=== PATIENT | male | born 1955 | race Hispanic/Latino ===

== ENCOUNTER 2017-08-25 09:33 | Outpatient (CLI) | payer MEDICARE ==
--- NOTE | 2017-08-25 12:47 | ULT ---
RIGHT UPPER QUADRANT ULTRASOUND: INDICATION: Pain. FINDINGS: There is coarsened, increased echotexture of the hepatic parenchyma without a discrete mass visualiz ed. No acute gallbladder pathology. The common duct is normal at 6 mm. No ascites. IMPRESSION: 1. No acute gallbladder pathology. 2. Coarsened, increased echotexture of the hepatic parenchyma. This could be on the basis of hepat ic steatosis or hepatocellular disease. This could be further assessed with dedicated liver functio n enzyme analysis. POS: [facility]
== END 2017-08-25 09:34 | disposition home or self-care (01) ==
LOC: ULT 09:33
PROVIDERS: ATTEND Surgery
DX: R10.9 Unspecified abdominal pain (principal); K76.89 Other specified diseases of liver
CPT/HCPCS: 76705

== ENCOUNTER 2018-01-18 16:24 | Inpatient (IN) | payer MEDICARE ==
[~2018-01-18 16:24] MED LIST: ISOVUE-370 76%-LOCM 1 ML ONE; Iopamidol 370 76% 50 ML VIAL FS ONE
[2018-01-18 16:45] LABS: #Basophils 0.1 thou/uL (0.0-0.2); #Eosinphils 0.1 thou/uL (0.0-0.7); #Lymphocytes 2.7 thou/uL (1.20-3.40); #Monocytes 0.9 thou/uL (0.11-0.59); #Neutrophils 10.4 thou/uL (1.40-6.50); %Basophils 0.5 % (0.0-1.0); %Eosinophils 0.5 % (0.0-10.0); %Lymphocytes 19.1 % (21.0-51.0); %Monocytes 6.4 % (0.0-10.0); %Neutrophils 73.4 % (42.0-75.0); Hemoglobin 14.7 g/dL (14.0-18.0); Mean Corpuscular HGB CONC 31.3 g/dL (32.0-36.0); Mean Corpuscular Hemoglobin 28.4 pg (27.0-31.0); Mean Corpuscular Volume 90.7 fl (80.0-94.0); Mean Platelet Volume 7.4 fL (7.4-10.4); Platelet Count 198 thou/uL (130-400); RBC Distribution Width 14.2 % (11.5-14.5); Red Blood Cell (RBC) Count 5.16 mill/uL (4.70-6.10); White Blood Cell (WBC) Count 14.2 thou/uL (4.8-10.8)
[2018-01-18 17:02] LABS: ALT (SGPT) 78 U/L (8-55); AST (SGOT) 79 U/L (5-34); Albumin 4.5 g/dL (3.5-5.0); Alkaline Phosphatase 116 U/L (40-150); Anion Gap 21 mmol/L (10-20); BUN (Urea Nitrogen) 17 mg/dL (8.4-25.7); Bilirubin, Total 1.2 mg/dL (0.2-1.2); CK (CPK) 91 U/L (30-200); Calc. Creatinine Clearance 0 mL/min (70-130); Calcium 9.9 mg/dL (7.8-10.44); Carbon Dioxide 17 mmol/L (22-29); Chloride 104 mmol/L (98-107); Estimated GFR-MDRD 35; Globulin 4.6 g/dL (2.4-3.5); Glucose 187 mg/dL (70-105); Lipase 27 U/L (8-78); Potassium 4.2 mmol/L (3.5-5.1); Protein, Total 9.1 g/dL (6.0-8.3); Sodium 138 mmol/L (136-145)
[2018-01-18 17:06] LABS: CKMB 1.6 ng/mL (0-6.6)
[2018-01-18] MEDS ORDERED: Ondansetron HCl/PF 4 MG/2 ML Vial ONE (17:20)
--- NOTE | 2018-01-18 17:25 | RAD ---
CHEST ONE VIEW: History: Chest pain Comparison: 09-11-15 FINDINGS: Cardiac silhouette is magnified by projection. Pulmonary vasculature is unremarkable. There is no lob ar consolidation or evidence of pneumothorax. school lunch monitor leads overlie the chest. IMPRESSION: No active cardiopulmonary abnormalities are demonstrated. POS: H
--- NOTE | 2018-01-18 19:19 | CT ---
CT ABDOMEN AND PELVIS WITH IV AND ORAL CONTRAST: History: Upper abdomen pain. FINDINGS: Comparison 09-18-15. The lung bases are clear. Gallbladder is now distended up to 13.3 cm. No biliary dilatation is otherw ise demonstrated. No stones or other signs of gallbladder inflammation. The spleen, kidneys, adrenal glands, and pancreas are unremarkable. Diverticula arise from the colon without adjacent inflammation. No evidence of bowel obstruction. Appendix is not inflamed. IMPRESSION: 1. Marked distention of the gallbladder without other abnormalities apparent. Clinical correlation re garding other signs and symptoms of gallbladder outlet obstruction and cholecystitis is required. POS: [facility]
--- NOTE | 2018-01-18 20:19 | ULT ---
RIGHT UPPER QUADRANT ULTRASOUND: History: Right upper quadrant pain. FINDINGS: Gallbladder is distended, as detailed on recent CT. There is no gallbladder wall thickening or perich olecystic fluid. Patient was reportedly not tender over the gallbladder fossa at the time of the exam . Small amount of nonshadowing sludge is present within the gallbladder lumen. Liver is diffusely ech ogenic. No free fluid. Common duct is 0.8 cm. IMPRESSION: 1. Distention of the common duct and gallbladder suggests possibility of chronic central biliary obst ruction and ascending lesion was not apparent on CT. Please consider endoscopic correlation. 2. Biliary sludge within the gallbladder. Patient was not tender over the gallbladder fossa at the ti me of the exam arguing against acute cholecystitis. 3. Hepatosteatosis. POS: [facility]
[2018-01-18] MEDS ORDERED: Nitroglycerin 2% Ointment 1 INCH/1 GM Packet ONE (20:49)
[2018-01-18 21:15] LABS: Bilirubin Negative (Negative); Blood, Urine Negative (Negative); Clarity CLEAR (Clear); Glucose, Urine (Dipstick) Negative (Negative); Leukocyte Negative (Negative); Nitrite Negative (Negative); Protein, Urine (Dipstick) Trace mg/dL (Neg-Trace); Specific Gravity, Urine 1.034 (1.002-1.036); pH, Urine 5.5 (5.0-9.0)
[2018-01-18] MEDS ORDERED: Piperacillin/Tazobactam 4.5 GM in Sodium Chloride 0.9% 100 ML IVPB SCH (21:15)
[2018-01-18 21:56] LABS: Troponin I 0.074 ng/mL (< 0.028)
--- NOTE | 2018-01-18 22:17 | CON ---
DATE OF CONSULTATION: 01/18/2018 REASON FOR CONSULTATION: Been consulted by Dr. Yousif at [facility] to see him urgent ly for right upper quadrant pain. HISTORY OF PRESENT ILLNESS: This is a 62-year-old male with a history of chronic back pain, BPH. He has actually seen Dr. Eason to make plans for prostate surgery who presents after extensive workup by Dr. Marshall, Dr. Hicks in the past for chronic episode upper abdominal pain. Tonight, he was serg cribing more sharp, severe pain in the right upper quadrant. His ultrasound shows a large gallbladde r without any inflammatory change. His CT scan is normal except for a dilated gallbladder. The baron ent does not have gallstones. Denies history of jaundice or pancreatitis. He denies any alcohol use or abuse. Pain is described as 10/10 in the right upper quadrant, radiates down towards his right b ack. He is also worried this may be his umbilical hernia is causing him problems. PAST MEDICAL HISTORY: Includes hypertension, hyperlipidemia, asthma. PAST SURGICAL HISTORY: Orthopedic right hip bilateral elbow, wrist and back. SOCIAL HISTORY: No smoking, alcohol or other drugs. ALLERGIES: OXYCONTIN. MEDICINES: He says he takes 7 medicines, unknown antihypertensive, unknown lipid drug. He also take s tramadol and a couple of other pain medicines that he is unsure of. He does think that they are na rcotics. He has not been taking them in the last few days because he did not feel well. REVIEW OF SYSTEMS: Ten system review of systems otherwise negative unless described above. PHYSICAL EXAMINATION: VITAL SIGNS: Blood pressure is 129/84, pulse is 107, respirations are 14. GENERAL: The patient is alert, oriented. He is shaky and appears very nervous. HEENT: Sclerae are anicteric. Oropharynx clear. NECK: No lymphadenopathy. CHEST: Clear. HEART: Increased rate, regular rhythm without murmur. ABDOMEN: Soft. He is tender in the right upper quadrant with localized guarding, no rebound tendern ess. No abdominal or inguinal hernias that I can feel. EXTREMITIES: No ischemia or edema to extremities. LABORATORY DATA: White blood cell count is 14, hemoglobin 14, platelet count is 198. Sodium 138, po tassium 4.2, creatinine 1.94. His lactic acid is 5.1, troponin 0.1, CK-MB 1.6. Lipase normal at 27. AST, ALT are elevated at 79 and 78. Ultrasound of the abdomen, distention of the gallbladder witho ut stones. CT of the abdomen, distention of the gallbladder without any other abnormality. ASSESSMENT AND PLAN: Severe upper abdominal pain in a patient with a history of recent EGD and being seen by Dr. Marshall, previously had a workup by Dr. Hicks. He was supposed to have an outpatient H BLUE scan, but there was some confusion about the scheduling. He also sounds like he takes a lot of n arcotics for his chronic back pain. He certainly does not have an acute abdomen. His CT scan shows no free air, free fluid, or inflammatory change. He is very tender in the right upper quadrant. Uns ure of the etiology of this is not explained by CT or ultrasound. He does have distention of the gal lbladder, which can be normal in and of itself is not an abnormality probably does need HIDA scan to rule out acalculous cholecystitis that would not be done until tomorrow. I recommended that he be ad mitted to the medical service.
--- NOTE | 2018-01-18 22:37 | PDOC.FPRHP ---
- History of Present Illness Chief Complaint: abd pain, diarrhea, nausea History of Present Illness: pt seen @ 2240 Pt is a 62 yo M w/ PMH of DMII, chronic back pain, htn, hld, previously dx'd mild transaminitis who presents with 2 day h/o diarrhea, nasuea w/o vomiting, sinus congestion, chills, and shaking that has progressively worsening. He has not tried anything at home to attempt to relieve the pain, but reports the pain is relieved by morphine. He states the pain is worse when he bends over or with movement. He describes the diarrhea as watery and is going approx 5-6 times a day. He denies chest pain, sob, changes in vision. He does see a specialist for his chronic pain and receives injections for that but denies any other opiate use besides tramadol. He had labs drawn in clinic that shoed a normal white count approx 1 week ago in addition to mild transaminitis with normal alk phos and a creatinine of 1.21. In the ED pt was given zosyn, morphine, aspirin and nitro. ED Course: In the ED pt was given zosyn, morphine, aspirin and nitro. - Allergies/Adverse Reactions Allergies Allergy/AdvReac Type Severity Reaction Status Date / Time oxycodone HCl Allergy Verified 09/30/15 18:22 [From OxyContin] - Home Medications Medication Instructions Recorded Confirmed Type Finasteride 5 mg PO DAILY 01/18/18 01/18/18 History Gabapentin [Gralise] 600 mg PO TID 01/18/18 01/19/18 History Linaclotide [Linzess] 290 mcg PO DAILY-AC 01/18/18 01/18/18 History Meloxicam [Mobic] 15 mg PO DAILY 01/18/18 01/18/18 History Omeprazole 40 mg PO BID 01/18/18 01/18/18 History Oxybutynin Chloride [Ditropan XL] 10 mg PO DAILY 01/18/18 01/18/18 History Tamsulosin HCl [Flomax] 0.4 mg PO BID 01/18/18 01/18/18 History metFORMIN HCl [Metformin HCl] 1,000 mg PO BID 01/18/18 01/18/18 History traMADol HCl [Ultram] 50 mg PO TID PRN 01/18/18 01/18/18 History Aspirin [Ecotrin] 81 mg PO DAILY 01/19/18 01/19/18 History tiZANidine HCl [Zanaflex] 4 mg PO TID PRN 01/19/18 01/19/18 History - History PMHx: chronic back pain, hepatic steatosis, CKD, DMII, HTN, HLD PSHx: Hip replacement FHx: Grandfather CVA Social: Denies tobacco, denies alcohol, denies drugs - Review of Systems General: reports: fever/chills, weight/appetite/sleep changes. denies: night sweats Eyes: denies: eye pain, vision changes ENT: reports: nasal congestion. denies: rhinorrhea Respiratory: denies: cough, congestion, shortness of breath Cardiovascular: denies: chest pain, palpitation, edema Gastrointestinal: reports: nausea, diarrhea, abdominal pain. denies: vomiting, constipation, GI bleeding Genitourinary: denies: dysuria Skin: denies: rashes, jaundice, itching Musculoskeletal: reports: pain, arthritis/arthralgias Neurological: reports: weakness. denies: numbness, syncope - Vital signs BP: 157/76 HR:106 RR: 21 Tmax: 99 Pox: 100% on RA Wt: 97Kg - Physical Exam Constitutional: awake, alert and oriented, other (Obese, mildly distressed) HEENT: normocephalic and atraumatic, PERRLA, EOMI, conjunctiva clear, no scleral icterus, grossly normal hearing, oropharynx clear Neck: supple, trachea midline, no LAD, no JVD Chest: no-tender to palpation, no lesions Heart: RRR, normal S1/S2, no murmurs/rubs/gallops, pulses present, no edema Lungs: CTAB, no respiratory distress, good air movement, no rales/rhonchi, no wheezing, no retractions Abdomen: soft, bowel sounds present, other (rectus diastasis, diffusely ttp but distractable. No focal tenderness. Negfative murphys, negative mcburneys) Musculoskeletal: normal tone, ROM grossly normal Neurological: no focal deficit Skin: no rash/lesions, good turgor, capillary refill <2 seconds, no jaundice Heme/Lymphatic: no purpura, no petechia Psychiatric: normal mood and affect FMR H&P: Results - Labs Result Diagrams: 01/19/18 03:56 01/19/18 03:56 Lab results: WBC 14.2 thou/uL (4.8-10.8) H 01/18/18 16:30 Hgb 14.7 g/dL (14.0-18.0) 01/18/18 16:30 Hct 46.8 % (42.0-52.0) 01/18/18 16:30 MCV 90.7 fl (80.0-94.0) 01/18/18 16:30 Plt Count 198 thou/uL (130-400) 01/18/18 16:30 Neutrophils % 73.4 % (42.0-75.0) 01/18/18 16:30 Sodium 138 mmol/L (136-145) 01/18/18 16:30 Potassium 4.2 mmol/L (3.5-5.1) 01/18/18 16:30 Chloride 104 mmol/L (98-107) 01/18/18 16:30 Carbon Dioxide 17 mmol/L (22-29) L 01/18/18 16:30 BUN 17 mg/dL (8.4-25.7) 01/18/18 16:30 Creatinine 1.94 mg/dL (0.6-1.3) H 01/18/18 16:30 Glucose 187 mg/dL (70-105) H 01/18/18 16:30 Lactic Acid 5.1 mmol/L (0.5-2.2) H* 01/18/18 16:30 Calcium 9.9 mg/dL (7.8-10.44) 01/18/18 16:30 Total Bilirubin 1.2 mg/dL (0.2-1.2) 01/18/18 16:30 AST 79 U/L (5-34) H 01/18/18 16:30 ALT 78 U/L (8-55) H 01/18/18 16:30 Alkaline Phosphatase 116 U/L (40-150) 01/18/18 16:30 Creatine Kinase 91 U/L (30-200) 01/18/18 16:30 CK-MB (CK-2) 1.6 ng/mL (0-6.6) 01/18/18 16:30 Serum Total Protein 9.1 g/dL (6.0-8.3) H 01/18/18 16:30 Albumin 4.5 g/dL (3.5-5.0) 01/18/18 16:30 Lipase 27 U/L (8-78) 01/18/18 16:30 Urine Ketones Negative mg/dL (Negative) 01/18/18 21:09 Urine Blood Negative (Negative) 01/18/18 21:09 Urine Nitrite Negative (Negative) 01/18/18 21:09 Ur Leukocyte Esterase Negative (Negative) 01/18/18 21:09 - EKG Interpretation EKG: sinus tachycardia - Radiology Interpretation Chest x-ray Status: report reviewed by me (NAD) CT scan - abdomen Status: report reviewed by me (Marked distension of gallbladder) US - abdomen Status: report reviewed by me (Hepatic steatosis. Dilated common duct. Biliary sludge. Negative sonographic Yousif's.) FMR H&P: A/P - Problem List (1) Sepsis due to other etiology Current Visit: Yes Status: Acute Code(s): A41.89 - OTHER SPECIFIED SEPSIS (2) Lactic acidosis Current Visit: Yes Status: Acute Code(s): E87.2 - ACIDOSIS (3) Gastroenteritis Current Visit: Yes Status: Suspected Code(s): K52.9 - NONINFECTIVE GASTROENTERITIS AND COLITIS, UNSPECIFIED (4) Transaminitis Current Visit: Yes Status: Chronic Code(s): R74.0 - NONSPEC ELEV OF LEVELS OF TRANSAMNS & LACTIC ACID DEHYDRGNSE (5) JAZMYN (acute kidney injury) Current Visit: Yes Status: Acute Code(s): N17.9 - ACUTE KIDNEY FAILURE, UNSPECIFIED (6) DMII (diabetes mellitus, type 2) Current Visit: Yes Status: Chronic (7) Hepatic steatosis Current Visit: Yes Status: Suspected Code(s): K76.0 - FATTY (CHANGE OF) LIVER, NOT ELSEWHERE CLASSIFIED (8) HTN (hypertension) Current Visit: Yes Status: Chronic Code(s): I10 - ESSENTIAL (PRIMARY) HYPERTENSION - Plan 1) Sepsis: - WBC 14K, tachycardic @ 102, tachypnic @ 22 abd source suspected - BP stable, admit medical - likely 2/2 viral gastroenteritis vs bacterial gastroenteritis/colitis vs cholecystitis - will check stool studies - pt had negative sonographic murphys, negative ct and has had mildly elevated transaminases in the past. Given this and normal alk phos, acute acalculous cholecystitis is unlikely - Continue IVF NS @ 150mls/hr - continue zosyn 2) Lactic acidosis - Has trended down - Continue IVF with NS @ 150mls/hr - 2/2 1 in addition to decreased po intake and diarrhea 3) Gastroenteritis: - Suspected - See #1 - Will check Flu rapid swab 4) Transaminitis: - chronic, unchanged from clinic labs, given US finding likely 2/2 steatosis - am cmp 5) JAZMYN: - 2/2 volume depletion - IVF NS @ 150 - AM CMP, trend and avoid nephrotoxic agents - recent creatinine in clinic 1.2 - will check urine NA, Ur Cr - likely pre-renal 6) DMII: - Will hold metformin 2/2 jazmyn - Mild SSI - accuchecks ACHS - consistent carb/hh diet 7) Hepatic steatosis, suspected: - See 4 8) HTN: - Not currently on medications at home - will trend vitals - BP meds as indicated - AVOID kris/arb 2/2 JAZMYN 9) Chronic pain: - continue home meds - UDS 11) PPX: pepcid and scds for GI and DVT PPX, respectively Disposition/LOS: stable, >/= 2 days. Symptomatic meds will be provided FMR H&P: Upper Level - Pertinent history Patient is 62yo M with PMHx of chronic low back pain, T2DM, BPH, HLD and GERD who presents with abdominal pain. Reports he has had abd pain for the past 2wks but it has worsened over the past 2 days. He was seen at [facility] today and was tachycardic and diaphoretic and instructed to go to the ED for further evaluation. Also reports chills, nausea, diarrhea and cough. Reports diarrhea over the past 2 days about 5 episodes of non-bloody, watery diarrhea/day. Of note, patient is followed by Dr. Hicks for his ventral hernia and has plans for surgery. Also followed by Dr. Marshall of GI and looking over records had an EGD done on 09/09/17 with path showing reactive gastropathy, no H.pylori or Barretts. - Pertinent findings Gen: obese, tremulous HEENT: PERRLA CV: S1 S2, RRR Resp: CTAB Abd: TTP diffusely, more significant at RUQ but distractible, no rebound, diastasis recti Ext: no cyanosis or edema - Plan Date/Time: 01/18/18 5183 ISuha, have evaluated this patient and agree with findings/plan as outlined by human resource intern resident. Pertinent changes/additions are listed here. 1. Abd pain: CT Abd showing marked distension of gallbladder and RUQ showing gallbladder sludge and distension of common duct and gallbladder suggesting possible biliary obstruction. Dr. Hernandez of gen surg was consulted from the ED due to concern for acute abd. Not sure of etiology but recommend HIDA scan to r /o acalculous cholecystitis. Monitor closely overnight. 2. Sepsis: likely 2/2 gastroenteritis vs. abd etiology. Patient with leukocytosis (WBC of 14.2), tachycardia (HR 106) and tachypnea (RR 21). CXR and UA negative. Check flu. Blood and urine cxs pending. Cont Zosyn. Of note, patient was seen at [facility] on 01/14/18 for surgical clearance and had labs done at that time showing WBC of 7.7. 3. Lactic acidosis: patient with elevated lactate of 5.1. Could be secondary to dehydration from gastroenteritis or dev of acute abd. Given 2L bolus of NS in ED. Cont IVF and monitor q2H. 4. Gastroenteritis: likely viral etiology. Obtain stool studies. 5. JAZMYN on CKD2: Cr of 1.94 and normal on 01/14/17 with Cr of 1.21. FeNa studies. Gentle hydration. 6. Chronic transaminitis 2/2 hepatosteatosis: hep panel on 11/2016 negative. 7. Indeterminate trops: asymptomatic. Trend. 8. Chronic lower back pain: Followed by Dr. Good of pain mgmt. at [facility]. States he receives 3 meds for his pain- tramadol, gabapentin and doesnt know the 3rd med as well as injections. According to our records he is also on Naproxen. Hold NSAIDS due to JAZMYN. Obtain UDS. 9. T2DM: A1c of 7.7%. Hold metformin due to JAZMYN. Accuchecks ACHS. 10. GERD: cont home PPI. 11. BPH: cont home Flomax 12. HLD: cont home crestor 13. Diet: NPO 14. PPx: SCDs 15. Code Status: Full Attending Addendum - Attending Addendum Date/Time: 01/19/18 5005 I personally evaluated the patient and discussed the management with Dr. Randall and Maximiliano. Seen on 01/18. I agree with the History, Examination, Assessment and Plan documented above with any addition or exceptions noted below. Sepsis / presumed abdominal source (gastro vs GB vs other) with JAZMYN, lactic acidosis -continue zosyn -cultures -serial abdominal exam -HIDA ordered -fluid, recheck creatinine DM/HTN/Obesity -hold metformin, sugar checks -hold ACEI/ARB, monitor -diet/exercise Hernia -stable, reducible, NTTP
[2018-01-18] MEDS ORDERED: Ondansetron HCl/PF 4 MG/2 ML Vial IVP PRN ×2 (23:04→23:29)
[2018-01-18] MEDS ORDERED: Ondansetron ODT 4 MG TAB SL PRN (23:04)
[2018-01-18] MEDS ORDERED: Morphine 5 MG/ML SYRINGE SLOW IVP PRN (23:05)
[2018-01-18 23:22] VITALS: BMI 33.6
[2018-01-19] MEDS: Sodium Chloride 0.9% 1,000 ML IV SCH ×6 (00:52→17:52)
[2018-01-19] MEDS: Morphine 5 MG/ML SYRINGE SLOW IVP PRN ×2 (00:53→06:36)
[2018-01-19 01:06] LABS: Troponin I 0.071 ng/mL (< 0.028)
[2018-01-19] MEDS ORDERED: Dextrose 50% Abboject 50 ML SYRINGE SLOW IVP PRN (01:49)
[2018-01-19] MEDS ORDERED: HumaLOG 300 UNITS/3 ML VIAL SC PRN (01:49)
[2018-01-19] MEDS ORDERED: Dextrose 5% in Water 1,000 ML IV PRN (01:49)
[2018-01-19 02:12] LABS: Amphetamine Not Detected (NotDetected); Barbiturates Screen Not Detected (NotDetected); Benzodiazepine Screen Not Detected (NotDetected); Cocaine Metabolite Screen Not Detected (NotDetected); Medtox Control Line Valid? VALID (VALID); Medtox Reader # READER 1; Methadone Not Detected (NotDetected); Methamphetamine Not Detected (NotDetected); Opiate Screen Detected (NotDetected); Oxycodone Screen Not Detected (NotDetected); Phencyclidine (PCP) Not Detected (NotDetected); THC/Cannabinoid Screen Not Detected (NotDetected); Tricyclic Screen Not Detected (NotDetected)
[2018-01-19 02:25] LABS: Creatinine, Urine 127.92 mg/dL (63-166)
[2018-01-19 04:09] LABS: #Eosinphils 0.1 thou/uL (0.0-0.7); #Lymphocytes 2.3 thou/uL (1.20-3.40); #Monocytes 0.7 thou/uL (0.11-0.59); #Neutrophils 6.9 thou/uL (1.40-6.50); %Basophils 0.4 % (0.0-1.0); %Eosinophils 1.4 % (0.0-10.0); %Lymphocytes 23.2 % (21.0-51.0); %Monocytes 7.2 % (0.0-10.0); %Neutrophils 67.8 % (42.0-75.0); Hemoglobin 12.1 g/dL (14.0-18.0); Mean Corpuscular HGB CONC 31.9 g/dL (32.0-36.0); Mean Corpuscular Volume 90.8 fl (80.0-94.0); Mean Platelet Volume 6.8 fL (7.4-10.4); Platelet Count 122 thou/uL (130-400); RBC Distribution Width 13.9 % (11.5-14.5); Red Blood Cell (RBC) Count 4.18 mill/uL (4.70-6.10); White Blood Cell (WBC) Count 10.1 thou/uL (4.8-10.8)
[2018-01-19 04:22] LABS: Lactic Acid 2.4 mmol/L (0.5-2.2)
[2018-01-19 04:26] LABS: ALT (SGPT) 75 U/L (8-55); AST (SGOT) 85 U/L (5-34); Albumin 3.7 g/dL (3.5-5.0); Alkaline Phosphatase 94 U/L (40-150); Anion Gap 14 mmol/L (10-20); BUN (Urea Nitrogen) 15 mg/dL (8.4-25.7); Bilirubin, Total 1.1 mg/dL (0.2-1.2); Calc. Creatinine Clearance 80 mL/min (70-130); Calcium 8.5 mg/dL (7.8-10.44); Carbon Dioxide 25 mmol/L (22-29); Chloride 104 mmol/L (98-107); Estimated GFR-MDRD 53; Globulin 3.3 g/dL (2.4-3.5); Glucose 160 mg/dL (70-105); Sodium 139 mmol/L (136-145)
[2018-01-19] MEDS: Ondansetron ODT 4 MG TAB PO PRN ×2 (04:46→17:48)
[2018-01-19] MEDS: tiZANidine HCl 4 MG TAB PO PRN ×2 (04:46→17:49)
[2018-01-19] MEDS: Piperacillin/Tazobactam 3.375 GM in Sodium Chloride 0.9% 100 ML IVPB SCH ×4 (04:46→20:35)
[2018-01-19] MEDS ORDERED: Sodium Chloride 0.9% 1,000 ML IV SCH (09:00)
--- NOTE | 2018-01-19 09:01 | PDOC.FM ---
- Subjective Subjective: Pt seen at bedside in NAD. MULU overnight but pt notes he continues to have diarrhea. Pt denies CP, SOB, vomiting. - Objective MAR Reviewed: Yes Vital Signs & Weight: Vital Signs (12 hours) Temp Pulse Resp BP Pulse Ox 01/19/18 07:37 97.7 F 72 16 92/54 L 99 01/19/18 04:00 98.9 F 91 28 H 138/79 96 01/19/18 00:58 98.9 F 91 30 H 142/69 H 96 Weight Weight 97.386 kg I&O: 01/18/18 01/19/18 01/20/18 06:59 06:59 06:59 Intake Total 799 Output Total 250 Balance 549 Result Diagrams: 01/19/18 03:56 01/19/18 03:56 <Arnie Birmingham - Last Filed: 01/19/18 08:57> - Objective Vital Signs & Weight: Vital Signs (12 hours) Temp Pulse Resp BP BP Pulse Ox 01/19/18 13:53 98 F 68 18 124/59 L 94 L 01/19/18 13:10 98.1 F 70 16 141/69 H 98 01/19/18 09:20 70 119/87 01/19/18 08:00 97.7 F 70 16 97 01/19/18 07:37 97.7 F 72 16 92/54 L 99 01/19/18 04:00 98.9 F 91 28 H 138/79 96 Weight Weight 97.386 kg I&O: 01/18/18 01/19/18 01/20/18 06:59 06:59 06:59 Intake Total 799 Output Total 250 Balance 549 Result Diagrams: 01/19/18 03:56 01/19/18 03:56 <Roland Watts - Last Filed: 01/19/18 15:20> Phys Exam - Physical Examination obese, tremulous HEENT: PERRLA Respiratory: no wheezing, clear to auscultation bilateral Cardiovascular: RRR, no significant murmur Gastrointestinal: positive bowel sounds TTP diffusely, distractable but more sig RUQ, no rebound diastasis recti, reducible Musculoskeletal: pulses present Neurological: moves all 4 limbs Psychiatric: normal affect, A&O x 3 <Arnie Birmingham - Last Filed: 01/19/18 08:57> Dx/Plan (1) Sepsis due to other etiology Code(s): A41.89 - OTHER SPECIFIED SEPSIS Status: Acute Plan: -pt presented with multiple complaints but namely abd pain, diarrhea, and chills -initial concern for acute abd ruled out, general surgery recommendations greatly appreciated -RUQ US showed dilated GB with some sludge but no evidence of acute cholecystitis -pt had tachycardia, mild tachypnea, leukocytosis and likely GI source, meeting criteria for sepsis -multiple stool studies pending -continue empiric zosyn at this time -continue aggressive IVF -proceed with HIDA scan this AM (2) Lactic acidosis Code(s): E87.2 - ACIDOSIS Status: Acute Plan: -likely 2/2 above, continue to trend with IVF and abx (3) JAZMYN (acute kidney injury) Code(s): N17.9 - ACUTE KIDNEY FAILURE, UNSPECIFIED Status: Acute Plan: -likely 2/2 hypovolemia due to diarrhea -improving, cont to monitor (4) DMII (diabetes mellitus, type 2) Status: Chronic Plan: -hold home meds -accuchecks and SSI (5) HTN (hypertension) Code(s): I10 - ESSENTIAL (PRIMARY) HYPERTENSION Status: Chronic Plan: -at goal, continue to monitor (6) Hepatic steatosis Code(s): K76.0 - FATTY (CHANGE OF) LIVER, NOT ELSEWHERE CLASSIFIED Status: Chronic Plan: -hx of hepatic steatosis -LFTs at baseline - Plan Plan: Disposition: Pt stable. Continue to monitor closely. Proceed with HIDA scan this AM. Pt is admitted under inpatient orders for sepsis. <Arnie Birmingham - Last Filed: 01/19/18 08:57> Attending Addendum - Attending Addendum Date/Time: 01/19/18 5969 I personally evaluated the patient and discussed the management with Dr. Birmingham. I agree with the History, Examination, Assessment and Plan documented above with any addition or exceptions noted below. Recently returned from HIDA. Generalized abd pain. GS and have seen pt. Abd tender but no rebound or referred rebound. Cardiology consulted for surgical risk eval. <Roland Watts - Last Filed: 01/19/18 15:20>
[2018-01-19] MEDS: Famotidine/PF 20 mg/2ml Vial SLOW IVP SCH (09:37)
[2018-01-19 09:45] LABS: Syphilis Antibody Nonreactive (Nonreactive); Syphilis Antibody Index 0.07 S/CO (<1.00 Non-Reactive)
[2018-01-19 10:03] LABS: HIV (1/2) Antibody/Antigen NonReactive (NonReactive)
[2018-01-19 10:04] LABS: HIV 1/2 INDEX 0.29 S/CO (<1.00)
[2018-01-19] MEDS ORDERED: Magnesium 2 GM/NS 0.9% 100 ML 2 GM in Premix Bag 1 BAG IVPB SCH (11:00)
[2018-01-19] MEDS: Aspirin 81 mg Enteric Coated Tablet PO SCH (12:27)
[2018-01-19] MEDS: Oxybutynin ER 5 MG TAB PO SCH (12:28)
[2018-01-19] MEDS: Tamsulosin HCl 0.4 MG CAP PO SCH ×2 (12:28→20:34)
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
--- NOTE | 2018-01-19 14:12 | NM ---
HIDA SCAN: Indication: Pain. Comparison: Right upper quadrant ultrasound 01-18-18. Radiopharmaceutical: 5.3 mCi Technetium 99M Mebrofenin IV. 1.9 micrograms CCK 30 minutes prior to exa mination. FINDINGS: The gallbladder activity is seen at 5 minutes. Bowel activity is demonstrated by the 20 minute christopher. IMPRESSION: 1. Visualization of the gallbladder virtually excludes cystic duct obstruction. 2. There is no appreciable obstruction seen involving the common duct with bowel activity demonstrate d by the 20 minute time christopher. POS: [facility]
[2018-01-19] MEDS: traMADol HCl 50 MG TAB PO PRN (17:49)
--- NOTE | 2018-01-19 23:56 | CON ---
DATE OF CONSULTATION: 01/19/2018 HISTORY OF PRESENT ILLNESS: The patient is a 62-year-old gentleman with no history of coronary artery disease who was admitted with abdominal discomfort. The patient has a history of hypertension, and diabetes mellitus. The patient denies any history of chest discomfort or dyspnea. The patient does have limited mobility due to chronic back problem difficulties. The patient was admitted with abdominal discomfort and may need to undergo surgery. PAST MEDICAL HISTORY: 1. Hypertension. 2. Diabetes mellitus. 3. Hypercholesterolemia. 4. Asthma. PAST SURGICAL HISTORY: Hip surgery, carpal tunnel surgery, elbow surgery. SOCIAL HISTORY: He is a nonsmoker. MEDICATIONS: Aspirin 81 daily, gabapentin 600 t.i.d., metformin 1000 b.i.d., Meloxicam 15 daily, omeprazole 40 b.i.d., Flomax 0.4 b.i.d., Finasteride 5 mg daily,and Linzess 290 mcg p.o. daily. FAMILY HISTORY: No strong family history of heart disease. Father did have myocardial infarction at age 74. ALLERGIES: OXYCODONE. REVIEW OF SYSTEMS: Ten-point system otherwise unremarkable. No history of easy bruising, bleeding, bright red blood per rectum. Ten-point system unremarkable. PHYSICAL EXAMINATION: GENERAL: This is an obese gentleman, in no acute distress. VITAL SIGNS: Blood pressure 124/59. NECK: No jugular distention, no carotid bruits. LUNGS: Clear to auscultation. HEART: Regular rate and rhythm, normal S1, S2, no murmurs. ABDOMEN: Nondistended. EXTREMITIES: Show no edema. SKIN: Warm and dry. NEUROLOGIC: Nonfocal. VASCULAR: Radial pulses are 2+. LABORATORY DATA AND IMAGING: White blood count 10.1, hemoglobin 12.1, hematocrit 37.9, platelets are 122. Sodium is 139, potassium 4.0, chloride 104 , bicarbonate 25, BUN 15, creatinine 1.36. Troponin 0.071. His EKG revealed sinus tachycardia, otherwise normal ECG. IMPRESSION: 1. Abdominal discomfort. 2. Hypertension. 3. Dyslipidemia. 4. Asthma. 5. Diabetes mellitus. 6. Indeterminate troponin level. This gentleman may need to undergo noncardiac surgery. His EKG shows no acute ST-T wave changes. His troponin is indeterminate. The patient is asymptomatic. The patient does have limited mobility, but appears to be an acceptable risk for noncardiac surgery. We will check an echocardiogram. We will follow this patient with you through his hospitalization. PHONG
[2018-01-20] MEDS: traMADol HCl 50 MG TAB PO PRN ×3 (00:24→21:51)
[2018-01-20] MEDS: Sodium Chloride 0.9% 1,000 ML IV SCH ×4 (02:48→22:30)
[2018-01-20] MEDS: Piperacillin/Tazobactam 3.375 GM in Sodium Chloride 0.9% 100 ML IVPB SCH ×4 (02:53→21:38)
[2018-01-20 05:35] LABS: Anion Gap 9 mmol/L (10-20); BUN (Urea Nitrogen) 11 mg/dL (8.4-25.7); Calc. Creatinine Clearance 95 mL/min (70-130); Calcium 7.9 mg/dL (7.8-10.44); Carbon Dioxide 25 mmol/L (22-29); Chloride 108 mmol/L (98-107); Estimated GFR-MDRD 66; Glucose 124 mg/dL (70-105); Magnesium 1.8 mg/dL (1.6-2.6); Potassium 4.2 mmol/L (3.5-5.1); Sodium 138 mmol/L (136-145)
--- NOTE | 2018-01-20 06:47 | PDOC.FM ---
- Subjective Subjective: Pt seen at bedside in [facility] [place] overnight, pt notes his abd pain and diarrhea are slightly improved but that he "is ready for surgery." Pt denies BOYD, CP, SOB , NVD, and is tolerating PO well. - Objective MAR Reviewed: Yes Vital Signs & Weight: Vital Signs (12 hours) Temp Pulse Resp BP Pulse Ox 01/20/18 03:33 98.4 F 90 20 145/75 H 96 01/20/18 00:00 97.8 F 63 20 143/69 H 96 01/19/18 20:00 97.8 F 63 20 125/60 96 Weight Weight 97.386 kg I&O: 01/18/18 01/19/18 01/20/18 06:59 06:59 06:59 Intake Total 799 Output Total 250 Balance 549 Result Diagrams: 01/19/18 03:56 01/20/18 04:53 <Arnie Birmingham - Last Filed: 01/20/18 08:38> - Objective Vital Signs & Weight: Vital Signs (12 hours) Temp Pulse Resp BP Pulse Ox 01/20/18 07:47 98.7 F 90 16 174/81 H 96 01/20/18 03:33 98.4 F 90 20 145/75 H 96 01/20/18 00:00 97.8 F 63 20 143/69 H 96 Weight Weight 97.885 kg I&O: 01/19/18 01/20/18 01/21/18 06:59 06:59 06:59 Intake Total 799 2170 Output Total 250 1780 Balance 549 390 Result Diagrams: 01/19/18 03:56 01/20/18 04:53 <Syeda Aguilera - Last Filed: 01/20/18 10:45> Phys Exam - Physical Examination obese HEENT: PERRLA Respiratory: no wheezing, clear to auscultation bilateral Cardiovascular: RRR, no significant murmur Gastrointestinal: positive bowel sounds mildy TTP diffusely, distractable, no rebound Musculoskeletal: pulses present Neurological: moves all 4 limbs Psychiatric: normal affect <Arnie Birmingham - Last Filed: 01/20/18 08:38> Dx/Plan (1) Sepsis due to other etiology Code(s): A41.89 - OTHER SPECIFIED SEPSIS Status: Acute Plan: -pt presented with multiple complaints but namely abd pain, diarrhea, and chills -initial concern for acute abd ruled out, general surgery recommendations greatly appreciated -RUQ US showed dilated GB with some sludge but no evidence of acute cholecystitis -pt had tachycardia, mild tachypnea, leukocytosis and likely GI source, meeting criteria for sepsis -multiple stool studies negative -continue empiric zosyn at this time -continue IVF -HIDA scan 01/19 wnl -cardiology consulted by GS for surgical clearance, recs greatly appreciated. awaiting TTE. (2) Diastasis of rectus abdominis Code(s): M62.08 - SEPARATION OF MUSCLE (NONTRAUMATIC), OTHER SITE Status: Acute Plan: -general surgery recs greatly appreciated (3) BPH (benign prostatic hyperplasia) Code(s): N40.0 - BENIGN PROSTATIC HYPERPLASIA WITHOUT LOWER URINRY TRACT SYMP Status: Acute QualifierTitle: Lower urinary tract symptom presence: symptoms present Lower urinary tract symptom detail: straining on urination Qualified Code(s): N40.1 - Benign prostatic hyperplasia with lower urinary tract symptoms; R39.16 - Straining to void; R39.16 - Straining to void Plan: -pt with hx of BPH and sees urology, Dr. Eason outpatient -per reports, pt had unspecified procedure scheduled -will coordinate care with urology and determine if procedure needs to be done inpatient (4) Lactic acidosis Code(s): E87.2 - ACIDOSIS Status: Resolved Plan: -likely 2/2 above, continue to trend with IVF and abx -normalized (5) JAZMYN (acute kidney injury) Code(s): N17.9 - ACUTE KIDNEY FAILURE, UNSPECIFIED Status: Acute Plan: -likely 2/2 hypovolemia due to diarrhea -improving, cont to monitor (6) DMII (diabetes mellitus, type 2) Status: Chronic Plan: -hold home meds -accuchecks and SSI (7) HTN (hypertension) Code(s): I10 - ESSENTIAL (PRIMARY) HYPERTENSION Status: Chronic Plan: -at goal, continue to monitor (8) Hepatic steatosis Code(s): K76.0 - FATTY (CHANGE OF) LIVER, NOT ELSEWHERE CLASSIFIED Status: Chronic Plan: -hx of hepatic steatosis -LFTs at baseline - Plan Plan: dispo: Pt stable and subjectively improving. Specialist recs greatly appreciated. Continue to monitor closely. <Arnie Birmingham - Last Filed: 01/20/18 08:38> Attending Addendum - Attending Addendum Date/Time: 01/20/18 1015 I personally evaluated the patient and discussed the management with Dr. Birmingham I agree with the History, Examination, Assessment and Plan documented above with any addition or exceptions noted below. Gallbladder dilation and sludge- HIDA scan normal. Appreciate surgical recs. Patient getting cardiac clearance and ECHO pending. Diarrhea- stool studies negative. resolved this am. JAZMYN-resolved Diathesis rectis -await surgical recs. <Syeda Aguilera - Last Filed: 01/20/18 10:45>
[2018-01-20] MEDS: Famotidine/PF 20 mg/2ml Vial SLOW IVP SCH (09:20)
[2018-01-20] MEDS: Tamsulosin HCl 0.4 MG CAP PO SCH ×2 (09:20→21:35)
[2018-01-20] MEDS: Aspirin 81 mg Enteric Coated Tablet PO SCH (09:20)
[2018-01-20] MEDS: Oxybutynin ER 5 MG TAB PO SCH (09:20)
[2018-01-20] MEDS: Morphine 5 MG/ML SYRINGE SLOW IVP PRN ×2 (11:38→17:45)
--- NOTE | 2018-01-20 17:50 | PDOC.GSCN ---
Surgery Consult: HPI - Consult details Date: 01/19/18 Time: 13:00 Reason for consult: abdominal pain History of present illness: 01/20/18 18:01 Patient seen yesterday for abdominal pain. I had previously seen him in the clinic for upper abdominal pain and he had an extensive workup including a normal CT, ultrasound, an upper endoscopy. He was supposed to get a HIDA scan but missed that appointment twice. He came back to the hospital with generalized abdominal pain and diarrhea and weakness, and shortness of breath. Stool studies have come back negative. A CT was unremarkable except for distended gallbladder. A HIDA scan showed normal filling of the gallbladder. White count was mildly elevated as were her initial LFTs. Troponins were indeterminate. The patient is feeling somewhat better today. He states that his symptoms had started 2 days before his admission. He has a noticeable tremor which he said also started 2 days before admission 01/20/18 18:03 Past medical, past surgical, and family history are as per my note which is in the chart. Medications are reviewed and are as per the computer record. He has adverse drug reaction to oxycodone but no true drug allergies. On physical examination, HEENT is unremarkable, lungs are clear and heart is regular. He has diffuse mild abdominal tenderness but no rigidity rebound or guarding. He has a small reducible umbilical hernia. No focal findings or masses are appreciated. Extremity's are warm and well perfused. Labs and radiology results are as per history of present illness. Assessment/plan:. The patient has generalized abdominal pain and diarrhea which are likely due to a viral gastroenteritis. Stool studies have all come back negative and I do not believe that this has anything to do with his gallbladder. His gallbladder is likely distended since he has not been eating normally for 2 days, and I do not believe that his gallbladder needs to be removed urgently given a normal HIDA. He has indeterminate troponins and cardiology has been consulted and we're still awaiting the results of that consult. If he is otherwise ready to be discharged home we can certainly schedule gallbladder surgery as an outpatient; although I am unsure that this is the cause of his upper abdominal pain, no other etiology has been found and the patient has expressed desire to proceed with surgery. He also has plans to proceed with outpatient urologic surgery for his prostate, so I will need to discuss with Dr. Phillips the timing of gallbladder surgery. Surgery Consult: Exam - Vital signs Vital signs: Vital Signs - Most Recent Temp Pulse Resp BP Pulse Ox 98.8 F 80 16 187/90 H 95 01/20/18 15:39 01/20/18 15:39 01/20/18 15:39 01/20/18 15:39 01/20/18 15:39 Surgery Consult: Meds - Medications Medications: Current Medications Aspirin (Ecotrin) 81 mg PO DAILY [facility] Last Admin: 01/20/18 09:20 Dose: 81 mg Atorvastatin Calcium (Lipitor) 40 mg PO HS [facility] Dextrose/Water (Dextrose 50%) 25 gm SLOW IVP PRN PRN PRN Reason: Hypoglycemia Famotidine (Pepcid) 20 mg SLOW IVP DAILY [facility] Last Admin: 01/20/18 09:20 Dose: 20 mg Glucagon (Glucagon) 1 mg IM PRN PRN PRN Reason: Hypoglycemia Sodium Chloride (Normal Saline 0.9%) 1,000 mls @ 150 mls/hr IV .Q6H40M [facility] Last Admin: 01/20/18 11:37 Dose: 1,000 mls Piperacillin Sod/Tazobactam (Sod 3.375 gm/ Sodium Chloride) 100 mls @ 200 mls/ hr IVPB 0300,0900,1500,2100 [facility] Last Admin: 01/20/18 15:45 Dose: 100 mls Dextrose/Water (D5w) 1,000 mls @ 0 mls/hr IV .Q0M PRN; As Directed PRN Reason: Hypoglycemia Insulin Human Lispro (Humalog) 0 units SC .MILD SLIDING SCALE PRN PRN Reason: Mild Correctional Scale Lisinopril (Zestril) 5 mg PO BID [facility] Morphine Sulfate (Morphine) 2 mg SLOW IVP Q4H PRN PRN Reason: Moderate to Severe Pain (6-10) Last Admin: 01/20/18 11:38 Dose: 2 mg Ondansetron HCl (Zofran Odt) 4 mg PO Q6H PRN PRN Reason: Nausea/Vomiting Last Admin: 01/19/18 17:48 Dose: 4 mg Ondansetron HCl (Zofran) 4 mg IVP Q6H PRN PRN Reason: Nausea/Vomiting Oxybutynin Chloride (Ditropan Xl) 10 mg PO DAILY [facility] Last Admin: 01/20/18 09:20 Dose: 10 mg Pantoprazole Sodium (Protonix) 40 mg PO BID [facility] Last Admin: 01/20/18 09:20 Dose: 40 mg Sodium Chloride (Flush - Normal Saline) 10 ml IVF Q12HR [facility] Last Admin: 01/20/18 11:43 Dose: Not Given Sodium Chloride (Flush - Normal Saline) 10 ml IVF PRN PRN PRN Reason: Saline Flush Tamsulosin HCl (Flomax) 0.4 mg PO BID [facility] Last Admin: 01/20/18 09:20 Dose: 0.4 mg Tizanidine HCl (Zanaflex) 4 mg PO TID PRN PRN Reason: Muscle Spasm Last Admin: 01/19/18 17:49 Dose: 4 mg Tramadol HCl (Ultram) 50 mg PO TID PRN PRN Reason: Pain Last Admin: 01/20/18 09:21 Dose: 50 mg - Allergies Allergies/Adverse Reactions: Allergies Allergy/AdvReac Type Severity Reaction Status Date / Time oxycodone HCl Allergy Verified 09/30/15 18:22 [From OxyContin] Surgery Consult: Results - Labs Result Diagrams: 01/19/18 03:56 01/20/18 04:53 Lab results: Laboratory Results WBC 10.1 thou/uL (4.8-10.8) 01/19/18 03:56 RBC 4.18 mill/uL (4.70-6.10) L 01/19/18 03:56 Hgb 12.1 g/dL (14.0-18.0) L 01/19/18 03:56 Hct 37.9 % (42.0-52.0) L 01/19/18 03:56 MCV 90.8 fl (80.0-94.0) 01/19/18 03:56 MCH 29.0 pg (27.0-31.0) 01/19/18 03:56 MCHC 31.9 g/dL (32.0-36.0) L 01/19/18 03:56 RDW 13.9 % (11.5-14.5) 01/19/18 03:56 Plt Count 122 thou/uL (130-400) L 01/19/18 03:56 MPV 6.8 fL (7.4-10.4) L 01/19/18 03:56 Neutrophils % 67.8 % (42.0-75.0) 01/19/18 03:56 Lymphocytes % 23.2 % (21.0-51.0) 01/19/18 03:56 Monocytes % 7.2 % (0.0-10.0) 01/19/18 03:56 Eosinophils % 1.4 % (0.0-10.0) 01/19/18 03:56 Basophils % 0.4 % (0.0-1.0) 01/19/18 03:56 Neutrophils # 6.9 thou/uL (1.40-6.50) H 01/19/18 03:56 Lymphocytes # 2.3 thou/uL (1.20-3.40) 01/19/18 03:56 Monocytes # 0.7 thou/uL (0.11-0.59) H 01/19/18 03:56 Eosinophils # 0.1 thou/uL (0.0-0.7) 01/19/18 03:56 Basophils # 0.0 thou/uL (0.0-0.2) 01/19/18 03:56 Sodium 138 mmol/L (136-145) 01/20/18 04:53 Potassium 4.2 mmol/L (3.5-5.1) 01/20/18 04:53 Chloride 108 mmol/L (98-107) H 01/20/18 04:53 Carbon Dioxide 25 mmol/L (22-29) 01/20/18 04:53 Anion Gap 9 mmol/L (10-20) L 01/20/18 04:53 BUN 11 mg/dL (8.4-25.7) 01/20/18 04:53 Creatinine 1.14 mg/dL (0.6-1.3) 01/20/18 04:53 Estimated GFR (MDRD) 66 01/20/18 04:53 Glucose 124 mg/dL (70-105) H 01/20/18 04:53 POC Glucose 134 mg/dL (70-110) H 01/20/18 11:42 Lactic Acid 2.4 mmol/L (0.5-2.2) H 01/19/18 03:56 Calcium 7.9 mg/dL (7.8-10.44) 01/20/18 04:53 Magnesium 1.8 mg/dL (1.6-2.6) 01/20/18 04:53 Total Bilirubin 1.1 mg/dL (0.2-1.2) 01/19/18 03:56 AST 85 U/L (5-34) H 01/19/18 03:56 ALT 75 U/L (8-55) H 01/19/18 03:56 Alkaline Phosphatase 94 U/L (40-150) 01/19/18 03:56 Creatine Kinase 91 U/L (30-200) 01/18/18 16:30 CK-MB (CK-2) 1.6 ng/mL (0-6.6) 01/18/18 16:30 Troponin I 0.071 ng/mL (< 0.028) H 01/19/18 00:31 Serum Total Protein 7.0 g/dL (6.0-8.3) 01/19/18 03:56 Albumin 3.7 g/dL (3.5-5.0) 01/19/18 03:56 Globulin 3.3 g/dL (2.4-3.5) 01/19/18 03:56 Albumin/Globulin Ratio 1.1 g/dL (1.2-2.2) L 01/19/18 03:56 Lipase 27 U/L (8-78) 01/18/18 16:30 Urine Color YELLOW (Yellow) 01/18/18 21:09 Urine Clarity CLEAR (Clear) 01/18/18 21:09 Urine pH 5.5 (5.0-9.0) 01/18/18 21:09 Ur Specific [place] 1.034 (1.002-1.036) 01/18/18 21:09 Urine Protein Trace mg/dL (Neg-Trace) 01/18/18 21:09 Urine Glucose (UA) Negative mg/dL (Negative) 01/18/18 21:09 Urine Ketones Negative mg/dL (Negative) 01/18/18 21:09 Urine Blood Negative (Negative) 01/18/18 21:09 Urine Nitrite Negative (Negative) 01/18/18 21:09 Urine Bilirubin Negative (Negative) 01/18/18 21:09 Urine Urobilinogen 1.0 mg/dL (0.2-1.0) 01/18/18 21:09 Ur Leukocyte Esterase Negative (Negative) 01/18/18 21:09 Urine Creatinine 127.92 mg/dL (63-166) 01/18/18 21:09 Urine Sodium 42 mmol/L (Not Available) 01/18/18 21:09 Urine Opiates Screen Detected (NotDetected) H 01/18/18 21:09 Ur Oxycodone Screen Not Detected (NotDetected) 01/18/18 21:09 Urine Methadone Screen Not Detected (NotDetected) 01/18/18 21:09 Ur Propoxyphene Screen Not Detected (NotDetected) 01/18/18 21:09 Ur Barbiturates Screen Not Detected (NotDetected) 01/18/18 21:09 Ur Tricyclics Screen Not Detected (NotDetected) 01/18/18 21:09 Ur Phencyclidine Scrn Not Detected (NotDetected) 01/18/18 21:09 Ur Amphetamines Screen Not Detected (NotDetected) 01/18/18 21:09 U Methamphetamines Scrn Not Detected (NotDetected) 01/18/18 21:09 U Benzodiazepines Scrn Not Detected (NotDetected) 01/18/18 21:09 U Cocaine Metab Screen Not Detected (NotDetected) 01/18/18 21:09 U Cannabinoids Screen Not Detected (NotDetected) 01/18/18 21:09 Drug Screen Comment () 01/18/18 21:09 Syphilis IgG/IgM Ab Nonreactive (Nonreactive) 01/18/18 21:10 HIV 1&2 Antigen & Ab NonReactive (NonReactive) 01/18/18 21:10 - Radiology Interpretation Chest x-ray Status: report reviewed by me (NAD) CT scan - abdomen Status: report reviewed by me (Marked distension of gallbladder) US - abdomen Status: report reviewed by me (Hepatic steatosis. Dilated common duct. Biliary sludge. Negative sonographic Yousif's.)
[2018-01-20] MEDS: Atorvastatin Calcium 40 MG TAB PO SCH (21:35)
[2018-01-20] MEDS: Lisinopril 5 MG TAB PO SCH (21:36)
[2018-01-21] MEDS: Morphine 5 MG/ML SYRINGE SLOW IVP PRN ×2 (00:03→07:54)
[2018-01-21] MEDS ORDERED: hydrALAZINE 20 MG/ML VIAL SLOW IVP SCH (00:45)
[2018-01-21] MEDS: Piperacillin/Tazobactam 3.375 GM in Sodium Chloride 0.9% 100 ML IVPB SCH ×4 (03:29→20:08)
[2018-01-21] MEDS: Sodium Chloride 0.9% 1,000 ML IV SCH ×3 (04:18→19:10)
[2018-01-21 06:07] LABS: ALT (SGPT) 50 U/L (8-55); AST (SGOT) 53 U/L (5-34); Albumin 3.7 g/dL (3.5-5.0); Alkaline Phosphatase 88 U/L (40-150); Anion Gap 11 mmol/L (10-20); BUN (Urea Nitrogen) 7 mg/dL (8.4-25.7); Calc. Creatinine Clearance 108 mL/min (70-130); Calcium 8.5 mg/dL (7.8-10.44); Carbon Dioxide 26 mmol/L (22-29); Chloride 105 mmol/L (98-107); Estimated GFR-MDRD 75; Globulin 3.5 g/dL (2.4-3.5); Glucose 124 mg/dL (70-105); Potassium 3.5 mmol/L (3.5-5.1); Protein, Total 7.2 g/dL (6.0-8.3); Sodium 138 mmol/L (136-145)
[2018-01-21] MEDS ORDERED: hydrALAZINE 20 MG/ML VIAL SLOW IVP PRN (06:30)
--- NOTE | 2018-01-21 06:33 | PDOC.FM ---
- Subjective Subjective: Pt seen at bedside in [facility] overnight. Pt states abd pain is about the same but he is asking for a diet. Pt denies CP, SOB, NVD. - Objective MAR Reviewed: Yes Vital Signs & Weight: Vital Signs (12 hours) Temp Pulse Resp BP BP Pulse Ox 01/21/18 03:32 98.1 F 86 18 177/86 H 94 L 01/21/18 00:38 71 187/91 H 01/21/18 00:00 98.8 F 75 16 188/88 H 95 01/20/18 21:36 71 187/91 H 01/20/18 20:00 98.6 F 74 18 187/91 H 94 L Weight Weight 97.885 kg I&O: 01/19/18 01/20/18 01/21/18 06:59 06:59 06:59 Intake Total 799 2170 2700 Output Total 250 1780 825 Balance 874 647 1198 Result Diagrams: 01/19/18 03:56 01/21/18 05:05 <Arnie Birmingham - Last Filed: 01/21/18 09:43> - Objective Vital Signs & Weight: Vital Signs (12 hours) Temp Pulse Resp BP BP Pulse Ox 01/21/18 08:00 98.3 F 74 17 177/90 H 94 L 01/21/18 07:47 86 177/90 H 01/21/18 07:46 86 177/90 H 01/21/18 03:32 98.1 F 86 18 177/86 H 94 L 01/21/18 00:38 71 187/91 H 01/21/18 00:00 98.8 F 75 16 188/88 H 95 Weight Weight 97.885 kg I&O: 01/20/18 01/21/18 01/22/18 06:59 06:59 06:59 Intake Total 2170 4950 Output Total 1780 2805 Balance 390 2145 Result Diagrams: 01/19/18 03:56 01/21/18 05:05 <Syeda Aguilera - Last Filed: 01/21/18 10:50> Phys Exam - Physical Examination obese HEENT: PERRLA Respiratory: no wheezing, clear to auscultation bilateral Cardiovascular: RRR, no significant murmur Gastrointestinal: positive bowel sounds mildly TTP diffusely, no rebound Neurological: moves all 4 limbs Psychiatric: normal affect, A&O x 3 <Arnie Birmingham M - Last Filed: 01/21/18 09:43> Dx/Plan (1) Sepsis due to other etiology Code(s): A41.89 - OTHER SPECIFIED SEPSIS Status: Acute Plan: -pt presented with multiple complaints but namely abd pain, diarrhea, and chills -initial concern for acute abd ruled out, general surgery recommendations greatly appreciated -RUQ US showed dilated GB with some sludge but no evidence of acute cholecystitis -pt had tachycardia, mild tachypnea, leukocytosis and likely GI source, meeting criteria for sepsis -multiple stool studies negative -continue empiric zosyn at this time -continue IVF -HIDA scan 01/19 wnl -cardiology consulted by GS for surgical clearance, recs greatly appreciated -TTE shows normal EF but evidence of diastolic dysfunction -per nursing, pt to go for lab kandace today (2) Diastasis of rectus abdominis Code(s): M62.08 - SEPARATION OF MUSCLE (NONTRAUMATIC), OTHER SITE Status: Acute Plan: -general surgery recs greatly appreciated (3) BPH (benign prostatic hyperplasia) Code(s): N40.0 - BENIGN PROSTATIC HYPERPLASIA WITHOUT LOWER URINRY TRACT SYMP Status: Acute QualifierTitle: Lower urinary tract symptom presence: symptoms present Lower urinary tract symptom detail: straining on urination Qualified Code(s): N40.1 - Benign prostatic hyperplasia with lower urinary tract symptoms; R39.16 - Straining to void; R39.16 - Straining to void Plan: -pt with hx of BPH and sees urology, Dr. Eason outpatient -per reports, pt had unspecified procedure scheduled -will coordinate care with urology and determine if procedure needs to be done inpatient (4) Lactic acidosis Code(s): E87.2 - ACIDOSIS Status: Resolved Plan: -likely 2/2 above, continue to trend with IVF and abx -normalized (5) JAZMYN (acute kidney injury) Code(s): N17.9 - ACUTE KIDNEY FAILURE, UNSPECIFIED Status: Acute Plan: -likely 2/2 hypovolemia due to diarrhea -improving, cont to monitor (6) DMII (diabetes mellitus, type 2) Status: Chronic Plan: -hold home meds -accuchecks and SSI (7) HTN (hypertension) Code(s): I10 - ESSENTIAL (PRIMARY) HYPERTENSION Status: Chronic Plan: -at goal, continue to monitor (8) Hepatic steatosis Code(s): K76.0 - FATTY (CHANGE OF) LIVER, NOT ELSEWHERE CLASSIFIED Status: Chronic Plan: -hx of hepatic steatosis -LFTs at baseline - Plan Plan: dispo: Pt doing well. Pt to go for lap kandace today per nursing team. Specialist recs greatly appreciated, continue to monitor. <Arnie Birmingham - Last Filed: 01/21/18 09:43> Attending Addendum - Attending Addendum Date/Time: 01/21/18 1048 I personally evaluated the patient and discussed the management with Dr. Birmingham I agree with the History, Examination, Assessment and Plan documented above with any addition or exceptions noted below. Acalculous cholecystitis-Patient to go for lap kandace today. Appreciate surgical recs. HTN- mildly elevated. Continue home meds. DM- home meds BPH- will have outpatient surgical intervention with urology. <Syeda Aguilera - Last Filed: 01/21/18 10:50>
[2018-01-21] MEDS ORDERED: Lidocaine 1% PF 5 ML VIAL ONE (07:22)
[2018-01-21] MEDS ORDERED: Propofol 200 MG/20 ML VIAL ONE (07:22)
[2018-01-21] MEDS ORDERED: ePHEDrine/0.9% NaCl/PF SYRINGE 50 mg/10 ml ONE (07:22)
[2018-01-21] MEDS ORDERED: PHENYLEPHRINE-NS 100 MCG/ML 10 ML SYRINGE ONE (07:22)
[2018-01-21] MEDS: Lisinopril 5 MG TAB PO SCH (07:46)
[2018-01-21] MEDS: Amlodipine 10 MG TAB PO SCH (07:47)
[2018-01-21] MEDS ORDERED: Lisinopril 5 MG TAB PO SCH (08:21)
[2018-01-21] MEDS ORDERED: Bupivacaine HCl 0.5%/Epinephrine 1:200,000/PF 30 ml Vial ONE (11:46)
[2018-01-21] MEDS ORDERED: Iothalamate Meglumine 60% 50 ML VIAL FS ONE (11:46)
[2018-01-21] MEDS ORDERED: Fentanyl 250 MCG/5 ML VIAL ONE (12:07)
[2018-01-21] MEDS ORDERED: Midazolam HCl 2 mg/2 ml Vial ONE (12:07)
--- NOTE | 2018-01-21 14:26 | PDOC.OP ---
Operative Note - Operative Note Operative Note: PROCEDURE: Laparoscopic cholecystectomy with intraoperative cholangiogram and repair of umbilical hernia, liver biopsy SURGEON: Neeraj Hicks M.D. DATE OF PROCEDURE: 01/21/2018 PREOPERATIVE DIAGNOSIS: Chronic cholecystitis, possible choledocholithiasis, umbilical hernia POSTOPERATIVE DIAGNOSIS: Chronic cholecystitis, early cirrhosis, umbilical hernia HISTORY: Patient is a 62-year-old man with chronic intermittent right upper quadrant pain. Previous ultrasound and CT were negative and EGD was unremarkable but his pain persisted. He was admitted with generalized abdominal pain and diarrhea which have resolved but was noted on admission to have sludge on gallbladder ultrasound and mildly elevated LFTs. After cardiac clearance, laparoscopic cholecystectomy with intraoperative cholangiogram was recommended. He has a small reducible umbilical hernia for which repair under the same anesthesia was recommended. FINDINGS: Stiff cirrhotic-appearing liver with chronically distended gallbladder with minimal omental adhesions. Cholangiogram revealed a mildly dilated common bile duct but no obstruction to flow and no filling defects. Small umbilical hernia containing preperitoneal fat only. PROCEDURE IN DETAIL: After informed consent was obtained and appropriate preoperative antibiotics were administered, the patient was taken to the operating room and placed in the supine position and general endotracheal anesthesia was administered. The stomach was decompressed with an OG tube and the abdomen was prepped and draped in standard sterile fashion. Local anesthesia was infused to the skin and subcutaneous tissues at the umbilical level. A transverse skin incision was made. The fascia was elevated and dissection was carried down to the fascia. The umbilical hernia was identified and dissected free circumferentially. The fat herniating through the defect was dissected and the peritoneum identified and opened. There was no true hernia sac and the fatty tissue. Treating through the fascial defect was just preperitoneal fat. A trocar was placed into the abdominal cavity and carbon dioxide insufflated.. Opening pressure was less than 5 and carbon dioxide gas easily insufflated to an intra-abdominal pressure of 15, which the patient tolerated well. The abdominal cavity was carefully examined. There was no evidence of trocar injury, but the liver appeared nodular and cirrhotic. Local anesthesia was infused to the skin and subcutaneous tissues at the epigastric, right upper quadrant, and right lateral abdominal sites and trocars were placed under direct vision of the laparoscope. The fundus of the gallbladder was grasped and retracted superiorly. There were some omental adhesions which were taken down through their avascular plane. The gallbladder was very dilated but soft. The infundibulum was grasped and retracted laterally. The serosa was stripped inferiorly at the level of the neck of the gallbladder exposing the cystic duct and artery which were traced clearly to their insertion in the gallbladder. These were dissected free circumferentially and the cystic duct was clipped at the level of the neck of the gallbladder. The cystic artery was clipped but not divided. An incision was made in the cystic duct inferior to the clip and the cystic duct was palpated with no stones palpable. Clear bile was seen to flow from the cystic duct incision. A cholangiogram catheter was introduced and placed into the cystic duct and secured with a clip. A cholangiogram was obtained which showed an adequate length of cystic duct. There was normal filling of the slightly dilated appearing common bile duct with free flow of contrast into the duodenum. There was normal retrograde flow into the common hepatic duct beyond the level of the bifurcation without filling defects. The cholangiogram catheter was removed and the cystic duct clipped below the incision in the cystic duct. The cystic duct was divided between these clips and the previously placed clip. The cystic artery was clipped and divided between the previously placed clips. The gallbladder was then dissected free of the gallbladder bed using hook electrocautery. Prior to complete removal of the gallbladder from the gallbladder bed, the area of the cystic duct and artery stumps was examined. The clips were in good position completely across these structures and there was no bleeding and no leakage of bile. The gallbladder was then placed into an EndoCatch bag and drawn out through the umbilical incision. The umbilical trocar was replaced and the operative site easily irrigated to clear. Scissors were used to do a wedge biopsy along the edge of the cirrhotic liver and this biopsy was removed with the stone forceps and sent for permanent pathology. The biopsy site was cauterized and hemostasis at the operative sites and the biopsy sites verified. The patient had some clot in the gallbladder bed but no visible bleeding area did was felt that he had some slow oozing due to his cirrhosis. Maya was applied to the gallbladder bed and biopsy site. The epigastric, right upper quadrant and right lateral abdominal trocars were removed and hemostasis verified. Carbon dioxide gas was allowed to desufflate through the umbilical trocar which was then removed. The fascial defect at the umbilicus was closed with interrupted 0 Vicryl sutures with excellent technical result. The skin incisions were closed with 4-0 subcuticular Monocryl sutures and Dermabond dressings were placed. Once the Dermabond was dry a pressure dressing was placed at the umbilicus. The patient was extubated and taken to the recovery room in good condition. There were no complications. ESTIMATED BLOOD LOSS: Minimal. SPECIMEN : Gallbladder and contents, liver biopsy.
[2018-01-21] MEDS: Oxybutynin ER 5 MG TAB PO SCH (17:16)
[2018-01-21] MEDS: Tamsulosin HCl 0.4 MG CAP PO SCH ×2 (17:17→20:08)
[2018-01-21] MEDS: Aspirin 81 mg Enteric Coated Tablet PO SCH (17:17)
[2018-01-21] MEDS: Lisinopril 10 MG TAB PO SCH ×2 (17:17→20:08)
[2018-01-21] MEDS: Famotidine/PF 20 mg/2ml Vial SLOW IVP SCH (17:20)
[2018-01-21] MEDS: Atorvastatin Calcium 40 MG TAB PO SCH (20:08)
--- NOTE | 2018-01-21 20:08 | RAD ---
INTRAOPERATIVE CHOLANGIOGRAM 01/21/18 HISTORY: Cholecystitis. FINDINGS/IMPRESSION: Intraoperative fluoroscopy was provided for cholangiogram as performed by Dr. Hicks. Spot fluorosco pic images show contrast opacification of a mildly distended common duct. Contrast passes into the du odenum. FLUORO TIME: 26 seconds. POS: [facility]
[2018-01-22] MEDS: Sodium Chloride 0.9% 1,000 ML IV SCH ×2 (02:06→07:59)
[2018-01-22] MEDS: Piperacillin/Tazobactam 3.375 GM in Sodium Chloride 0.9% 100 ML IVPB SCH ×4 (03:59→20:03)
[2018-01-22 05:48] LABS: Anion Gap 12 mmol/L (10-20); BUN (Urea Nitrogen) 10 mg/dL (8.4-25.7); Calc. Creatinine Clearance 109 mL/min (70-130); Calcium 8.6 mg/dL (7.8-10.44); Carbon Dioxide 23 mmol/L (22-29); Chloride 108 mmol/L (98-107); Estimated GFR-MDRD 76; Glucose 153 mg/dL (70-105); Potassium 4.1 mmol/L (3.5-5.1); Sodium 139 mmol/L (136-145)
--- NOTE | 2018-01-22 06:49 | PDOC.FM ---
- Subjective Subjective: Pt seen at bedside in mild distress due to abdominal discomfort. Pt states he is a little sore after surgery. Pt tolerating PO intake, denies fevers/chills, CP, NVD. - Objective MAR Reviewed: Yes Vital Signs & Weight: Vital Signs (12 hours) Temp Pulse Resp BP BP Pulse Ox 01/22/18 04:00 98.8 F 80 20 163/76 H 94 L 01/22/18 00:00 99.3 F 82 18 170/81 H 95 01/21/18 20:08 165/78 H 01/21/18 20:05 99.2 F 85 20 165/78 H 94 L 01/21/18 20:00 99.2 F 85 20 94 L Weight Weight 97.885 kg I&O: 01/20/18 01/21/18 01/22/18 06:59 06:59 06:59 Intake Total 2170 4950 1190 Output Total 1780 2805 750 Balance 390 2145 440 Result Diagrams: 01/19/18 03:56 01/22/18 05:13 <Arnie Birmingham - Last Filed: 01/22/18 11:22> - Objective Vital Signs & Weight: Vital Signs (12 hours) Temp Pulse Resp BP BP Pulse Ox 01/22/18 11:11 98.3 F 84 17 151/76 H 95 01/22/18 11:08 151/76 H 01/22/18 08:00 97.0 F L 83 18 154/81 H 95 01/22/18 07:59 80 154/81 H 01/22/18 07:58 154/81 H 01/22/18 04:00 98.8 F 80 20 163/76 H 94 L Weight Weight 95.3 kg I&O: 01/21/18 01/22/18 01/23/18 06:59 06:59 06:59 Intake Total 4950 3090 480 Output Total 2805 2300 Balance 2145 790 480 Result Diagrams: 01/19/18 03:56 01/22/18 05:13 <Syeda Aguilera - Last Filed: 01/22/18 14:54> Phys Exam - Physical Examination mild abd discomfort HEENT: PERRLA Respiratory: no wheezing, clear to auscultation bilateral Cardiovascular: RRR, no significant murmur Gastrointestinal: soft, positive bowel sounds diffuse TTP, voluntary guarding, no rebound, no fluid wave Musculoskeletal: pulses present Neurological: moves all 4 limbs Psychiatric: normal affect, A&O x 3 Skin: cap refill <2 seconds <Arnie Birmingham - Last Filed: 01/22/18 11:22> Dx/Plan (1) Sepsis due to other etiology Code(s): A41.89 - OTHER SPECIFIED SEPSIS Status: Acute Plan: -pt presented with multiple complaints but namely abd pain, diarrhea, and chills -initial concern for acute abd ruled out, general surgery recommendations greatly appreciated -RUQ US showed dilated GB with some sludge but no evidence of acute cholecystitis -pt had tachycardia, mild tachypnea, leukocytosis and likely GI source, meeting criteria for sepsis -multiple stool studies negative -continue empiric zosyn at this time -continue IVF -HIDA scan 01/19 wnl -cardiology consulted by GS for surgical clearance, recs greatly appreciated -TTE shows normal EF but evidence of diastolic dysfunction -on 01/21 pt went for lap kandace, hernia repair, and liver biopsy due to cirrhotic appearing liver (2) Diastasis of rectus abdominis Code(s): M62.08 - SEPARATION OF MUSCLE (NONTRAUMATIC), OTHER SITE Status: Acute Plan: -general surgery recs greatly appreciated (3) BPH (benign prostatic hyperplasia) Code(s): N40.0 - BENIGN PROSTATIC HYPERPLASIA WITHOUT LOWER URINRY TRACT SYMP Status: Acute QualifierTitle: Lower urinary tract symptom presence: symptoms present Lower urinary tract symptom detail: straining on urination Qualified Code(s): N40.1 - Benign prostatic hyperplasia with lower urinary tract symptoms; R39.16 - Straining to void; R39.16 - Straining to void Plan: -pt with hx of BPH and sees urology, Dr. Eason outpatient -per reports, pt had unspecified procedure scheduled -urology to f/u outpatient (4) Lactic acidosis Code(s): E87.2 - ACIDOSIS Status: Resolved Plan: -likely 2/2 above, continue to trend with IVF and abx -normalized (5) JAZMYN (acute kidney injury) Code(s): N17.9 - ACUTE KIDNEY FAILURE, UNSPECIFIED Status: Resolved Plan: -resolved (6) DMII (diabetes mellitus, type 2) Status: Chronic Plan: -hold home meds -accuchecks and SSI (7) HTN (hypertension) Code(s): I10 - ESSENTIAL (PRIMARY) HYPERTENSION Status: Chronic Plan: -uncontrolled -pt on lisinopril, amlodipine, and hydralazine PRN -will increase lisinopril to 40 mg daily (8) Hepatic steatosis Code(s): K76.0 - FATTY (CHANGE OF) LIVER, NOT ELSEWHERE CLASSIFIED Status: Chronic Plan: -hx of hepatic steatosis -LFTs at baseline - Plan Plan: dispo: Pt stable, tolerated procedure well yesterday. General surgery recs and dispo greatly appreciated. Continue to monitor. <Arnie Birmingham - Last Filed: 01/22/18 11:22> Attending Addendum - Attending Addendum Date/Time: 01/22/18 0830 I personally evaluated the patient and discussed the management with Dr. Birmingham I agree with the History, Examination, Assessment and Plan documented above with any addition or exceptions noted below. Abd: obese, soft, mod ttp diffusely. no rebound. Inc: c/d/i pod#1 s/p lap kandace, liver biopsy and unbilical hernia repair- appreciate surg recs for d/c plan Hepatic steatosis- recommend weight loss HTN- increase SOLOMON Inh DM- home meds on d/c. -medically stable for d/c once cleared by surgery. <Syeda Aguilera - Last Filed: 01/22/18 14:54>
[2018-01-22] MEDS: Morphine 5 MG/ML SYRINGE SLOW IVP PRN ×2 (07:56→20:04)
[2018-01-22] MEDS: Aspirin 81 mg Enteric Coated Tablet PO SCH (07:58)
[2018-01-22] MEDS: Tamsulosin HCl 0.4 MG CAP PO SCH ×2 (07:58→20:02)
[2018-01-22] MEDS: Lisinopril 10 MG TAB PO SCH (07:58)
[2018-01-22] MEDS: Amlodipine 10 MG TAB PO SCH (07:59)
[2018-01-22] MEDS ORDERED: Chlorthalidone 25 MG TAB PO SCH (09:00)
[2018-01-22] MEDS ORDERED: Lisinopril 10 MG TAB PO SCH ×2 (09:30→10:00)
[2018-01-22] MEDS ORDERED: Lisinopril 20 MG TAB PO SCH (09:45)
[2018-01-22] MEDS: Oxybutynin ER 5 MG TAB PO SCH (11:07)
[2018-01-22 16:47] LABS: Hep C IgG Ab Non-Reactive (NonReactive); Hep C Index 0.13 S/CO (0-0.79)
[2018-01-22] MEDS: Atorvastatin Calcium 40 MG TAB PO SCH (20:02)
[2018-01-22] MEDS: Lisinopril 20 MG TAB PO SCH (20:02)
[2018-01-23] MEDS: Piperacillin/Tazobactam 3.375 GM in Sodium Chloride 0.9% 100 ML IVPB SCH ×2 (03:37→08:28)
--- NOTE | 2018-01-23 06:36 | PDOC.FM ---
- Subjective Subjective: Patient is resting comfortably this morning. He is feeling hungry and ready to eat. He has been up and going to the bathroom without trouble. Denies N/V/ abdominal pain. No acute events overnight. - Objective MAR Reviewed: Yes Vital Signs & Weight: Vital Signs (12 hours) Temp Pulse Resp BP BP Pulse Ox 01/23/18 04:00 98.8 F 92 18 153/78 H 96 01/23/18 00:00 98.8 F 91 18 145/76 H 96 01/22/18 20:02 146/82 H 01/22/18 20:00 98.6 F 86 16 146/82 H 98 Weight Weight 95.3 kg I&O: 01/21/18 01/22/18 01/23/18 06:59 06:59 06:59 Intake Total 4950 3090 1880 Output Total 2805 2300 950 Balance 2145 790 930 Result Diagrams: 01/19/18 03:56 01/22/18 05:13 <Susan Mendosa - Last Filed: 01/23/18 11:12> - Objective Vital Signs & Weight: Vital Signs (12 hours) Temp Pulse Resp BP BP BP Pulse Ox 01/23/18 08:30 146/82 H 01/23/18 08:29 95 01/23/18 07:32 99.1 F 95 18 115/72 95 01/23/18 07:06 98.8 F 92 18 01/23/18 04:00 98.8 F 92 18 153/78 H 96 01/23/18 00:00 98.8 F 91 18 145/76 H 96 Weight Weight 95.3 kg I&O: 01/22/18 01/23/18 01/24/18 06:59 06:59 06:59 Intake Total 3090 1880 Output Total 2300 950 Balance 790 930 Result Diagrams: 01/19/18 03:56 01/22/18 05:13 <Luis Baron - Last Filed: 01/23/18 11:47> Phys Exam - Physical Examination Constitutional: NAD HEENT: PERRLA, moist MMs, sclera anicteric Respiratory: no wheezing, no rales, clear to auscultation bilateral Cardiovascular: RRR, no significant murmur Gastrointestinal: soft, positive bowel sounds distended, mildly tender to palpation worse in RUQ, Musculoskeletal: no edema, pulses present Neurological: moves all 4 limbs <Susan Mendosa - Last Filed: 01/23/18 11:12> Dx/Plan (1) BPH (benign prostatic hyperplasia) Code(s): N40.0 - BENIGN PROSTATIC HYPERPLASIA WITHOUT LOWER URINRY TRACT SYMP Status: Acute QualifierTitle: Lower urinary tract symptom presence: symptoms present Lower urinary tract symptom detail: straining on urination Qualified Code(s): N40.1 - Benign prostatic hyperplasia with lower urinary tract symptoms; R39.16 - Straining to void; R39.16 - Straining to void (2) Diastasis of rectus abdominis Code(s): M62.08 - SEPARATION OF MUSCLE (NONTRAUMATIC), OTHER SITE Status: Acute (3) Sepsis due to other etiology Code(s): A41.89 - OTHER SPECIFIED SEPSIS Status: Acute (4) DMII (diabetes mellitus, type 2) Status: Chronic (5) HTN (hypertension) Code(s): I10 - ESSENTIAL (PRIMARY) HYPERTENSION Status: Chronic (6) Hepatic steatosis Code(s): K76.0 - FATTY (CHANGE OF) LIVER, NOT ELSEWHERE CLASSIFIED Status: Chronic - Plan Plan: Sepsis 2/2 cholecystitis -pt presented with multiple complaints but namely abd pain, diarrhea, and chills -initial concern for acute abd ruled out, but abnormally large GB on RUQ u/s on 01/21 pt went for lap kandace, hernia repair, and liver biopsy due to cirrhotic appearing liver, found enlarged gallbladder with histopathologic evidence of chronic cholecystitis and liver biopsy with steatohepatitis and cirrhosis -pt had tachycardia, mild tachypnea, leukocytosis and likely GI source, meeting criteria for sepsis, was treated with 5 day course of Zosyn -multiple stool studies negative Diastasis Rectis Abdominus - patient s/p hernia repair -general surgery recs greatly appreciated Diastolic CHF -cardiology consulted for surgical clearance and recommended TTE which showed normal EF but evidence of diastolic dysfunction -asymptomatic at this point, f/u outpatient BPH -pt with hx of BPH and sees urology, Dr. Eason outpatient -per reports, pt had unspecified procedure scheduled -urology to f/u outpatient Lactic Acidosis, resovled -likely 2/2 above, continue to trend with IVF and abx -normalized JAZMYN, resolved -resolved DM2 -hold home meds -accuchecks and SSI -sugars wnl HTN -uncontrolled -pt on lisinopril, amlodipine, and hydralazine PRN -increased lisinopril to 40 mg daily yesterday, new dose has not begun. Hepatic Steatosis -hx of hepatic steatosis -LFTs at baseline Dispo: Likely d/c home today with followup. <Susan Mendosa - Last Filed: 01/23/18 11:12> Attending Addendum - Attending Addendum Date/Time: 01/23/18 9452 I personally evaluated the patient and discussed the management with Dr. Mendosa. I agree with the History, Examination, Assessment and Plan documented above with any addition or exceptions noted below. Patient doing well today after lap kandace. Reports no abdominal pain and good pain control. Will start on Vit E for BAUTISTA and advised outpatient GI follow up. Discharge later today. <Luis Baron - Last Filed: 01/23/18 11:47>
[2018-01-23 07:33] VITALS: TEMP 99.1
[2018-01-23] MEDS: Oxybutynin ER 5 MG TAB PO SCH (08:29)
[2018-01-23] MEDS: Amlodipine 10 MG TAB PO SCH (08:29)
[2018-01-23] MEDS: Lisinopril 20 MG TAB PO SCH (08:30)
[2018-01-23] MEDS: Aspirin 81 mg Enteric Coated Tablet PO SCH (08:30)
[2018-01-23] MEDS: Tamsulosin HCl 0.4 MG CAP PO SCH (08:30)
[2018-01-23 08:32] VITALS: BP 146/82
[2018-01-23] MEDS: Morphine 5 MG/ML SYRINGE SLOW IVP PRN (08:33)
[2018-01-23] MEDS ORDERED: HYDROcodone/Acetaminophen 7.5/325 mg Tablet PO PRN ×2 (10:22)
--- NOTE | 2018-01-23 10:57 | PRG ---
DATE OF SERVICE: 01/23/2018 SUBJECTIVE: Mr. Chase is feeling fine today. He states that his pain is controlled on pain medi cation. Yesterday, he had told me that he was getting pain pills, but his nurse informs me that he h as been asking for morphine. Vital signs are normal. His incisions are clean, dry, and intact and h e has appropriate minimal sofya-incisional tenderness. Electrolytes are unremarkable. His pathology has already come back and showed chronic cholecystitis and steatohepatitis with cirrhosis as anticipa jesus. ASSESSMENT: Status post laparoscopic cholecystectomy, doing well. Apparently, his other gastrointes tinal symptoms have resolved also. From my standpoint, he is ready for discharge. He can follow up with me in the clinic for followup in 2 weeks' time at which point I will refer him to Gastroenterolo gy for establishment of care for cirrhosis. His hepatitis C antibodies are negative, but his hepatit is B results have not yet come back. Patient was advised to refrain from heavy lifting for 2 weeks' time. He can remove the dressing at his umbilicus tomorrow or the next day, but is to leave the Derm abond in place.
--- NOTE | 2018-01-23 13:23 | EKG ---
Test Reason : Blood Pressure : / mmHG Vent. Rate : 116 BPM Atrial Rate : 116 BPM P-R Int : 134 ms QRS Dur : 070 ms QT Int : 336 ms P-R-T Axes : 032 -07 059 degrees QTc Int : 467 ms Sinus tachycardia Otherwise normal ECG Confirmed by CADEN HARDING ([id number]), editorial director RONNA TAPIA ([id number]) on 01/23/2018 1:23:02 PM Referred By: Confirmed By:CADEN HARDING
--- NOTE | 2018-01-25 11:00 | DIS-2 ---
DATE OF ADMISSION: 01/18/2018 DATE OF DISCHARGE: 01/23/2018 RESIDENT: Susan Mendosa D.O. ADMITTING ATTENDING: Esequiel Qureshi M.D. DISCHARGE ATTENDING: Luis Baron M.D. CONSULTATIONS 1. Dr. Krystin Eason, Urology. 2. Dr. Eric Pearce, Cardiology. 3. Dr. Neeraj Hicks, General Surgery. PROCEDURES/IMAGIN. Chest x-ray, no acute cardiopulmonary abnormalities. 2. Abdomen and pelvis CT with marked distention of the gallbladder. 3. Abdominal ultrasound, which shows distention of the common bile duct and gallbladder suggestive o f chronic biliary obstruction as well as biliary sludge within the gallbladder and hepatosteatosis. 4. Echocardiogram reports ejection fraction of 50% to 55% and reversed E/A ratio compatible with quang stolic dysfunction. 5. Hepatobiliary nuclear scan, which showed no appreciable obstruction involving the common bile arlette t and visualization of the gallbladder, excluding cystic duct obstruction. 6. Cholangiogram intraoperative using fluoroscopy, which showed contrast opacification of mildly dis tended common duct and contrast passed into duodenum. 7. The patient had a laparoscopic cholecystectomy with intraoperative cholangiogram and repair of um bilical hernia as well as liver biopsy on 01/21/[address] Hicks. PRIMARY DIAGNOSES: 1. Chronic cholecystitis. 2. Umbilical hernia, repaired. 3. Sepsis secondary to cholecystitis, resolved. 4. Cirrhosis of liver biopsy. 5. Type 2 diabetes. 6. Hypertension. 7. Benign prostatic hyperplasia. SECONDARY DIAGNOSIS: Chronic low back pain. DISCHARGE MEDICATIONS: 1. Aspirin 81 mg p.o. daily. 2. Gabapentin 600 mg p.o. t.i.d. 3. Tizanidine 4 mg p.o. t.i.d. p.r.n. 4. Metformin 1000 mg p.o. b.i.d. 5. Oxybutynin 10 mg p.o. daily. 6. Meloxicam 15 mg p.o. daily. 7. Flomax 0.4 mg p.o. b.i.d. 8. Omeprazole 40 mg p.o. b.i.d. 9. Linzess 290 mcg p.o. daily. 10. Finasteride 5 mg p.o. daily. 11. Tramadol 50 mg p.o. q.4 hours p.r.n. 12. Vitamin E 400 units p.o. daily. 13. Lisinopril 20 mg p.o. b.i.d. 14. Marshall 7.5/325 mg 1 tab p.o. q.4 hours p.r.n. 15. Atorvastatin 40 mg p.o. at bedtime. 16. Amlodipine 10 mg p.o. daily. DISCONTINUED MEDICATIONS: None. HISTORY OF PRESENT ILLNESS AND HOSPITAL COURSE: The patient is a 62-year-old male, who initially pre sented with a 2-day history of diarrhea, nausea, sinus congestion, chills and shaking had been progre ssively worsening. He was found to meet sepsis criteria with tachycardia 102 and tachypnea at 22 and an elevated white blood cell count of 14,000 with an abdominal source suspected. An abdominal ultra sound was performed and found to have an enlarged gallbladder and distention of the common bile duct as well as hepatosteatosis. Abdomen and pelvis CT was performed and again mentioned marked distentio n of the gallbladder. A HIDA scan was performed and found no outlet obstruction. The patient with c hronic history of BPH. BPH treated with finasteride and tamsulosin as well as oxybutynin. I discuss ed with provider, Dr. Eason, an outpatient procedure, the [employer] laser vaporization of the prost ate. Unsure if this was attributing to abdominal pain etiology, although not likely. Consulted Dr. Eason and she agrees not likely source and will manage BPH with surgical intervention outpatient. Huamira Hicks, General Surgery, was consulted for possible cholecystectomy and Dr. Pearce for cardiac clearance for surgical management. The patient had an echo, which showed diastolic dysfunction, but was cleared by Cardiology for operation. Dr. Hicks took the patient back for laparoscopic cholecys tectomy on 01/21/2018 due to inability to control pain and likely chronic cholestasis. During the op eration cholangiogram was performed and again noted no evidence of common bile duct obstruction. Int raoperatively, Dr. Hicks noticed abnormal appearing liver and likely performed a liver biopsy showi ng cirrhosis and hepatosteatosis. Also, intraoperatively, the patient had an umbilical hernia with p reperitoneal fat only and this was repaired while under anesthesia as well. The patient was initiall y in lot of pain after procedure, although continued to decline and 2 days after surgery felt ready t o go home. In regard to the patient's chronic medical conditions, hypertension, and type 2 diabetes. The patien t was placed on sliding scale insulin during his stay, but restarted on metformin at discharge. Suga rs were within normal range during his stay. The patient's hypertension was not well controlled duri hospitalization, initially 187/91 and continued to be elevated. The patient's lisinopril was incr eased to 20 mg b.i.d. and amlodipine 10 mg was added to his once a day lisinopril. Blood pressure i mproved, the last recent one was 146/82, although a full dose of 40 mg lisinopril not likely to gain full effect as of yet. The patient has good followup at [facility]. We will continue [facility] blood pressure and titrating meds outpatient. The patient with new diagnosis of cirrhosis and hepatosteatosis, likely due to alcohol abuse. The forest jovel is followed by Dr. Marshall and we will continue following Dr. Marshall for new diagnosis of cirrho sis. Initial abnormal labs including lactic acid and white count down trended, vitals stabilized. The pat ient is afebrile. The patient discharged home in stable condition. DISCHARGE INSTRUCTIONS: 1. Location: Home. 2. Diet: Heart healthy ADA diet. 3. Activity: As tolerated. Refrain from heavy lifting with recent surgical incisions and hernia re pair. 4. Follow up with Dr. Hicks in [address] Eason. Keep current appointment, and Dr. Marshall f or new diagnosis of cirrhosis. Also follow up with PCP at [facility] in 1-2 weeks for bloo d pressure management.
[2018-01-25 15:27] LABS: Hep B Surface AG-Rflx Sendout Negative (Negative); Hepatitis B Core IgM AB Negative (Negative); Hepatitis B Core Total Negative (Negative); Hepatitis B Surface AB-Sendout Non Reactive (.)
== END 2018-01-23 12:20 | disposition home or self-care (01) | DRG 854 ==
LOC: ERS 16:24 → 2SW 22:55 → OBSVTOIN 22:55 → 2NO 01-19 13:43 → T4-B 01-22 17:20
PROVIDERS: ADMIT Emergency Medicine; ATTEND Emergency Medicine
PROC: 0FT44ZZ Resection of Gallbladder, Percutaneous Endoscopic Approach (ICD-10-PCS; principal; 2018-01-21)
PROC: 0FB04ZX Excision of Liver, Percutaneous Endoscopic Approach, Diagnostic (ICD-10-PCS; 2018-01-21)
PROC: 0WQF0ZZ Repair Abdominal Wall, Open Approach (ICD-10-PCS; 2018-01-21)
PROC: BF10YZZ Fluoroscopy of Bile Ducts using Other Contrast (ICD-10-PCS; 2018-01-21)
DX: A41.9 Sepsis, unspecified organism (principal); E87.2 Acidosis; N17.9 Acute kidney failure, unspecified; E11.22 Type 2 diabetes mellitus with diabetic chronic kidney disease; K81.1 Chronic cholecystitis; G89.29 Other chronic pain; M54.5 Low back pain; I12.9 Hypertensive chronic kidney disease with stage 1 through stage 4 chronic kidney disease, or unspecified chronic kidney disease; N18.2 Chronic kidney disease, stage 2 (mild); K21.9 Gastro-esophageal reflux disease without esophagitis; N40.0 Benign prostatic hyperplasia without lower urinary tract symptoms; E78.5 Hyperlipidemia, unspecified; E66.9 Obesity, unspecified; K75.81 Nonalcoholic steatohepatitis (NASH); K74.60 Unspecified cirrhosis of liver; K42.9 Umbilical hernia without obstruction or gangrene; J45.909 Unspecified asthma, uncomplicated; Z68.32 Body mass index [BMI] 32.0-32.9, adult; Z87.891 Personal history of nicotine dependence; Z88.5 Allergy status to narcotic agent; Z79.84 Long term (current) use of oral hypoglycemic drugs; Z79.82 Long term (current) use of aspirin; Z79.899 Other long term (current) drug therapy; Z96.641 Presence of right artificial hip joint
CPT/HCPCS: 36415; 36416; 47532; 71045; 74177; 76705; 78227; 80048; 80053; 80306; 81003; 82274; 82553; 82570; 83605; 83630; 83690; 83735; 84300; 84484; 85025; 86704; 86705; 86706; 86707; 86780; 86803; 87040; 87045; 87046; 87086; 87324; 87328; 87329; 87340; 87350; 87389; 87449; 87899; 88304; 88307; 88313; 90471; 90732; 93005; 93306; 94760; 96361; 96365; 96375; 96376; J2270; A4216; A9537; G0009; J0360; J0670; J2001; J2250; J2405; J2543; J2704; J3010; J3475; J7050; Q0162; Q9961; S0028

== ENCOUNTER 2018-02-11 19:43 | Inpatient (IN) | payer MEDICARE, MEDICAID ==
[2018-02-11 20:39] LABS: #Lymphocytes 0.9 thou/uL (1.20-3.40); #Monocytes 0.1 thou/uL (0.11-0.59); #Neutrophils 6.3 thou/uL (1.40-6.50); %Eosinophils 0.1 % (0.0-10.0); %Lymphocytes 12.4 % (21.0-51.0); %Monocytes 1.6 % (0.0-10.0); %Neutrophils 85.9 % (42.0-75.0); Hemoglobin 13.2 g/dL (14.0-18.0); Mean Corpuscular HGB CONC 32.5 g/dL (32.0-36.0); Mean Corpuscular Hemoglobin 29.1 pg (27.0-31.0); Mean Corpuscular Volume 89.7 fl (80.0-94.0); Mean Platelet Volume 6.6 fL (7.4-10.4); Platelet Count 202 thou/uL (130-400); RBC Distribution Width 14.4 % (11.5-14.5); Red Blood Cell (RBC) Count 4.52 mill/uL (4.70-6.10); White Blood Cell (WBC) Count 7.4 thou/uL (4.8-10.8)
[2018-02-11 20:59] LABS: ALT (SGPT) 91 U/L (8-55); AST (SGOT) 94 U/L (5-34); Albumin 4.5 g/dL (3.5-5.0); Alkaline Phosphatase 161 U/L (40-150); Anion Gap 15 mmol/L (10-20); BUN (Urea Nitrogen) 47 mg/dL (8.4-25.7); Bilirubin, Total 0.4 mg/dL (0.2-1.2); Calc. Creatinine Clearance 0 mL/min (70-130); Calcium 9.3 mg/dL (7.8-10.44); Carbon Dioxide 14 mmol/L (22-29); Chloride 115 mmol/L (98-107); Estimated GFR-MDRD 32; Globulin 4.6 g/dL (2.4-3.5); Glucose 137 mg/dL (70-105); Protein, Total 9.1 g/dL (6.0-8.3); Sodium 136 mmol/L (136-145)
[2018-02-11 21:07] LABS: Potassium 7.7 mmol/L (3.5-5.1)
[2018-02-11 22:12] LABS: Bilirubin Negative (Negative); Blood, Urine Negative (Negative); Clarity CLEAR (Clear); Glucose, Urine (Dipstick) Negative (Negative); Leukocyte Negative (Negative); Nitrite Negative (Negative); Protein, Urine (Dipstick) Negative (Neg-Trace); Specific Gravity, Urine 1.015 (1.002-1.036); Urobilinogen 0.2 mg/dL (0.2-1.0)
[2018-02-11] MEDS ORDERED: Dextrose 50% Abboject 50 ML SYRINGE ONE (22:13)
[2018-02-11] MEDS ORDERED: Insulin Regular 300 UNITS/3 ML VIAL ONE (22:13)
[2018-02-11] MEDS ORDERED: Calcium Gluc 4.6 MEQ/10 ML (100 MG/ML) ONE (22:13)
[2018-02-11] MEDS ORDERED: Sodium Bicarb 50 MEQ/50 ML Abboject 8.4% SYRINGE ONE (22:13)
[2018-02-11 22:18] LABS: INR-International Normal Ratio 1.2; PTT 36.3 SEC (22.9-36.1)
[2018-02-11] MEDS ORDERED: Albuterol Sulfate 2.5 mg/3 ml Neb ONE ×2 (22:26→23:02)
[2018-02-11 22:31] LABS: Magnesium 2.3 mg/dL (1.6-2.6)
[2018-02-11 22:36] LABS: Troponin I 0.011 ng/mL (< 0.028)
[2018-02-11 23:31] LABS: Anion Gap 15 mmol/L (10-20); BUN (Urea Nitrogen) 46 mg/dL (8.4-25.7); Calc. Creatinine Clearance 0 mL/min (70-130); Calcium 8.8 mg/dL (7.8-10.44); Carbon Dioxide 13 mmol/L (22-29); Chloride 115 mmol/L (98-107); Estimated GFR-MDRD 37; Glucose 226 mg/dL (70-105); Sodium 136 mmol/L (136-145)
[2018-02-11 23:39] LABS: Potassium 7.3 mmol/L (3.5-5.1)
--- NOTE | 2018-02-12 00:21 | PDOC.FPRHP ---
- History of Present Illness Chief Complaint: weakness and diarrhea History of Present Illness: 62 yo male with cirrhosis, dm type 2, htn, and hld presents with a 3 day hx of diarrhea, that he describes as watery. He also endorses weakness that started as left arm weakness that is now diffuse and chills. He endorses some nausea but no vomiting and worsening shortness of breath especially when he lies down. ED Course: He was given 2 rounds of: calcium gluconate, sodium bicarb, 10U Novolin, 1am of D50, a breathing treatment of albuterol, and kayexylate - Allergies/Adverse Reactions Allergies Allergy/AdvReac Type Severity Reaction Status Date / Time oxycodone HCl Allergy Verified 09/30/15 18:22 [From OxyContin] - Home Medications Medication Instructions Recorded Confirmed Type Finasteride 5 mg PO DAILY 01/18/18 01/18/18 History Gabapentin [Gralise] 600 mg PO TID 01/18/18 01/19/18 History Linaclotide [Linzess] 290 mcg PO DAILY-AC 01/18/18 01/18/18 History Meloxicam [Mobic] 15 mg PO DAILY 01/18/18 01/18/18 History Omeprazole 40 mg PO BID 01/18/18 01/18/18 History Oxybutynin Chloride [Ditropan XL] 10 mg PO DAILY 01/18/18 01/18/18 History Tamsulosin HCl [Flomax] 0.4 mg PO BID 01/18/18 01/18/18 History metFORMIN HCl [Metformin HCl] 1,000 mg PO BID 01/18/18 01/18/18 History Aspirin [Ecotrin Low Strength] 81 mg PO DAILY 01/19/18 01/19/18 History tiZANidine HCl [Zanaflex] 4 mg PO TID PRN 01/19/18 01/19/18 History Amlodipine [Norvasc] 10 mg PO DAILY #30 tab 01/23/18 Rx Atorvastatin Calcium [Lipitor] 40 mg PO HS #30 tab 01/23/18 Rx HYDROcodone/Acetaminophen [[place] 1 each PO Q4H PRN #20 tablet 01/23/18 Rx 7.5-325 Tablet] Lisinopril [Zestril] 20 mg PO BID #60 tab 01/23/18 Rx Vitamin E 400 unit PO DAILY #120 capsule 01/23/18 Rx traMADol HCl [Tramadol HCl] 50 mg PO Q4H PRN #20 tablet 01/23/18 Rx - History PMHx:Cirrhosis, KAREEN, S/p acalculous cholecystitis, GED, s/p ventral hernia repair, HLD, DM2, HTN, dCHF, asthma PSHx: cholecystectomy, hernia repair FHx:none Social: denies tobacco, alcohol, drug use. - Review of Systems General: reports: fever/chills, fatigue. denies: weight/appetite/sleep changes , night sweats Eyes: reports: vision changes (watery eyes). denies: eye pain ENT: denies: nasal congestion, rhinorrhea Respiratory: reports: shortness of breath. denies: cough, congestion Cardiovascular: reports: orthopnea. denies: chest pain, palpitation, edema Gastrointestinal: reports: nausea, diarrhea, abdominal pain (diffuse). denies: vomiting Genitourinary: denies: incontinence, dysuria Skin: denies: rashes, lesions, jaundice, itching Musculoskeletal: denies: pain, tenderness, stiffness Neurological: denies: numbness, syncope, seizure Psychological: denies: anxiety, depression - Vital signs BP: 137/71 HR: 90 RR: 16 Tmax: 98 Pox: 99% on RA Wt: 93kg - Physical Exam Constitutional: NAD, awake, alert and oriented, well developed HEENT: normocephalic and atraumatic, PERRLA, EOMI, conjunctiva clear, no scleral icterus, normal nasal mucosa, MMM, other (erythematous right ear canal; no pus or bulging membrane) Neck: supple, no LAD, no JVD, no thyromegaly Heart: RRR, normal S1/S2, no murmurs/rubs/gallops, pulses present, no edema Lungs: CTAB, no respiratory distress, good air movement, no rales/rhonchi, no wheezing Abdomen: soft, other (diffusely mildly tender to palpation; grossly distended) Musculoskeletal: normal structure, normal tone Neurological: no focal deficit, CN II-XII intact, normal sensation, other ( decreased patellar reflex) Skin: no rash/lesions, good turgor, capillary refill <2 seconds, no jaundice Heme/Lymphatic: no unusual bruising or bleeding, no purpura, no petechia Psychiatric: normal mood and affect, good judgment and insight FMR H&P: Results - Labs Result Diagrams: 02/11/18 20:31 02/11/18 23:06 Lab results: WBC 7.4 thou/uL (4.8-10.8) 02/11/18 20:31 Hgb 13.2 g/dL (14.0-18.0) L 02/11/18 20: Hct 40.6 % (42.0-52.0) L 02/11/18 20: MCV 89.7 fl (80.0-94.0) 02/11/18 20: Plt Count 202 thou/uL (130-400) 02/11/18 20: Neutrophils % 85.9 % (42.0-75.0) H 02/11/18 20:31 Sodium 136 mmol/L (136-145) 02/11/18 23:06 Potassium 7.3 mmol/L (3.5-5.1) H* 02/11/18 23:06 Chloride 115 mmol/L (98-107) H 02/11/18 23:06 Carbon Dioxide 13 mmol/L (22-29) L 02/11/18 23:06 BUN 46 mg/dL (8.4-25.7) H 02/11/18 23:06 Creatinine 1.87 mg/dL (0.6-1.3) H 02/11/18 23:06 Glucose 226 mg/dL (70-105) H 02/11/18 23:06 Lactic Acid 2.6 mmol/L (0.5-2.2) H 02/11/18 20: Calcium 8.8 mg/dL (7.8-10.44) 02/11/18 23:06 Total Bilirubin 0.4 mg/dL (0.2-1.2) 02/11/18 20: AST 94 U/L (5-34) H 02/11/18 20: ALT 91 U/L (8-55) H 02/11/18 20:31 Alkaline Phosphatase 161 U/L (40-150) H 02/11/18 20:31 CK-MB (CK-2) 1.0 ng/mL (0-6.6) 03/22/18 20:31 Serum Total Protein 9.1 g/dL (6.0-8.3) H 02/11/18 20:31 Albumin 4.5 g/dL (3.5-5.0) 02/11/18 20:31 Lipase 47 U/L (8-78) 02/11/18 20:31 Urine Ketones Negative mg/dL (Negative) 02/11/18 22:04 Urine Blood Negative (Negative) 02/11/18 22:04 Urine Nitrite Negative (Negative) 02/11/18 22:04 Ur Leukocyte Esterase Negative (Negative) 02/11/18 22:04 - EKG Interpretation EKG: peaked t waves, 1st degree AV block - Radiology Interpretation CT scan - abdomen Status: image reviewed by me Additional comment: diffuse bowel gas and stool in intestines suggestive of constipation; no free air; no gross fluid noted CT scan - head Status: pending FMR H&P: A/P - Problem List (1) Hyperkalemia Current Visit: Yes Status: Acute Code(s): E87.5 - HYPERKALEMIA (2) Cirrhosis Current Visit: Yes Status: Acute Code(s): K74.60 - UNSPECIFIED CIRRHOSIS OF LIVER (3) HLD (hyperlipidemia) Current Visit: Yes Status: Acute Code(s): E78.5 - HYPERLIPIDEMIA, UNSPECIFIED (4) Headache Current Visit: Yes Status: Acute Code(s): R51 - HEADACHE (5) Left arm weakness Current Visit: Yes Status: Acute Code(s): R29.898 - OTH SYMPTOMS AND SIGNS INVOLVING THE MUSCULOSKELETAL SYSTEM (6) DMII (diabetes mellitus, type 2) Current Visit: No Status: Chronic (7) HTN (hypertension) Current Visit: No Status: Chronic Code(s): I10 - ESSENTIAL (PRIMARY) HYPERTENSION (8) Transaminitis Current Visit: No Status: Chronic Code(s): R74.0 - NONSPEC ELEV OF LEVELS OF TRANSAMNS & LACTIC ACID DEHYDRGNSE (9) Lactic acidosis Current Visit: No Status: Resolved Code(s): E87.2 - ACIDOSIS (10) GERD (gastroesophageal reflux disease) Current Visit: Yes Status: Acute Code(s): K21.9 - GASTRO-ESOPHAGEAL REFLUX DISEASE WITHOUT ESOPHAGITIS (11) Diastolic CHF Current Visit: Yes Status: Acute Code(s): I50.30 - UNSPECIFIED DIASTOLIC ( CONGESTIVE) HEART FAILURE (12) BPH (benign prostatic hyperplasia) Current Visit: No Status: Acute Code(s): N40.0 - BENIGN PROSTATIC HYPERPLASIA WITHOUT LOWER URINRY TRACT SYMP Qualifiers: Lower urinary tract symptom presence: symptoms present Lower urinary tract symptom detail: straining on urination Qualified Code(s): N40.1 - Benign prostatic hyperplasia with lower urinary tract symptoms; R39.16 - Straining to void; R39.16 - Straining to void - Plan 62 yo male with cirrhosis presents with weakness, diarrhea, and a headache admitted for hyperkalemia and an JAZMYN. 1) JAZMYN - BUN/Cr ratio suggest prerenal etiology, possibly CHF. We plan to hold nephrotoxic medications. Dr. Pinon with nephrology was consulted in the ER. We will check a FeNA. 2) Hyperkalemia -We are unsure of the precipitating event. The potassium was initially 7.7 and decreased to 7.3. He received: Calcium gluconate, Albuterol x3 , 1am NaBicarb, 1L NS, 1 amp D50W, 10U Novolin and Kayexelate in the ER. Nephrology was consulted and recommended repeating these medications, and starting a bicarb drip. We plan to recheck a BMP in 3 hours. 3) Lactic Acidosis - We have the pt on fluids and will repeat a lactic acid in four hours. We also ordered a blood culture in case this is infectious in etiology. 4) Steotohepatitis w/ cirrhosis - He has a hx of cirrhosis and was found to have diffuse tenderness on exam. A CT abdomin without contrast was ordered d/t his JAZMYN and we will follow-up on these results. We also ordered an ammonia level and will hold liver toxic medications. 5) DM2 -we placed him on ISS, and accuchecks ACHS. We will hold metformin due to lactic acidosis. 6) GERD - continue home medication 8) HTN - continue home medications. PRN's 9) Headache and LUE weakness w/ superimposed generalized weakness likey 2/2 #2- we will obtain a Brain CT w/o contrast to further evaluate. 10) dCHF - We will order a BNP to assess volume status better. We will hold ASA and Lisinopril. 11) Hx asthma - Albuterol PRN 12) HLD - Hold home medication due to cirrhosis at this time. 13) BPH - continue home medications 14) Non-anion gap metabolic acidosis - Dr. Pinon recommended starting a bicarb drip. We will recheck a BMP in 3 hours. 15) Transamonitis-2/2 #4 16)Elevated Coags-2/2 #4 FMR H&P: Upper Level - Plan Date/Time: 02/12/18 0021 Priscilla Upton, PGY3, have evaluated this patient and agree with findings/plan as outlined by general internal medicine physician resident. Pertinent changes/additions are listed here. This is a 62 yo WM w/ PMH recently diagnosed non-alcoholic steatohepatitis w/ cirrhosis, KAREEN, GERD, DM2, HTN, dCHF (12/2017), Asthma, Tubular adenoma, HLD, presents w/ 3 day history of generalized headache, watery eyes, chills, generalized weakness, and abdominal increase, diarrhea, nausea. He recently had surgery about 2 weeks ago for cholecysctomy and hernia repair. He states that he has changed his diet and eating lots more spinach and carrots and cabbage the past few weeks. PE: Gen AOx4, in no acute distress HEENT: NATALI, TM injected, no bulge or retraction Neuro: CNII-XII intact. +5/5 strength UE symmetric bilaterally +4/5 R hip flexion due to R hip surgery chronic, +5/5 LE otherwise symmetric. Sensation intact UE and LE equal. CV: +2 systolic murmur. RRR. Resp: CTA bilaterally. Abd: No guarding, diffusely tender, +fluid wave. Ext: No edema bilaterally LE. EKG - peaked T waves, 1st degree AV block. 1) JAZMYN - Unsure of precipitating cause. Possibly dehydration 2/2 watery diarrhea , however not consistent with labs. Hold Nephrotoxic medications. Nephrology consults in ER. Will check FeNA. 2) Hyperkalemia - Potassium initially 7.7 and decreased to 7.3 after Calcium gluconate, Albuterol x3, 1am NaBicarb, 1L NS, 1 amp D50W, 10U Novolin and Kayexelate. Nephrology was consulted and recommended repeating these medications , and starting a bicarb drip. F/u with their recommendations. We will Repeat BMP q3hr. Will check BNP. 3) Lactic Acidosis - Fluids. Repeat Lactic acid. Blood cx, UA. 4) Steotohepatitis w/ cirrhosis - abdominal exam tender to palpation. Will f/u with CT abdomin results. Hold liver toxic medications. Ammonia level 5) DM2 - hold metformin due to lactic acidosis, ISS. Accuchecks qACHS 6) GERD - continue home medication 7) Abdominal pain - f/u with CT scan abdomen. Consult Dr. Valentine in am as recently had surgery 8) HTN - continue home medications. PRN's 9) Headache and LUE weakness w/ superimposed generalized weakness likey 2/2 #2, however will obtain Brain CT w/o to r/o stroke. F/u with Urine cx, blood cx. 10) dCHF - f/u outpatient. Currently on ASA, so will hold ASA until further information. Unable to tolerate Lisinopril due to JAZMYN. BNP. 11) Hx asthma - Albuterol PRN 12) HLD - Hold home medication due to cirrhosis at this time. 13) BPH - continue home medications 14) Non-anion gap metabolic acidosis - Bicarb drip started. F/u with BMP in 3 hrs. 15) Increased coag's and transamonitis likely / #4. Attending Addendum - Attending Addendum Date/Time: 02/12/18 0158 I personally evaluated the patient and discussed the management with Dr. Carmelo Zee on 02/12/18. I agree with the History, Examination, Assessment and Plan documented above with any addition or exceptions noted below. Patient with JAZMYN leading to hyperkalemia. JAZMYN likely due to a combination of prerenal and obstructive process, as he is currently getting cardiac clearance for a prostatectomy and has also been experiencing diarrhea for [address] Parmar consulted for hyperkalemia, will continue his recs. Kayexalate given, patient advised to expect increased BMs. Also getting bicarb, insulin with D5, and fluid resuscitation. JAZMYN already improving, with mild improvement in potassium. However, continues to be elevated in severe range. EKG with subtle T wave peaking, will admit to IMCU for close observation. Received calcium gluconate already in ER.
[2018-02-12] MEDS ORDERED: Dextrose 50% Abboject 50 ML SYRINGE SLOW IVP PRN (00:28)
[2018-02-12] MEDS ORDERED: Dextrose 5% in Water 1,000 ML IV PRN (00:28)
[2018-02-12] MEDS ORDERED: Sodium Chloride 0.9% 1,000 ML IV SCH ×2 (00:30→02:45)
[2018-02-12] MEDS ORDERED: Albuterol Sulfate 2.5 mg/3 ml Neb ONE (00:36)
[2018-02-12] MEDS ORDERED: Dextrose 50% Abboject 50 ML SYRINGE ONE (00:37)
[2018-02-12] MEDS ORDERED: Calcium Chloride 1 GM/10 ML Abboject SYRINGE ONE (00:40)
[2018-02-12] MEDS ORDERED: Sodium Bicarbonate 150 MEQ in Dextrose 5% in Water 1,000 ML IV SCH (00:45)
[2018-02-12] MEDS ORDERED: Calcium Gluc 4.6 MEQ/10 ML (100 MG/ML) ONE (01:07)
[2018-02-12] MEDS ORDERED: Fentanyl 100 MCG/2 ML VIAL ONE (01:15)
[2018-02-12 02:01] LABS: Lactic Acid 6.1 mmol/L (0.5-2.2)
[2018-02-12] MEDS: HumaLOG 300 UNITS/3 ML VIAL SC PRN ×2 (03:01→06:18)
[2018-02-12 03:15] VITALS: BMI 32.7
[2018-02-12 04:29] LABS: #Lymphocytes 0.8 thou/uL (1.20-3.40); #Monocytes 0.4 thou/uL (0.11-0.59); %Basophils 0.2 % (0.0-1.0); %Eosinophils 0.1 % (0.0-10.0); %Lymphocytes 7.3 % (21.0-51.0); %Monocytes 3.6 % (0.0-10.0); %Neutrophils 88.8 % (42.0-75.0); Mean Corpuscular HGB CONC 33.5 g/dL (32.0-36.0); Mean Corpuscular Hemoglobin 30.2 pg (27.0-31.0); Mean Corpuscular Volume 90.2 fl (80.0-94.0); Platelet Count 185 thou/uL (130-400); RBC Distribution Width 14.7 % (11.5-14.5); Red Blood Cell (RBC) Count 3.62 mill/uL (4.70-6.10); White Blood Cell (WBC) Count 11.2 thou/uL (4.8-10.8)
[2018-02-12 04:35] LABS: Anion Gap 17 mmol/L (10-20); BUN (Urea Nitrogen) 42 mg/dL (8.4-25.7); Calc. Creatinine Clearance 61 mL/min (70-130); Calcium 8.8 mg/dL (7.8-10.44); Carbon Dioxide 12 mmol/L (22-29); Chloride 114 mmol/L (98-107); Estimated GFR-MDRD 40; Glucose 381 mg/dL (70-105); Potassium 5.3 mmol/L (3.5-5.1); Sodium 138 mmol/L (136-145)
[2018-02-12 04:55] LABS: Lactic Acid 7.1 mmol/L (0.5-2.2)
[2018-02-12] MEDS ORDERED: Sodium Bicarbonate 150 MEQ in Sodium Chloride 0.45% 1,000 ML IV SCH (05:00)
[2018-02-12] MEDS ORDERED: Lactated Ringer's 1,000 ML IV SCH (06:00)
[2018-02-12 06:11] LABS: Actual Bicarbonate (HCO3a) 14.8 mEq/L (22-26); Base Excess (BEa) -10.2 mEq/L (0 (+/-) 2.5); CO2 Tension 29.6 mmHg (35.0-45.0); O2 Tension (PaO2) 118.5 mmHg (80.0-100.0); pH, Arterial 7.32 (7.35-7.45)
[2018-02-12 06:12] LABS: Calcium, Ionized 1.2 mmol/L (1.12-1.30); Hematocrit-ABG 30.5 % (42.0-52.0); Hemoglobin (Hb) 9.9 g/dL (14.0-18.0); Puncture Site RRA
--- NOTE | 2018-02-12 06:14 | PDOC.EVN ---
Event Note - Event Note Event Note: Pt lactic acid increased from initially 2.6 to 6.1 now 7.1 after 3 1/2 L of fluids. Lactic acidosis appears to be peaking. Potassium improved from 7.7 to 5.3 and Creatinine from 2-> 1.73. Discussed with Dr. Johnson and Dr. Blake. Patient's abdominal exam improved, and now non-tender. Will change fluids and stop Bicarb drip and start NS @ 150. And f/u with BMP and Lactic acid at 0800am this morning to adjust as necessary. ABG ordered.
[2018-02-12 06:29] LABS: Creatinine, Urine 61.18 mg/dL (63-166)
--- NOTE | 2018-02-12 07:36 | CT ---
PRELIMINARY REPORT/[facility]/EMERGENCY AFTER HOURS PROCEDURE: EXAM: CT Head Without Intravenous Contrast EXAM DATE/TIME: Exam ordered 02/12/2018 1:29 AM CLINICAL HISTORY: 62 years old, male; Pain; Headache; Patient HX: Headache x3days, l arm pain TECHNIQUE: Axial computed tomography images of the head/brain without intravenous contrast. COMPARISON: No relevant prior studies available. FINDINGS: Brain: Unremarkable. No hemorrhage. No significant white matter disease. No edema. Ventricles: Unremarkable. No ventriculomegaly. Bones/joints: Unremarkable. No acute fracture. Soft tissues: Unremarkable. Sinuses: Unremarkable as visualized. No acute sinusitis. Mastoid air cells: Unremarkable as visualized. No mastoid effusion. IMPRESSION: Normal head/brain CT. Thank you for allowing us to participate in the care of your patient. Dictated and Authenticated by: Tom Martinez MD 02/12/2018 1:35 AM Central Time ([place] & [place]) FINAL INTERPRETATION HEAD CT WITHOUT CONTRAST: 02/12/2018 COMPARISON: None. HISTORY: Headaches. FINDINGS: I agree with the preliminary [facility] report by Dr. Martinez. The imaged paranasal sinuses and mastoid ai r cells are well-aerated. No displaced calvarial fracture, intracranial hemorrhage, midline shift, o r mass effect. IMPRESSION: No acute findings. Code QA. POS: [facility]
[2018-02-12] MEDS: Amlodipine 10 MG TAB PO SCH (08:31)
[2018-02-12 08:51] LABS: Anion Gap 16 mmol/L (10-20); BUN (Urea Nitrogen) 35 mg/dL (8.4-25.7); Calc. Creatinine Clearance 76 mL/min (70-130); Calcium 8.7 mg/dL (7.8-10.44); Carbon Dioxide 16 mmol/L (22-29); Chloride 113 mmol/L (98-107); Estimated GFR-MDRD 53; Glucose 256 mg/dL (70-105); Sodium 140 mmol/L (136-145)
[2018-02-12 08:57] LABS: Lactic Acid 4.2 mmol/L (0.5-2.2)
[2018-02-12] MEDS ORDERED: Furosemide 40 MG/4 ML VIAL SLOW IVP SCH (09:00)
--- NOTE | 2018-02-12 09:14 | CT ---
PRELIMINARY REPORT/[facility]/EMERGENCY AFTER HOURS PROCEDURE: EXAM: CT Abdomen and Pelvis Without Intravenous Contrast EXAM DATE/TIME: Exam ordered 02/12/2018 12:09 AM CLINICAL HISTORY: 62 years old, male; Pain; Abdominal pain; Generalized; Prior surgery; Surgery date: 1-6 months; Surge ry type: Er 4; Abdominal pain (generalized); Patient reports migraine x three days, decreased appetite, diarrhea x 2 days. Patient denies any known fever but states he had chills earlier today. N o chest pain. Surgical history of cholecystectomy, surgical history of hernia repair TECHNIQUE: Axial computed tomography images of the abdomen and pelvis without intravenous contrast. Coronal reformatted images were created and reviewed. COMPARISON: No relevant prior studies available. FINDINGS: Lower thorax: No acute findings. ABDOMEN: Liver: Unremarkable. Gallbladder and bile ducts: Prior cholecystectomy. No ductal dilation. Pancreas: Unremarkable. No ductal dilation. Spleen: Unremarkable. No splenomegaly. Adrenals: Unremarkable. No mass. Kidneys and ureters: Unremarkable. No obstructing stones. No hydronephrosis. Stomach and bowel: Unremarkable. No obstruction. No mucosal thickening. Appendix: Normal appendix. PELVIS: Bladder: Unremarkable. No stones. Reproductive: Unremarkable as visualized. ABDOMEN and PELVIS: Intraperitoneal space: Unremarkable. No free air. No significant fluid collection. 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 Right hip prosthe sis. No acute fracture. No dislocation. Soft tissues: Unremarkable. Vasculature: Unremarkable. No abdominal aortic aneurysm. Lymph nodes: Unremarkable. No enlarged lymph nodes. 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 Thank you for allowing us to participate in the care of your patient. Dictated and Authenticated by: Tom Martinez MD 02/12/2018 12:32 AM Central Time ([place] & [place]) FINAL REPORT CT ABDOMEN AND PELVIS WITHOUT IV CONTRAST: INDICATIONS: Abdominal pain. IMPRESSION: 1. No definite acute abnormality. 2. There is prominent fatty infiltration of the liver. No renal or ureteral calculus is evident. 3. No large, drainable fluid collection is noted. 4. There is a normal appendix in the right lower quadrant. 5. The gallbladder is surgically absent. 6. There is osteonecrosis of the left femoral head without evidence of subchondral collapse. POS: [facility]
--- NOTE | 2018-02-12 11:12 | PDOC.EVN ---
Event Note - Event Note Event Note: Discuss result of CT scan finding left femoral head osteonecrosis with extrusion die repairer orthopedic surgeon. Recommended crutches, 50% weight bearing and follow up with orthopedic associates as an outpatient. Appreciate ortho recs.
[2018-02-12] MEDS: Sodium Chloride 0.9% 1,000 ML IV SCH ×2 (12:27→21:01)
[2018-02-12 12:40] LABS: Anion Gap 15 mmol/L (10-20); BUN (Urea Nitrogen) 31 mg/dL (8.4-25.7); Calc. Creatinine Clearance 94 mL/min (70-130); Calcium 8.9 mg/dL (7.8-10.44); Carbon Dioxide 17 mmol/L (22-29); Chloride 116 mmol/L (98-107); Estimated GFR-MDRD 67; Glucose 130 mg/dL (70-105); Sodium 143 mmol/L (136-145)
[2018-02-12] MEDS ORDERED: diphenhydrAMINE 25 MG in Sodium Chloride 0.9% 50 ML IVPB SCH (14:00)
[2018-02-12] MEDS ORDERED: Metoclopramide HCl 10 MG/2 ML VIAL IVP PRN (14:01)
[2018-02-12] MEDS ORDERED: Metoclopramide HCl 10 MG/2 ML VIAL IVP SCH (14:15)
--- NOTE | 2018-02-12 15:15 | CON ---
DATE OF CONSULTATION: 02/12/2018 Consult encompassed 50 minutes time. At that time, greater than 50% was spent with the patient and/o r on the patients' floor in the hospital. REASON FOR CONSULTATION: IMCU stay. HISTORY OF PRESENT ILLNESS: The patient is a 62-year-old male who was admitted to [facility] last night complaining of weakness, diarrhea, headache and left arm heaviness. He is able to g ander his own history without limitation. I have also reviewed the notes in the chart. The patient was found to have an elevated potassium above 7. His EKG showed some peaked T waves and this did respond to medical therapy and he did not require hemodialysis. He says he feels a little better this morning except for continued abdominal distention. PAST MEDICAL HISTORY: Remarkable for, 1. Cirrhosis secondary to hepatitis C. 2. Obesity. 3. Recent laparoscopic cholecystectomy. 4. Chronic back pain. 5. Chronic kidney disease. 6. Diabetes mellitus type 2. 7. Hypertension. 8. Hyperlipidemia. PAST SURGICAL HISTORY: 1. History of laparoscopic cholecystectomy. 2. Hip replacement. FAMILY MEDICAL HISTORY: Remarkable for stroke. SOCIAL HISTORY: Nonsmoker. Does not consume alcohol, does not use illicit drugs. REVIEW OF SYSTEMS: Twelve point review of systems otherwise negative. MEDICATIONS PRIOR TO ADMISSION: Loperamide, tramadol, Zanaflex, Crestor, Phenergan, Pravachol, Coreg , metformin, Zofran, omeprazole, Mobic, gabapentin, Prozac, Colace, Bentyl, Valium, and aspirin. PHYSICAL EXAMINATION: VITAL SIGNS: Temperature 98.5, pulse 101, blood pressure 122/67, O2 sat 97%, respiratory rate 18. HEENT: Unremarkable. NECK: No adenopathy or JVD, no bruits. LUNGS: Clear without wheezing. CARDIAC: S1, S2 regular, without murmur. ABDOMEN: Soft, obese, nontender, nondistended. EXTREMITIES: No clubbing, cyanosis, or edema. LABORATORY DATA: White blood cell count 11.2, hematocrit 32.7, platelet count 185. INR 1.2, pH 7.32 , pCO2 of 29, PO2 of 118. Sodium 140, potassium 5.0, chloride 113, CO2 of 16, BUN 35, creatinine 1.4 , glucose 256. Lactate was 4.2. His abdominal pelvic CT was essentially negative. ASSESSMENT: Elevated potassium in the setting of a metabolic acidosis, the reason for which is not c lear. He is probably experiencing sepsis syndrome and is dry. Symptoms have improved with hydration and medical therapy. RECOMMENDATIONS: 1. Nephrology consultation has been obtained. 2. Hydration. 3. Monitor potassium level.
[2018-02-12 15:19] LABS: Lactic Acid 1.6 mmol/L (0.5-2.2)
[2018-02-12 15:23] LABS: Anion Gap 12 mmol/L (10-20); BUN (Urea Nitrogen) 28 mg/dL (8.4-25.7); Calc. Creatinine Clearance 102 mL/min (70-130); Calcium 8.7 mg/dL (7.8-10.44); Carbon Dioxide 19 mmol/L (22-29); Chloride 115 mmol/L (98-107); Estimated GFR-MDRD 74; Glucose 133 mg/dL (70-105); Potassium 5.3 mmol/L (3.5-5.1); Sodium 141 mmol/L (136-145)
[2018-02-12 21:24] LABS: Anion Gap 11 mmol/L (10-20); BUN (Urea Nitrogen) 26 mg/dL (8.4-25.7); Calc. Creatinine Clearance 109 mL/min (70-130); Calcium 8.9 mg/dL (7.8-10.44); Carbon Dioxide 21 mmol/L (22-29); Chloride 112 mmol/L (98-107); Estimated GFR-MDRD 79; Glucose 97 mg/dL (70-105); Potassium 5.4 mmol/L (3.5-5.1); Sodium 139 mmol/L (136-145)
--- NOTE | 2018-02-13 00:42 | CON ---
DATE OF CONSULTATION: 02/12/2018 CONSULTING PHYSICIAN: Dr. Khalil. REASON FOR CONSULTATION: Hyperkalemia, acute kidney injury. REASON FOR ADMISSION: Diarrhea. HISTORY OF PRESENT ILLNESS: This is a 62-year-old male with history of cirrhosis, cholecystitis, ___ ___ diabetes, hypertension, asthma, who came to the hospital with above complaints and Nephrology is consulted for hyperkalemia. His potassium was found to be 7.1. The patient is feeling better. He was on medical management. Last night and got better. No fever o r chills. PAST MEDICAL HISTORY: 1. Positive for cirrhosis. 2. History of cholecystitis. 3. GERD. 4. Type 2 diabetes. 5. Hypertension. 6. Hyperlipidemia. PAST SURGICAL HISTORY: Cholecystectomy, hernia repair. HOME MEDICATIONS: Include loperamide, tramadol, Zanaflex, Crestor, Phenergan, Pravachol, metformin, Zofran, Mobic, Prozac, Colace, Bentyl, Valium, Ecotrin. ALLERGIES: OXYCODONE. SOCIAL HISTORY: No smoking, alcohol, or illicit drug use. FAMILY HISTORY: Noncontributory. REVIEW OF SYSTEMS: The following complete review of systems was negative, unless otherwise mentioned in the HPI or below: Constitutional: Weight loss or gain, ability to conduct usual activities. Skin: Rash, itching. Eyes: Double vision, pain. ENT/Mouth: Nose bleeding, neck stiffness, pain, tenderness. Cardiovascular: Palpitations, dyspnea on exertion, orthopnea. Respiratory: Shortness of breath, wheezing, cough, hemoptysis, fever or night sweats. Gastrointestinal: Poor appetite, abdominal pain, heartburn, nausea, vomiting, constipation, or diarrh ea. Genitourinary: Urgency, frequency, dysuria, nocturia. Musculoskeletal: Pain, swelling. Neurologic/Psychiatric: Anxiety, depression. Allergy/Immunologic: Skin rash, bleeding tendency. PHYSICAL EXAMINATION: GENERAL: This is a well-built male in no apparent distress. VITAL SIGNS: Temperature 98.5, pulse 80, respiratory blood pressure 140/61. HEENT: Atraumatic, normocephalic. Oral mucosa is moist. NECK: Supple, no masses. CARDIOVASCULAR: S1, S2 heard. Rate and rhythm regular. RESPIRATORY: Clear. ABDOMEN: Soft. MUSCULOSKELETAL: 1+ edema. DERMATOLOGIC: No skin rash. NEUROLOGIC: Alert, awake. PSYCHIATRIC: mood and affect. LABORATORY: Hemoglobin is 7.0, potassium is 5.3, BUN 28, creatinine is 1.03. Potassium is 7.7 on ar rival. ASSESSMENT AND PLAN: 1. Acute kidney injury. Renal function is much better. Creatinine 1.03 from 2.1. Agree with hydra tion Hyperkalemia, better. 2. Acidosis, most likely from diarrhea. 3. Mild anemia. 4. Edema, controlled. 5. Continue supportive care. No acute indication for dialysis. We will follow. 6. Lactic acidosis. Continue IV fluids.
[2018-02-13] MEDS ORDERED: Ibuprofen 600 MG TAB PO PRN (01:31)
[2018-02-13 04:44] LABS: Anion Gap 10 mmol/L (10-20); BUN (Urea Nitrogen) 22 mg/dL (8.4-25.7); Calc. Creatinine Clearance 121 mL/min (70-130); Calcium 8.7 mg/dL (7.8-10.44); Carbon Dioxide 21 mmol/L (22-29); Chloride 110 mmol/L (98-107); Estimated GFR-MDRD 90; Glucose 85 mg/dL (70-105); Potassium 4.3 mmol/L (3.5-5.1); Sodium 137 mmol/L (136-145)
[2018-02-13] MEDS: Sodium Chloride 0.9% 1,000 ML IV SCH (04:45)
[2018-02-13 04:53] LABS: #Eosinphils 0.1 thou/uL (0.0-0.7); #Lymphocytes 2.2 thou/uL (1.20-3.40); #Monocytes 0.8 thou/uL (0.11-0.59); #Neutrophils 7.4 thou/uL (1.40-6.50); %Basophils 0.4 % (0.0-1.0); %Eosinophils 0.6 % (0.0-10.0); %Lymphocytes 20.7 % (21.0-51.0); %Monocytes 7.3 % (0.0-10.0); Mean Corpuscular HGB CONC 32.6 g/dL (32.0-36.0); Mean Corpuscular Hemoglobin 29.1 pg (27.0-31.0); Mean Corpuscular Volume 89.4 fl (80.0-94.0); Mean Platelet Volume 6.6 fL (7.4-10.4); Platelet Count 177 thou/uL (130-400); RBC Distribution Width 15.1 % (11.5-14.5); Red Blood Cell (RBC) Count 3.77 mill/uL (4.70-6.10); White Blood Cell (WBC) Count 10.4 thou/uL (4.8-10.8)
--- NOTE | 2018-02-13 05:50 | PDOC.FM ---
- Subjective Subjective: Rahul Chase is doing well today. No complaints and no acute events overnight. Patient states that his diarrhea has improved and his stools have firmed up. Denies fever, chills, chest pain, dyspnea, n/v/d. - Objective MAR Reviewed: Yes Vital Signs & Weight: Vital Signs (12 hours) Temp Pulse Resp BP Pulse Ox 02/13/18 03:56 98.9 F 81 17 143/75 H 98 02/13/18 00:00 99.2 F 86 18 126/54 L 98 02/12/18 20:35 98.6 F 91 19 98 02/12/18 19:33 98.6 F 91 19 160/65 H 98 Weight Admit Weight 94.755 kg Weight 94.755 kg I&O: 02/11/18 02/12/18 02/13/18 06:59 06:59 06:59 Intake Total 3000 2450 Output Total 950 2700 Balance 2050 -250 Result Diagrams: 02/13/18 04:01 02/13/18 04:01 <Travis Fitzgerald - Last Filed: 02/13/18 11:01> - Objective Vital Signs & Weight: Vital Signs (12 hours) Temp Pulse Resp BP Pulse Ox 02/13/18 19:55 98.7 F 78 18 154/79 H 94 L 02/13/18 15:00 98.4 F 82 18 135/75 97 02/13/18 12:00 97.9 F 86 18 147/75 H 96 Weight Admit Weight 94.755 kg Weight 96.162 kg I&O: 02/12/18 02/13/18 02/14/18 06:59 06:59 06:59 Intake Total 3000 4450 Output Total 950 3975 Balance 2049 475 Result Diagrams: 02/13/18 04:01 02/13/18 04:01 <Kirti Khalil - Last Filed: 02/13/18 21:37> Phys Exam - Physical Examination Constitutional: NAD HEENT: moist MMs, sclera anicteric Neck: no JVD, full ROM Respiratory: no wheezing, no rales, no rhonchi, clear to auscultation bilateral Cardiovascular: RRR, no significant murmur, no rub Gastrointestinal: soft, positive bowel sounds diffuse mild TTP and mild to mod distention Musculoskeletal: no edema, pulses present Neurological: non-focal, normal sensation, moves all 4 limbs Psychiatric: normal affect, A&O x 3 <Travis Fitzgerald - Last Filed: 02/13/18 11:01> Dx/Plan (1) JAZMYN (acute kidney injury) Code(s): N17.9 - ACUTE KIDNEY FAILURE, UNSPECIFIED Status: Resolved (2) Lactic acidosis Code(s): E87.2 - ACIDOSIS Status: Resolved (3) Hyperkalemia Code(s): E87.5 - HYPERKALEMIA Status: Resolved (4) Diastolic CHF Code(s): I50.30 - UNSPECIFIED DIASTOLIC (CONGESTIVE) HEART FAILURE Status: Chronic (5) GERD (gastroesophageal reflux disease) Code(s): K21.9 - GASTRO-ESOPHAGEAL REFLUX DISEASE WITHOUT ESOPHAGITIS Status: Chronic (6) DMII (diabetes mellitus, type 2) Status: Chronic (7) HTN (hypertension) Code(s): I10 - ESSENTIAL (PRIMARY) HYPERTENSION Status: Chronic - Plan Plan: 1) JAZMYN: resolved -BUN/Cr ratio suggests prerenal etiology -NephroDr. Pinon, on board, appreciate recs -decrease IVFs today and encourage PO fluid intake -holding nephrotoxic agents 2) Hyperkalemia: resolved -unsure of precipitating event, initial K was 7.7, now decrease to 4.3 -d/c IVFs today and increase PO fluid intake 3) Lactic Acidosis: resolved -discontinue IVFs -blood cultures pending 4) DM2: -SSI, accuchecks, fasting sugar this morning is 85 5) GERD: -home meds 6) HTN: -home meds, cont to monitor 7) HLD: -home meds <Travis Fitzgerald - Last Filed: 02/13/18 11:01> Attending Addendum - Attending Addendum Date/Time: 02/13/18 102 I personally evaluated the patient and discussed the management with Dr. Fitzgerald. I agree with the History, Examination, Assessment and Plan documented above with any addition or exceptions noted below. The patient's c. diff PCR is pending. He notes improvement in diarrhea. Hyperkalemia is resolved. Will transfer out of [facility]. <Kirti Khalil - Last Filed: 02/13/18 21:37>
[2018-02-13] MEDS: FLUoxetine HCl 20 MG CAP PO SCH (08:15)
[2018-02-13] MEDS: Amlodipine 10 MG TAB PO SCH (08:15)
--- NOTE | 2018-02-13 10:17 | PRG ---
DATE OF SERVICE: 02/13/2018 SUBJECTIVE: Mr. Chase feels better today and he had no acute complaints. PHYSICAL EXAMINATION: VITAL SIGNS: On exam, temperature 98.9, pulse 81, blood pressure 134/71, O2 sat 97% on room air. HEENT: Unremarkable. NECK: No JVD. CHEST: Clear without wheezing. CARDIAC: S1 and S2, regular. ABDOMEN: Soft, obese, nontender, nondistended. EXTREMITIES: No clubbing, cyanosis, or edema. LABORATORY DATA: White blood cell count 10.4, hematocrit 33.7, platelet count 177. Sodium 137, pota ssium 4.3, chloride 110, CO2 of 21, BUN 22, creatinine 0.8, glucose 85. ASSESSMENT: 1. Hyperkalemia, which has resolved. 2. Renal insufficiency, which has improved. PLAN: 1. The patient can be transferred out to the medical floor. 2. Continue hydration. 3. He is C. difficile positive, so he needs to be treated with oral vancomycin - I will defer to the primary care service on that treatment.
--- NOTE | 2018-02-13 16:04 | PRG ---
Patient Name: PILO OAKLEY Date of service: 02/13/2018 Subjective: Patient was seen and examined at bedside and overnight events noted. Patient denies any shortness of breath or chest pain or palpitation. No history of nausea or vomiting or diarrhea or fever or chills or cramps. Objective: General: This is a well-built male in no apparent distress. Vital signs: Temperature 97.9, pulse 80, respiratory 18, blood pressure 147/75. HEENT: Atraumatic, normocephalic. Oral mucosa is moist. Neck: Supple. Cardiovascular: S1 S2 heard. Rate and rhythm regular. Respiratory: Clear to auscultation. Gastrointestinal: Abdomen is soft. Musculoskeletal: No tenderness. No edema. Dermatologic: No skin rash. Neurologic: Alert and awake and oriented X3. No focal neurologic deficits. Moving all the extremit ies. Psychiatric: Mood and affect normal. LABORATORY DATA: Potassium is 4.3, BUN 22, creatinine 0.8. ASSESSMENT AND PLAN: 1. Acute kidney injury. Renal function is much better. Creatinine 0.8. 2. Hyperkalemia. Potassium is better. 3. Acidosis, stable. 4. Edema, controlled. Continue supportive care. I will sign off. Please call back with any questions. Avoid nephrotoxins and monitor potassium closely and limit potassium intake.
[2018-02-13] MEDS ORDERED: Vancomycin HCl 25 MG/ML Oral PO SCH (23:45)
[2018-02-14 05:13] LABS: #Eosinphils 0.1 thou/uL (0.0-0.7); #Lymphocytes 2.1 thou/uL (1.20-3.40); #Monocytes 0.6 thou/uL (0.11-0.59); #Neutrophils 5.8 thou/uL (1.40-6.50); %Basophils 0.1 % (0.0-1.0); %Eosinophils 0.7 % (0.0-10.0); %Lymphocytes 24.8 % (21.0-51.0); %Monocytes 7.2 % (0.0-10.0); %Neutrophils 67.1 % (42.0-75.0); Hemoglobin 12.2 g/dL (14.0-18.0); Mean Corpuscular HGB CONC 33.3 g/dL (32.0-36.0); Mean Corpuscular Hemoglobin 29.4 pg (27.0-31.0); Mean Corpuscular Volume 88.5 fl (80.0-94.0); Mean Platelet Volume 6.4 fL (7.4-10.4); Platelet Count 191 thou/uL (130-400); RBC Distribution Width 14.7 % (11.5-14.5); Red Blood Cell (RBC) Count 4.16 mill/uL (4.70-6.10); White Blood Cell (WBC) Count 8.7 thou/uL (4.8-10.8)
--- NOTE | 2018-02-14 05:21 | PDOC.FM ---
- Subjective Subjective: Mr. Chase is doing well this morning. He has no complaints and there were no acute events overnight. He states that he had a couple BMs overnight and the stool has continued to be more formed than on admission. Denies fever, chills, chest pain, dyspnea, abdominal pain/n/v/d. Patient states that he is ready to go home today. - Objective MAR Reviewed: Yes Vital Signs & Weight: Vital Signs (12 hours) Temp Pulse Resp BP Pulse Ox 02/14/18 00:00 98.7 F 89 18 147/87 H 95 02/13/18 19:55 98.7 F 78 18 154/79 H 94 L Weight Admit Weight 94.755 kg Weight 96.162 kg I&O: 02/12/18 02/13/18 02/14/18 06:59 06:59 06:59 Intake Total 3000 4450 Output Total 950 3975 Balance 2050 475 Result Diagrams: 02/14/18 04:42 02/14/18 04:42 <Travis Fitzgerald - Last Filed: 02/14/18 06:24> - Objective Vital Signs & Weight: Vital Signs (12 hours) Temp Pulse Resp BP Pulse Ox 02/14/18 08:00 98.5 F 84 18 122/80 96 02/14/18 06:12 98.4 F 91 20 158/82 H 97 Weight Admit Weight 94.755 kg Weight 91.081 kg I&O: 02/13/18 02/14/18 02/15/18 06:59 06:59 06:59 Intake Total 4450 660 Output Total 3975 3 Balance 475 657 Result Diagrams: 02/14/18 04:42 02/14/18 04:42 <Kirti Khalil - Last Filed: 02/14/18 16:03> Phys Exam - Physical Examination Constitutional: NAD HEENT: moist MMs, sclera anicteric Neck: no JVD, supple, full ROM Respiratory: no wheezing, no rales, no rhonchi, clear to auscultation bilateral Cardiovascular: RRR, no significant murmur Gastrointestinal: soft, non-tender mild to moderate distention Musculoskeletal: no edema, pulses present Neurological: non-focal, moves all 4 limbs Psychiatric: normal affect, A&O x 3 <Travis Fitzgerald - Last Filed: 02/14/18 06:24> Dx/Plan (1) JAZMYN (acute kidney injury) Code(s): N17.9 - ACUTE KIDNEY FAILURE, UNSPECIFIED Status: Resolved (2) Lactic acidosis Code(s): E87.2 - ACIDOSIS Status: Resolved (3) Hyperkalemia Code(s): E87.5 - HYPERKALEMIA Status: Resolved (4) Diastolic CHF Code(s): I50.30 - UNSPECIFIED DIASTOLIC (CONGESTIVE) HEART FAILURE Status: Chronic (5) GERD (gastroesophageal reflux disease) Code(s): K21.9 - GASTRO-ESOPHAGEAL REFLUX DISEASE WITHOUT ESOPHAGITIS Status: Chronic (6) DMII (diabetes mellitus, type 2) Status: Chronic (7) HTN (hypertension) Code(s): I10 - ESSENTIAL (PRIMARY) HYPERTENSION Status: Chronic (8) C. difficile colitis Status: Acute - Plan Plan: 1) C Dif Colitis: Positive c dif Ag, toxin indeterminant - Treating with PO vancomycin - Patient stools have already become more formed since day of admission - Can continue treatment outpatient with close f/u with PCP 2) JAZMYN: resolved -BUN/Cr ratio suggests prerenal etiology -Nephro, Dr. Pinon, on board, appreciate recs -decrease IVFs today and encourage PO fluid intake -holding nephrotoxic agents 3) Hyperkalemia: resolved -unsure of precipitating event, initial K was 7.7, now decrease to 4.3 -d/c IVFs today and increase PO fluid intake 4) Lactic Acidosis: resolved -discontinue IVFs -blood cultures pending 5) DM2: -SSI, accuchecks, fasting sugar this morning is 85 6) GERD: -home meds 7) HTN: -home meds, cont to monitor 8) HLD: -home meds <Travis Fitzgerald - Last Filed: 02/14/18 06:24> Attending Addendum - Attending Addendum Date/Time: 02/14/18 3648 I personally evaluated the patient and discussed the management with Dr. Fitzgerald. I agree with the History, Examination, Assessment and Plan documented above with any addition or exceptions noted below. the patient felt much better this morning. Diarrhea has resolved. He will be discharged on oral vanc for c. diff. Electrolytes are normal. <Kirti Khalil - Last Filed: 02/14/18 16:03>
[2018-02-14 05:25] LABS: Anion Gap 13 mmol/L (10-20); BUN (Urea Nitrogen) 16 mg/dL (8.4-25.7); Calc. Creatinine Clearance 121 mL/min (70-130); Calcium 9.5 mg/dL (7.8-10.44); Carbon Dioxide 25 mmol/L (22-29); Chloride 103 mmol/L (98-107); Estimated GFR-MDRD 88; Glucose 142 mg/dL (70-105); Sodium 137 mmol/L (136-145)
[2018-02-14] MEDS: FLUoxetine HCl 20 MG CAP PO SCH (08:23)
[2018-02-14] MEDS: Amlodipine 10 MG TAB PO SCH (08:24)
[2018-02-14] MEDS ORDERED: Vancomycin HCl 25 MG/ML Oral PO SCH (09:00)
[2018-02-14 09:25] VITALS: BP 122/80; TEMP 98.5
--- NOTE | 2018-02-14 20:35 | DIS-2 ---
DATE OF ADMISSION: 02/12/2018 DATE OF DISCHARGE: 02/14/2018 RESIDENT: Travis Fitzgerald M.D. ADMITTING ATTENDING: Annabel Johnson D.O. DISCHARGE ATTENDING: Kirti Khalil M.D. CONSULTATIONS: 1. Nephrology, Dr. Pinon on 02/12/2018. 2. Pulmonology, Dr. Hollingsworth on 02/12/2018. PROCEDURES: 1. Abdomen and pelvis CT on 02/12/2018. Impression: No definite acute abnormality. Prominent fatt y infiltration of the liver. No renal or ureteral calculus is evident. No large drainable fluid col lection is noted. Normal appendix on the right lower quadrant. Gallbladder is surgically absent and osteonecrosis of the left femoral hip without evidence of subchondral collapse. 2. Brain CT on 02/12/2018. Impression: Normal head/brain CT. 3. Clostridium difficile colitis. Impression: Antigen positive, toxin indeterminate. 4. Influenza type A and B negative. 5. Blood culture, no growth to date. PRIMARY DIAGNOSES: 1. Acute kidney injury. 2. Hyperkalemia. 3. Lactic acidosis. 4. Clostridium difficile colitis. SECONDARY DIAGNOSES: 1. Cirrhosis. 2. Diastolic congestive heart failure. 3. Hypertension. 4. Hyperlipidemia. 5. Type 2 diabetes. 6. Gastroesophageal reflux disease. DISCHARGE MEDICATIONS: 1. Metronidazole 500 mg p.o. t.i.d. for 14 days. 2. Amlodipine 10 mg p.o. daily. 3. Loperamide 2 mg p.o. p.r.n. 4. Tramadol 50 mg p.o. b.i.d. p.r.n. 5. Diazepam 5 mg p.o. b.i.d. p.r.n. 6. Bentyl 10 mg p.o. t.i.d. 7. Colace 100 mg p.o. t.i.d. p.r.n. 8. Fluoxetine 40 mg p.o. daily. 9. Ondansetron 4 mg p.o. q.8 hours p.r.n. 10. Polyethylene glycol 17 grams p.o. daily. 11. Promethazine 25 mg p.o. q.4 hours p.r.n. 12. Rosuvastatin 20 mg p.o. daily. 13. Aspirin 81 mg p.o. daily. 14. Tizanidine 4 mg p.o. t.i.d. p.r.n. 15. Metformin 1000 mg p.o. b.i.d. 16. Omeprazole 40 mg p.o. b.i.d. 17. Meloxicam 15 mg p.o. daily. 18. Gabapentin 1200 mg p.o. b.i.d. HISTORY OF PRESENT ILLNESS AND HOSPITAL COURSE: Rahul Chase is a 62-year-old male with past medica l history of cirrhosis, type 2 diabetes, hypertension, and hyperlipidemia, who presented to the ED wi th 3-day history of diarrhea that he described as watery. He endorsed weakness that started as left arm weakness that is now diffuse with chills. He endorses some nausea, but no vomiting and worsening shortness of breath when he lies down. In the ED, he was found to have a potassium of 7.3, creatini ne of 1.87, BUN of 46, bicarbonate 13, chloride of 115. His EKG had peaked T waves and showed first degree AV block. A CT of his abdomen showed diffuse bowel gas and stool in intestine suggesting cons tipation. No free air or gross fluid noted. The patient was given 2 rounds of calcium gluconate, so dium bicarbonate, 10 units of Novolin, 1 amp of D50, breathing treatment of albuterol and Kayexalate in the ED. He was admitted for acute kidney injury, hyperkalemia, and lactic acidosis. The etiology of the acute kidney injury and hyperkalemia was never definitively determined, but it was likely satnam t the diarrhea leading to dehydration was the cause. The BUN to creatinine ratio did suggest prerena l etiology. All nephrotoxic agents were held. The patient's lactic acidosis and hyperkalemia resolv ed with fluids. Initially hyperkalemia as well as a lactic acidosis resolved within 24 hours of admi ssion and remained within normal limits. On 02/14/2018, the patient was cleared for discharge. Labo ratory studies for C. diff showed that he was antigen positive and toxin indeterminate. The patient continued to have bowel movements while on the hospital, they became more formed stools, especially o n the last day with a history, though in the indeterminate lab studies for C. diff. We decided to dis charge him with a course of p.o. metronidazole and instruction to follow up with [facility] early next week for recheck of his potassium. Nephrology recommended avoiding nephrotoxins and delon toring potassium closely as well as limiting potassium intake. We incidentally found osteonecrosis o f the left femoral hip, and we discussed the case with Orthopedics, and they said that the patient sh ould follow up with him on outpatient basis and use crutches until they can see and evaluate him. Pr escription was provided for patient for crutches. The patient was cleared for discharge on 8. All questions were answered and he was in agreement with the plan. DISPOSITION: Stable. DISCHARGE INSTRUCTIONS: 1. Location: Home. 2. Diet: Heart healthy and diabetic diet. 3. Activity: As tolerated. Follow up with [facility] within the next week and with ortho pedics to discuss osteonecrosis of the left femoral head.
--- NOTE | 2018-02-28 01:18 | EKG ---
Test Reason : Blood Pressure : / mmHG Vent. Rate : 091 BPM Atrial Rate : 091 BPM P-R Int : 216 ms QRS Dur : 108 ms QT Int : 340 ms P-R-T Axes : 031 -12 057 degrees QTc Int : 418 ms Sinus rhythm with 1st degree A-V block Peaked T waves Otherwise normal ECG Confirmed by SANDEE MICHAEL, PRABHA ([id number]), senior technical editor TRISHA SABA ([id number]) on 02/28/2018 1:18:08 AM Referred By: Confirmed By:PRABHA IGNACIO MD
== END 2018-02-14 10:22 | disposition home or self-care (01) | DRG 683 ==
LOC: ERS 19:43 → IMCU/EMU 02-12 01:48 → T4-A 02-13 20:06
PROVIDERS: ADMIT Family Medicine; ATTEND Family Medicine
DX: N17.9 Acute kidney failure, unspecified (principal); E87.2 Acidosis; E11.22 Type 2 diabetes mellitus with diabetic chronic kidney disease; A04.72 Enterocolitis due to Clostridium difficile, not specified as recurrent; E87.5 Hyperkalemia; I50.32 Chronic diastolic (congestive) heart failure; I13.0 Hypertensive heart and chronic kidney disease with heart failure and stage 1 through stage 4 chronic kidney disease, or unspecified chronic kidney disease; E11.9 Type 2 diabetes mellitus without complications; D64.9 Anemia, unspecified; M87.852 Other osteonecrosis, left femur; E86.0 Dehydration; E78.5 Hyperlipidemia, unspecified; K21.9 Gastro-esophageal reflux disease without esophagitis; K74.60 Unspecified cirrhosis of liver; I44.0 Atrioventricular block, first degree; K74.69 Other cirrhosis of liver; N40.1 Benign prostatic hyperplasia with lower urinary tract symptoms; R39.16 Straining to void; K75.81 Nonalcoholic steatohepatitis (NASH); J45.909 Unspecified asthma, uncomplicated; G47.33 Obstructive sleep apnea (adult) (pediatric); Z90.49 Acquired absence of other specified parts of digestive tract; Z98.890 Other specified postprocedural states
CPT/HCPCS: 36415; 36416; 70450; 74176; 80048; 80053; 81003; 82010; 82140; 82553; 82570; 82805; 83605; 83690; 83735; 83880; 84300; 84484; 85025; 85610; 85730; 87040; 87324; 87449; 87493; 87804; 93005; 96361; 96374; 96375; 96376; G8978-GP-CJ; G8979-GP-CJ; G8980-GP-CJ; J1200; J1815; J2765; J3010; J7050; J7070; J7611; J7620

== ENCOUNTER 2018-03-10 19:30 | Outpatient (CLI) | payer MEDICARE, MEDICAID | END 2018-03-10 19:31 | disposition home or self-care (01) | LOC: SLEEPLAB 19:30 | PROVIDERS: ATTEND Family Medicine | DX: G47.33 Obstructive sleep apnea (adult) (pediatric) (principal); E66.9 Obesity, unspecified; I11.0 Hypertensive heart disease with heart failure; I50.9 Heart failure, unspecified | CPT/HCPCS: 95810 ==

== ENCOUNTER 2018-03-15 10:15 | Outpatient (CLI) | payer MEDICARE, MEDICAID ==
[2018-03-15 11:11] LABS: Hemoglobin 13.6 g/dL (14.0-18.0); Mean Corpuscular HGB CONC 32.7 g/dL (32.0-36.0); Mean Corpuscular Volume 88.7 fl (80.0-94.0); Mean Platelet Volume 7.1 fL (7.4-10.4); Platelet Count 172 thou/uL (130-400); RBC Distribution Width 14.1 % (11.5-14.5); Red Blood Cell (RBC) Count 4.71 mill/uL (4.70-6.10); White Blood Cell (WBC) Count 10.9 thou/uL (4.8-10.8)
[2018-03-15 11:35] LABS: Anion Gap 15 mmol/L (10-20); BUN (Urea Nitrogen) 14 mg/dL (8.4-25.7); Calc. Creatinine Clearance 0 mL/min (70-130); Carbon Dioxide 23 mmol/L (23-31); Chloride 105 mmol/L (98-107); Estimated GFR-MDRD 83; Glucose 83 mg/dL (80-115); Potassium 4.2 mmol/L (3.5-5.1); Sodium 139 mmol/L (136-145)
== END 2018-03-15 10:16 | disposition home or self-care (01) ==
LOC: LABBT 10:15
PROVIDERS: ATTEND Urology
DX: Z01.812 Encounter for preprocedural laboratory examination (principal); N40.0 Benign prostatic hyperplasia without lower urinary tract symptoms
CPT/HCPCS: 80048; 81001; 85027

== ENCOUNTER 2018-03-23 11:54 | Day surgery (SDC) | payer MEDICARE, MEDICAID ==
[2018-03-15 10:20] VITALS: BMI 32.1
[2018-03-23] MEDS ORDERED: Dexamethasone 4 mg/ml Vial ONE (13:02)
[2018-03-23] MEDS ORDERED: Levofloxacin 500 mg/D5W 100 ml Premix Bag ONE (13:12)
[2018-03-23] MEDS ORDERED: Midazolam HCl 2 mg/2 ml Vial ONE (14:01)
[2018-03-23] MEDS ORDERED: Fentanyl 100 MCG/2 ML VIAL ONE (14:01)
[2018-03-23] MEDS ORDERED: B & O ONE (14:06)
[2018-03-23] MEDS ORDERED: Furosemide 20 MG/2 ML VIAL ONE (14:07)
[2018-03-23] MEDS ORDERED: PROPOFOL 200 MG/20 ML VIAL ONE (16:03)
[2018-03-23] MEDS ORDERED: Lidocaine 1% PF 5 ML VIAL ONE (16:03)
[2018-03-23] MEDS ORDERED: Dexamethasone 20 MG/5 ML VIAL ONE (16:03)
--- NOTE | 2018-03-23 19:27 | OP ---
DATE OF SERVICE: 03/23/2018 PREOPERATIVE DIAGNOSIS: Benign prostatic hypertrophy. POSTOPERATIVE DIAGNOSIS: Benign prostatic hypertrophy. PROCEDURE: GreenLight laser vaporization of the prostate. SURGEON: Krystin Eason MD. ANESTHESIA: General with laryngeal mask airway. FINDINGS: Adequate opening of a very tight bladder neck, 34,950 joules used. SPECIMEN: 2 chips of the prostate. There were multiple prostatic stones, although these were not sent. COMPLICATIONS: None. DRAINS: A 20-Nauruan 2-way. ESTIMATED BLOOD LOSS: Minimal. INDICATIONS: The patient is a 63-year-old male who was followed in the office for BPH and ultimately shown to have a relatively small prostate with a very tight bladder neck and elevated in comparison to the trigone and bladder floor, so set up for definitive surgical therapy. DESCRIPTION OF PROCEDURE: The patient was brought to the room by Anesthesia and laid on table in the supine position. After a general anesthetic, his legs were placed in lithotomy position. His perineum was prepped and draped in sterile fashion. Using a 22.5 Nauruan cystoscope and 30-degree lens, it was transversed and bladder inspected. Ureteral orifices were identified and preserved throughout the case. Bladder neck was tight and high and taken down the midline. Power level of 80 was used throughout the case as the gland was not that large. Throughout the case, there were multiple small stones that were encountered and larger ones that were released and avoided from direct fire for the laser. A significant volume of the prostate was actually of stones and all these were released and irrigated out. The bladder neck have been opened up and brought down to the bladder floor and when the scope was removed, decent stream was noted. The scope was put back in. Hemostasis was ensured and then the scope was removed final time and a 20 Nauruan Schulz was placed to gravity. The patient tolerated the procedure well and was then awakened and transferred to PACU in stable condition. PHONG
== END 2018-03-23 16:55 | disposition home or self-care (01) ==
LOC: SDC 11:54
PROVIDERS: ATTEND Urology
PROC: 0V507ZZ Destruction of Prostate, Via Natural or Artificial Opening (ICD-10-PCS; principal; 2018-03-23)
DX: N40.1 Benign prostatic hyperplasia with lower urinary tract symptoms (principal); R33.9 Retention of urine, unspecified; R35.0 Frequency of micturition; R35.1 Nocturia; R39.15 Urgency of urination; Z88.5 Allergy status to narcotic agent
CPT/HCPCS: 88305; J1100; J1940; J1956; J2001; J2250; J2704; J3010

== ENCOUNTER 2018-04-21 20:30 | Outpatient (CLI) | payer MEDICARE, MEDICAID | END 2018-04-21 20:31 | disposition home or self-care (01) | LOC: SLEEPLAB 20:30 | PROVIDERS: ATTEND Family Medicine | DX: G47.33 Obstructive sleep apnea (adult) (pediatric) (principal); I11.0 Hypertensive heart disease with heart failure; I50.9 Heart failure, unspecified; E66.9 Obesity, unspecified; Z68.33 Body mass index [BMI] 33.0-33.9, adult | CPT/HCPCS: 95811 ==

== ENCOUNTER 2018-05-12 23:23 | Emergency (ER) | payer MEDICARE, MEDICAID ==
[2018-05-12 23:41] LABS: Bilirubin Negative (Negative); Blood, Urine Small (Negative); Clarity CLEAR (Clear); Glucose, Urine (Dipstick) Negative (Negative); Leukocyte Small (Negative); Nitrite Negative (Negative); Protein, Urine (Dipstick) Negative (Neg-Trace); Specific Gravity, Urine 1.002 (1.002-1.036)
[2018-05-12 23:44] LABS: Bacteria/HPF None Seen HPF (None Seen); Hyaline Casts/LPF 0-3 HYALINE CAST LPF (0-3 Hyaline); Squamous Epithelial None Seen HPF (0-3)
[2018-05-13 00:33] LABS: ALT (SGPT) 35 U/L (8-55); AST (SGOT) 26 U/L (5-34); Albumin 4.3 g/dL (3.4-4.8); Alkaline Phosphatase 112 U/L (40-150); Anion Gap 16 mmol/L (10-20); BUN (Urea Nitrogen) 12 mg/dL (8.4-25.7); Bilirubin, Total 0.4 mg/dL (0.2-1.2); Calc. Creatinine Clearance 0 mL/min (70-130); Calcium 9.5 mg/dL (7.8-10.44); Carbon Dioxide 27 mmol/L (23-31); Chloride 101 mmol/L (98-107); Estimated GFR-MDRD 78; Globulin 3.6 g/dL (2.4-3.5); Glucose 102 mg/dL (80-115); Lipase 10 U/L (8-78); Potassium 4.2 mmol/L (3.5-5.1); Protein, Total 7.9 g/dL (5.8-8.1); Sodium 140 mmol/L (136-145)
[2018-05-13 00:37] LABS: CKMB 0.7 ng/mL (0-6.6); Troponin I Less than 0.010 ng/mL (< 0.028)
[2018-05-13] MEDS ORDERED: Fentanyl 100 MCG/2 ML VIAL ONE (01:18)
[2018-05-13] MEDS ORDERED: Ondansetron ODT 4 MG TAB ONE (01:19)
[2018-05-13] MEDS ORDERED: Ketorolac Tromethamine 30 MG/ML VIAL ONE (01:19)
[2018-05-13 01:47] LABS: #Eosinphils 0.2 thou/uL (0.0-0.7); #Lymphocytes 1.8 thou/uL (1.20-3.40); #Monocytes 0.4 thou/uL (0.11-0.59); #Neutrophils 5.2 thou/uL (1.40-6.50); %Basophils 0.4 % (0.0-1.0); %Eosinophils 2.2 % (0.0-10.0); %Lymphocytes 23.4 % (21.0-51.0); %Monocytes 5.6 % (0.0-10.0); %Neutrophils 68.4 % (42.0-75.0); Hemoglobin 11.2 g/dL (14.0-18.0); Mean Corpuscular HGB CONC 33.2 g/dL (32.0-36.0); Mean Corpuscular Hemoglobin 29.1 pg (27.0-31.0); Mean Corpuscular Volume 87.6 fL (78.0-98.0); Mean Platelet Volume 7.1 fL (7.4-10.4); Platelet Count 129 thou/uL (130-400); RBC Distribution Width 13.6 % (11.5-14.5); Red Blood Cell (RBC) Count 3.85 mill/uL (4.70-6.10); White Blood Cell (WBC) Count 7.5 thou/uL (4.8-10.8)
--- NOTE | 2018-05-13 09:40 | CT ---
PRELIMINARY REPORT/[facility]/EMERGENTY AFTER-HOURS PROCEDURE CT Abdomen and Pelvis Without Intravenous Contrast CLINICAL HISTORY: 63 years old, male; Pain; Abdominal pain; Generalized; Prior surgery; Patient HX: Pt reports diffuse abdominal pain onset tonight with associated nausea. Reports surgery in february - cholecystecomy, prost ate and hernia SX. TECHNIQUE: Axial computed tomography images of the abdomen and pelvis without intravenous contrast. Coronal refo rmatted images were created and reviewed. COMPARISON: No relevant prior studies available. FINDINGS: Lung bases: There is subpleural atelectasis of the dependent portions of the lungs. ABDOMEN: Liver: The liver is within normal limits for this noncontrast study. Gallbladder and bile ducts: There has been a cholecystectomy. No ductal dilation. Pancreas: The pancreas appears normal. No ductal dilation. Spleen: The spleen is normal. Adrenals: The adrenal glands are normal. Kidneys and ureters: The kidneys appear normal. No obstructing stones. No hydronephrosis. Stomach and bowel: The stomach is normal. The duodenum is unremarkable. The colon is normal. No obstr uction. No mucosal thickening. PELVIS: Appendix: A normal appendix is identified. Bladder: The bladder is normal. No stones. Reproductive: Unremarkable as visualized. ABDOMEN and PELVIS: Intraperitoneal space: Normal. No free air. No significant fluid collection. Bones/joints: There is RIGHT hip arthroplasty resulting in streak artifact in the pelvis. No acute fr acture. No dislocation. Soft tissues: Normal. Vasculature: Normal. No abdominal aortic aneurysm. Lymph nodes: Normal. No enlarged lymph nodes. IMPRESSION: No acute abdominal pelvic pathology. Thank you for allowing us to participate in the care of your patient. Dictated and Authenticated by: Stewart Cheatham MD 05/13/2018 2:18 AM Central Time ([place] & [place]) FINAL REPORT CT ABDOMEN AND PELVIS WITHOUT CONTRAST STONE PROTOCOL: HISTORY: Diffuse abdominal pain. Nausea. COMPARISON: CT abdomen and pelvis without contrast: Date: 02/12/18. FINDINGS/IMPRESSION: Findings and impression are concordant with the preliminary report. In addition, there is left femor al head osteonecrosis without collapse. There is also a nodular contour of the liver concerning for cirrhosis. POS: [facility]
--- NOTE | 2018-05-14 18:36 | PDOC.FPRHP ---
- History of Present Illness Chief Complaint: shortness of breath History of Present Illness: 63 yo HM pmhx signficant for asthma, T2DM, HTN, and HLD p/w acute onset of cough , shaking chills, and shortness of breath since he woke up around noon today. Cough was productive of yellowish sputum. States that he was feeling fine prior to that and in his normal state of health yesterday. He checked his BP which was low at home and called his doctor who instructed him to go to ER. Denies any associated CP, dysuria, rashes, night sweats, or joint pain. Of note, patient was recently admitted to our service at the end of December with chronic cholecystitis that required a laprascopic cholecystectomy. Intraoperatively, his liver was biopsied, which showed cirrhosis presumed 2/2 fatty liver disease. Additionally, on review of records, patient was evaluated in this ER 2 days ago for acute abdominal pain with negative CT. ED Course: Borderline hypotensive and tachycardic on initial ER presentation. Bolused 2L IVF and given IV Rocephin and Azithromycin. - Allergies/Adverse Reactions Allergies Allergy/AdvReac Type Severity Reaction Status Date / Time oxycodone HCl Allergy Verified 03/15/18 10:20 [From OxyContin] - Home Medications Medication Instructions Recorded Confirmed Type traMADol HCl [Tramadol HCl] 50 mg PO BID PRN 02/12/18 03/15/18 History Atorvastatin Calcium 40 mg PO HS 03/15/18 03/15/18 History Gabapentin [Gabapentin] 1 tab PO BID 03/15/18 03/15/18 History Linaclotide [Linzess] 1 tab PO HS 03/15/18 03/15/18 History Tamsulosin HCl [Flomax] 0.4 mg PO BID 03/15/18 03/15/18 History metFORMIN HCl [Metformin HCl] 1 tab PO BID 03/15/18 03/16/18 History Fluticasone/Salmeterol [Advair 1 inh IH BID 03/16/18 03/16/18 History Diskus 250/50] - History PMHx: 1) Steatohepatitis with cirrhosis 2) T2DM 3) HTN 4) HLD 5) Asthma 6) H/o BPH 7) H/o chronic LBP 2/w herniated disc 8) Diastolic CHF PSHx: 1) lap cholecystectomy w/ cholangiogram and liver biopsy (01/21/18) 2) ventral hernia repair 3) R hip replacements x 2 4) B/l elbow and wrist surgeries 5) Green light laser vaporization with TURP FHx: Noncontributory Social: Negative x 3, former smoker 25 yrs ago (3 PY); with 5 children , currently lives with his sister. - Review of Systems General: reports: fever/chills. denies: weight/appetite/sleep changes Eyes: denies: eye pain, vision changes ENT: denies: nasal congestion, rhinorrhea Respiratory: reports: cough, shortness of breath Cardiovascular: denies: chest pain, palpitation Gastrointestinal: denies: nausea, vomiting, diarrhea, constipation Genitourinary: denies: incontinence, dysuria Skin: denies: rashes, lesions Musculoskeletal: denies: pain, tenderness Neurological: denies: numbness, syncope Psychological: denies: anxiety, depression - Vital signs BP:110/67 HR: 106 RR: 18 Tmax: 100.8 Pox: 94% on 2L Wt: 100.7 kg - Physical Exam Constitutional: NAD, awake, alert and oriented, other (rigors noted) HEENT: normocephalic and atraumatic, PERRLA, EOMI, no scleral icterus, grossly normal hearing, other (mucous membranes dry) Neck: supple, trachea midline Heart: RRR, normal S1/S2, no murmurs/rubs/gallops, pulses present, other (2+ pitting edema b/l) Lungs: no respiratory distress, no wheezing, no retractions (mild scattered rales right lung), other Abdomen: soft, non-tender, bowel sounds present (distended, possible fluid wave) , no hernias, other (distended) Musculoskeletal: normal structure, normal tone Neurological: no focal deficit, CN II-XII intact, normal sensation Skin: no rash/lesions, good turgor Heme/Lymphatic: no unusual bruising or bleeding, no purpura, no petechia Psychiatric: normal mood and affect, good judgment and insight, intact recent and remote memory FMR H&P: Results - Labs Result Diagrams: 05/13/18 00:01 05/12/18 23:59 Lab results: WBC 7.5 thou/uL (4.8-10.8) 05/13/18 00:01 Hgb 11.2 g/dL (14.0-18.0) L 05/13/18 00:01 Hct 33.7 % (42.0-52.0) L 05/13/18 00:01 MCV 87.6 fL (78.0-98.0) 05/13/18 00:01 Plt Count 129 thou/uL (130-400) L 05/13/18 00:01 Neutrophils % 68.4 % (42.0-75.0) 05/13/18 00:01 Sodium 140 mmol/L (136-145) 05/12/18 23:59 Potassium 4.2 mmol/L (3.5-5.1) 05/12/18 23:59 Chloride 101 mmol/L (98-107) 05/12/18 23:59 Carbon Dioxide 27 mmol/L (23-31) 05/12/18 23:59 BUN 12 mg/dL (8.4-25.7) 05/12/18 23:59 Creatinine 0.98 mg/dL (0.6-1.3) 05/12/18 23:59 Glucose 102 mg/dL (80-115) 05/12/18 23:59 Calcium 9.5 mg/dL (7.8-10.44) 05/12/18 23:59 Total Bilirubin 0.4 mg/dL (0.2-1.2) 05/12/18 23:59 AST 26 U/L (5-34) 05/12/18 23:59 ALT 35 U/L (8-55) 05/12/18 23:59 Alkaline Phosphatase 112 U/L (40-150) 05/12/18 23:59 CK-MB (CK-2) 0.7 ng/mL (0-6.6) 05/12/18 23:59 Serum Total Protein 7.9 g/dL (5.8-8.1) 05/12/18 23:59 Albumin 4.3 g/dL (3.4-4.8) 05/12/18 23:59 Lipase 10 U/L (8-78) 05/12/18 23:59 Urine Ketones Negative mg/dL (Negative) 05/12/18 23:30 Urine Blood Small (Negative) H 05/12/18 23:30 Urine Nitrite Negative (Negative) 05/12/18 23:30 Ur Leukocyte Esterase Small (Negative) H 05/12/18 23:30 Urine RBC 4-6 HPF (0-3) 05/12/18 23:30 Urine WBC 4-6 HPF (0-3) H 05/12/18 23:30 Ur Squamous Epith Cells None Seen HPF (0-3) 05/12/18 23:30 Urine Bacteria None Seen HPF (None Seen) 05/12/18 23:30 - EKG Interpretation EKG: Sinus tachycardia FMR H&P: A/P - Problem List (1) Sepsis due to pneumonia Status: Acute Code(s): J18.9 - PNEUMONIA, UNSPECIFIED ORGANISM; A41.9 - SEPSIS , UNSPECIFIED ORGANISM Comment: Severe (2) Community acquired bacterial pneumonia Status: Acute Code(s): J15.9 - UNSPECIFIED BACTERIAL PNEUMONIA (3) Lactic acidosis Status: Acute Code(s): E87.2 - ACIDOSIS (4) JAZMYN (acute kidney injury) Status: Acute Code(s): N17.9 - ACUTE KIDNEY FAILURE, UNSPECIFIED (5) Cirrhosis Status: Chronic Code(s): K74.60 - UNSPECIFIED CIRRHOSIS OF LIVER (6) HLD (hyperlipidemia) Status: Chronic Code(s): E78.5 - HYPERLIPIDEMIA, UNSPECIFIED (7) DMII (diabetes mellitus, type 2) Status: Chronic (8) Diastolic CHF Status: Chronic Code(s): I50.30 - UNSPECIFIED DIASTOLIC (CONGESTIVE) HEART FAILURE (9) HTN (hypertension) Status: Chronic Code(s): I10 - ESSENTIAL (PRIMARY) HYPERTENSION - Plan 63 yo M with: 1) Severe sepsis 2/2 #2: Admit to IMCU. Continue IVF rescusitation of 30mL/kg. Monitor VSS, strict I's and O's. Abx given in ER. Blood and urine cxs pending. 2) R multifocal community acquired PNA: continuing IV azithromycin and Rocephin , can r/p CXR and add additional coverage if worsening. Prn O2. 3) Lactic acidosis: trending 4) JAZMYN on CKDII: Likely pre-renal, pt appeared dry with hyaline casts in urine. Recheck creatinine in AM after IVF resuscitation. 5) Possible UTI: asymptomatic, Rocephin should cover while pending cultures 6) Cirrhosis: 2/2 longstanding fatty liver disease, recheck CMP in AM. Pt does not require diuretics or lactulose at this time. Can resume home vitamin E. 7) T2DM: Non-insulin dependent. Hold metformin; SSI, accuchecks AC/HS or more frequently if hypo or hyper -glycemic 8) HTN: hold home BP medications while acutely hypotensive 9) HLD: cont. home statin 10) Asthma: prn duonebs 11) Chronic LBP: Home [place] prn 12) Diastolic dysfunction: seen on recent echo, does not require diuretics or O2 at baseline; monitor for volume overload. No evidence of demand ischemia at this point. Disposition/LOS: Will likely be able to be discharged to home after 2-3 midnights.
== END 2018-05-13 03:37 | disposition home or self-care (01) ==
LOC: ERS 23:23
DX: R10.9 Unspecified abdominal pain (principal)
CPT/HCPCS: 74176; 80053; 81003; 81015; 82553; 83690; 84484; 85025; 93005; 96374; 96375; J1885; J2270; J3010; Q0162

== ENCOUNTER 2018-05-14 14:46 | Inpatient (IN) | payer MEDICARE, MEDICAID ==
[2018-05-14 15:11] LABS: #Lymphocytes 1.2 thou/uL (1.20-3.40); #Monocytes 0.6 thou/uL (0.11-0.59); #Neutrophils 8.3 thou/uL (1.40-6.50); %Basophils 0.3 % (0.0-1.0); %Eosinophils 0.1 % (0.0-10.0); %Lymphocytes 12.1 % (21.0-51.0); %Monocytes 5.4 % (0.0-10.0); %Neutrophils 82.1 % (42.0-75.0); Hemoglobin 10.1 g/dL (14.0-18.0); Mean Corpuscular HGB CONC 32.8 g/dL (32.0-36.0); Mean Corpuscular Hemoglobin 29.1 pg (27.0-31.0); Mean Corpuscular Volume 88.7 fL (78.0-98.0); Mean Platelet Volume 7.3 fL (7.4-10.4); Platelet Count 122 thou/uL (130-400); RBC Distribution Width 13.7 % (11.5-14.5); Red Blood Cell (RBC) Count 3.47 mill/uL (4.70-6.10); White Blood Cell (WBC) Count 10.1 thou/uL (4.8-10.8)
[2018-05-14] MEDS ORDERED: Acetaminophen 500 MG TAB ONE (15:12)
[2018-05-14] MEDS ORDERED: cefTRIAXone\\ROCEPHIN 2 GM in Sodium Chloride 0.9% 100 ML IVPB ONE (15:30)
[2018-05-14] MEDS ORDERED: Azithromycin 500 MG VIAL ONE (15:37)
[2018-05-14 15:50] LABS: ALT (SGPT) 27 U/L (8-55); AST (SGOT) 21 U/L (5-34); Albumin 3.9 g/dL (3.4-4.8); Alkaline Phosphatase 96 U/L (40-150); Anion Gap 20 mmol/L (10-20); BUN (Urea Nitrogen) 21 mg/dL (8.4-25.7); Bilirubin, Total 0.4 mg/dL (0.2-1.2); Calc. Creatinine Clearance 0 mL/min (70-130); Calcium 8.1 mg/dL (7.8-10.44); Carbon Dioxide 17 mmol/L (23-31); Chloride 103 mmol/L (98-107); Estimated GFR-MDRD 36; Globulin 3.2 g/dL (2.4-3.5); Glucose 214 mg/dL (80-115); Potassium 4.4 mmol/L (3.5-5.1); Protein, Total 7.1 g/dL (5.8-8.1); Sodium 136 mmol/L (136-145)
--- NOTE | 2018-05-14 15:56 | RAD ---
SINGLE VIEW OF THE CHEST: Comparison: 01-15-18 History: Sepsis, shortness of breath, cough for one week. FINDINGS: Single view of the chest show an enlarged cardiomediastinal silhouette. There are multifocal opacitie s projecting over the right lung. These appear to be in the right upper and lower lobes. No pleural e ffusion is seen. IMPRESSION: Right sided pneumonia. POS: [facility]
[2018-05-14 16:56] LABS: Bilirubin Small (Negative); Blood, Urine Moderate (Negative); Clarity CLOUDY (Clear); Glucose, Urine (Dipstick) Negative (Negative); Leukocyte Moderate (Negative); Nitrite Negative (Negative); Protein, Urine (Dipstick) 30 mg/dL (Neg-Trace); Specific Gravity, Urine 1.024 (1.002-1.036)
[2018-05-14] MEDS ORDERED: Sodium Chloride 0.9% 1,000 ML IV SCH ×3 (17:00→21:35)
[2018-05-14 17:07] LABS: Pathc Cast-AUWi Flag 7.99 (0-2.49)
[2018-05-14] MEDS ORDERED: Ondansetron HCl/PF 4 MG/2 ML Vial IVP PRN (17:09)
[2018-05-14] MEDS ORDERED: Acetaminophen 325 MG TAB PO PRN (17:09)
[2018-05-14] MEDS ORDERED: Ondansetron ODT 4 MG TAB PO PRN (17:09)
[2018-05-14] MEDS ORDERED: Docusate 100 MG CAP PO PRN (17:09)
[2018-05-14 17:22] LABS: Bacteria/HPF Rare-Few HPF (None Seen); Manual Microscopic Reviewed? No Path Casts Seen; Renal Epithelial None Seen HPF (0-3); Transitional Epithelial NONE SEEN HPF (0-3)
[2018-05-14] MEDS ORDERED: HumaLOG 300 UNITS/3 ML VIAL SC PRN ×2 (17:24)
[2018-05-14] MEDS ORDERED: Dextrose 50% Abboject 50 ML SYRINGE SLOW IVP PRN (17:24)
[2018-05-14] MEDS ORDERED: Dextrose 5% in Water 1,000 ML IV PRN (17:24)
[2018-05-14] MEDS ORDERED: traMADol HCl 50 MG TAB ONE (17:32)
[2018-05-14 18:36] VITALS: BMI 35.2
--- NOTE | 2018-05-14 18:36 | PDOC.FPRHP ---
- History of Present Illness Chief Complaint: shortness of breath History of Present Illness: 63 yo HM pmhx signficant for asthma, T2DM, HTN, and HLD p/w acute onset of cough , shaking chills, and shortness of breath since he woke up around noon today. Cough was productive of yellowish sputum. States that he was feeling fine prior to that and in his normal state of health yesterday. He checked his BP which was low at home and called his doctor who instructed him to go to ER. Denies any associated CP, dysuria, rashes, night sweats, or joint pain. Of note, patient was recently admitted to our service at the end of December with chronic cholecystitis that required a laprascopic cholecystectomy. Intraoperatively, his liver was biopsied, which showed cirrhosis presumed 2/2 fatty liver disease. Additionally, on review of records, patient was evaluated in this ER 2 days ago for acute abdominal pain with negative CT. ED Course: Borderline hypotensive and tachycardic on initial ER presentation. Bolused 2L IVF and given IV Rocephin and Azithromycin. - Allergies/Adverse Reactions Allergies Allergy/AdvReac Type Severity Reaction Status Date / Time oxycodone HCl Allergy Verified 05/15/18 03:40 [From OxyContin] - Home Medications Medication Instructions Recorded Confirmed Type traMADol HCl [Tramadol HCl] 50 mg PO BID PRN 02/12/18 05/15/18 History Atorvastatin Calcium 40 mg PO HS 03/15/18 05/15/18 History Gabapentin 1 tab PO BID 03/15/18 05/15/18 History Linaclotide [Linzess] 1 tab PO HS 03/15/18 05/15/18 History Tamsulosin HCl [Flomax] 0.4 mg PO BID 03/15/18 05/15/18 History metFORMIN HCl [Metformin HCl] 1 tab PO BID 03/15/18 05/15/18 History Fluticasone/Salmeterol [Advair 1 inh IH BID 03/16/18 05/15/18 History Diskus 250/50] Cefdinir [Omnicef] 300 mg PO BID #8 cap 05/17/18 Rx Furosemide [Lasix] 20 mg PO DAILY #30 tab 05/17/18 Rx Vancomycin HCl [First Vancomycin] 125 mg PO Q6HR 8 Days #160 ml 05/17/18 Rx - History PMHx: 1) Steatohepatitis with cirrhosis 2) T2DM 3) HTN 4) HLD 5) Asthma 6) H/o BPH 7) H/o chronic LBP 2/w herniated disc 8) Diastolic CHF PSHx: 1) lap cholecystectomy w/ cholangiogram and liver biopsy (01/21/18) 2) ventral hernia repair 3) R hip replacements x 2 4) B/l elbow and wrist surgeries 5) Green light laser vaporization with TURP FHx: Noncontributory Social: Negative x 3, former smoker 25 yrs ago (3 PY); with 5 children , currently lives with his sister. - Review of Systems General: reports: fever/chills. denies: weight/appetite/sleep changes Eyes: denies: eye pain, vision changes ENT: denies: nasal congestion, rhinorrhea Respiratory: reports: cough, shortness of breath Cardiovascular: denies: chest pain, palpitation Gastrointestinal: denies: nausea, vomiting, diarrhea, constipation Genitourinary: denies: incontinence, dysuria Skin: denies: rashes, lesions Musculoskeletal: denies: pain, tenderness Neurological: denies: numbness, syncope Psychological: denies: anxiety, depression - Vital signs BP:110/67 HR: 106 RR: 18 Tmax: 100.8 Pox: 94% on 2L Wt: 100.7 kg - Physical Exam Constitutional: NAD, awake, alert and oriented, other (rigors noted) HEENT: normocephalic and atraumatic, PERRLA, EOMI, no scleral icterus, grossly normal hearing, other (mucous membranes dry) Neck: supple, trachea midline Heart: RRR, normal S1/S2, no murmurs/rubs/gallops, pulses present, other (2+ pitting edema b/l) Lungs: no respiratory distress, no wheezing, no retractions (mild scattered rales right lung), other Abdomen: soft, non-tender, bowel sounds present (distended, possible fluid wave) , no hernias, other (distended) Musculoskeletal: normal structure, normal tone Neurological: no focal deficit, CN II-XII intact, normal sensation Skin: no rash/lesions, good turgor Heme/Lymphatic: no unusual bruising or bleeding, no purpura, no petechia Psychiatric: normal mood and affect, good judgment and insight, intact recent and remote memory FMR H&P: Results - Labs Result Diagrams: 05/15/18 03:28 05/16/18 03:37 Lab results: WBC 7.5 thou/uL (4.8-10.8) 05/13/18 00:01 Hgb 11.2 g/dL (14.0-18.0) L 05/13/18 00:01 Hct 33.7 % (42.0-52.0) L 05/13/18 00:01 MCV 87.6 fL (78.0-98.0) 05/13/18 00:01 Plt Count 129 thou/uL (130-400) L 05/13/18 00:01 Neutrophils % 68.4 % (42.0-75.0) 05/13/18 00:01 Sodium 140 mmol/L (136-145) 05/12/18 23:59 Potassium 4.2 mmol/L (3.5-5.1) 05/12/18 23:59 Chloride 101 mmol/L (98-107) 05/12/18 23:59 Carbon Dioxide 27 mmol/L (23-31) 05/12/18 23:59 BUN 12 mg/dL (8.4-25.7) 05/12/18 23:59 Creatinine 0.98 mg/dL (0.6-1.3) 05/12/18 23:59 Glucose 102 mg/dL (80-115) 05/12/18 23:59 Calcium 9.5 mg/dL (7.8-10.44) 05/12/18 23:59 Total Bilirubin 0.4 mg/dL (0.2-1.2) 05/12/18 23:59 AST 26 U/L (5-34) 05/12/18 23:59 ALT 35 U/L (8-55) 05/12/18 23:59 Alkaline Phosphatase 112 U/L (40-150) 05/12/18 23:59 CK-MB (CK-2) 0.7 ng/mL (0-6.6) 05/12/18 23:59 Serum Total Protein 7.9 g/dL (5.8-8.1) 05/12/18 23:59 Albumin 4.3 g/dL (3.4-4.8) 05/12/18 23:59 Lipase 10 U/L (8-78) 05/12/18 23:59 Urine Ketones Negative mg/dL (Negative) 05/12/18 23:30 Urine Blood Small (Negative) H 05/12/18 23:30 Urine Nitrite Negative (Negative) 05/12/18 23:30 Ur Leukocyte Esterase Small (Negative) H 05/12/18 23:30 Urine RBC 4-6 HPF (0-3) 05/12/18 23:30 Urine WBC 4-6 HPF (0-3) H 05/12/18 23:30 Ur Squamous Epith Cells None Seen HPF (0-3) 05/12/18 23:30 Urine Bacteria None Seen HPF (None Seen) 05/12/18 23:30 - EKG Interpretation EKG: Sinus tachycardia FMR H&P: A/P - Problem List (1) Cirrhosis Status: Chronic Code(s): K74.60 - UNSPECIFIED CIRRHOSIS OF LIVER (2) HLD (hyperlipidemia) Status: Chronic Code(s): E78.5 - HYPERLIPIDEMIA, UNSPECIFIED (3) Diastolic CHF Status: Chronic Code(s): I50.30 - UNSPECIFIED DIASTOLIC (CONGESTIVE) HEART FAILURE (4) Sepsis due to pneumonia Status: Resolved Code(s): J18.9 - PNEUMONIA, UNSPECIFIED ORGANISM; A41.9 - SEPSIS, UNSPECIFIED ORGANISM Comment: Severe (5) Community acquired bacterial pneumonia Status: Acute Code(s): J15.9 - UNSPECIFIED BACTERIAL PNEUMONIA (6) HTN (hypertension) Status: Chronic Code(s): I10 - ESSENTIAL (PRIMARY) HYPERTENSION (7) JAZMYN (acute kidney injury) Status: Resolved Code(s): N17.9 - ACUTE KIDNEY FAILURE, UNSPECIFIED (8) Lactic acidosis Status: Resolved Code(s): E87.2 - ACIDOSIS (9) DMII (diabetes mellitus, type 2) Status: Chronic - Plan 63 yo M with: 1) Severe sepsis 2/2 #2: Admit to IMCU. Continue IVF rescusitation of 30mL/kg. Monitor VSS, strict I's and O's. Abx given in ER. Blood and urine cxs pending. 2) R multifocal community acquired PNA: continuing IV azithromycin and Rocephin , can r/p CXR and add additional coverage if worsening. Prn O2. 3) Lactic acidosis: trending 4) JAZMYN on CKDII: Likely pre-renal, pt appeared dry with hyaline casts in urine. Recheck creatinine in AM after IVF resuscitation. 5) Possible UTI: asymptomatic, Rocephin should cover while pending cultures 6) Cirrhosis: 2/2 longstanding fatty liver disease, recheck CMP in AM. Pt does not require diuretics or lactulose at this time. Can resume home vitamin E. 7) T2DM: Non-insulin dependent. Hold metformin; SSI, accuchecks AC/HS or more frequently if hypo or hyper -glycemic 8) HTN: hold home BP medications while acutely hypotensive 9) HLD: cont. home statin 10) Asthma: prn duonebs 11) Chronic LBP: Home [place] prn 12) Diastolic dysfunction: seen on recent echo, does not require diuretics or O2 at baseline; monitor for volume overload. No evidence of demand ischemia at this point. Disposition/LOS: Will likely be able to be discharged to home after 2-3 midnights.
[2018-05-14] MEDS ORDERED: traMADol HCl 50 MG TAB PO PRN (19:11)
[2018-05-14 19:19] LABS: Lactic Acid 4.8 mmol/L (0.5-2.2)
[2018-05-14 20:44] LABS: Troponin I 0.017 ng/mL (< 0.028)
[2018-05-14 20:59] LABS: Actual Bicarbonate (HCO3a) 16.6 mEq/L (22-28); Base Excess (BEa) -7.5 mEq/L (-2.0 to +3.0); CO2 Tension 28.8 mmHg (35.0-45.0); O2 Tension (PaO2) 60.8 mmHg (> 80.0); pH, Arterial 7.38 (7.35-7.45)
[2018-05-14 21:00] LABS: Puncture Site RRAD
[2018-05-14 21:13] LABS: Troponin I 0.012 ng/mL (< 0.028)
[2018-05-14] MEDS: Atorvastatin Calcium 40 MG TAB PO SCH (21:34)
--- NOTE | 2018-05-14 21:40 | PDOC.EVN ---
Event Note - Event Note Event Note: Called by nurse to patient's bedside as patient was tachycardic, and tachypnic and his oxygen saturation decreased from 98% to 94% on 3L. Evaluated the patient and reviewed the chart. His leading diagnosis is sepsis 2/2 pneumonia. BNP was 209 which is elevated from previous BNP of <10, troponin was negative, D -dimer was mildly elevated as suspected in sepsis. His lactic acid has improved with fluid resuscitation. ABG pH 7.38. Fluids were stopped for just over 1 hour and tachypenia improved. Will decrease fluid rate from 200NS to 100NS and continue to closely monitor patient and f/u with lactic acid in 3 hours. Consider adding vancomycin renally dosed if patient does not improve and consider VQ scan if patient does not improve, however hypoxia and tachypnea likely 2/2 pneumonia and volume overload.
[2018-05-15] MEDS ORDERED: Furosemide 20 MG/2 ML VIAL SLOW IVP SCH ×2 (00:30→13:00)
[2018-05-15] MEDS ORDERED: Sodium Chloride 0.9% 500 ML IV SCH (01:30)
[2018-05-15] MEDS ORDERED: VANCOMYCIN IVPB PRN (03:00)
[2018-05-15] MEDS ORDERED: Vancomycin HCl 1.5 GM in Sodium Chloride 0.9% 250 ML 300 ML IVPB SCH (03:00)
[2018-05-15 04:14] LABS: Lactic Acid 2.2 mmol/L (0.5-2.2)
[2018-05-15 04:16] LABS: ALT (SGPT) 23 U/L (8-55); AST (SGOT) 19 U/L (5-34); Albumin 3.6 g/dL (3.4-4.8); Alkaline Phosphatase 87 U/L (40-150); Anion Gap 16 mmol/L (10-20); BUN (Urea Nitrogen) 17 mg/dL (8.4-25.7); Bilirubin, Total 0.6 mg/dL (0.2-1.2); Calc. Creatinine Clearance 81 mL/min (70-130); Calcium 7.6 mg/dL (7.8-10.44); Carbon Dioxide 20 mmol/L (23-31); Chloride 108 mmol/L (98-107); Estimated GFR-MDRD 52; Glucose 136 mg/dL (80-115); Potassium 4.9 mmol/L (3.5-5.1); Protein, Total 6.6 g/dL (5.8-8.1); Sodium 139 mmol/L (136-145)
[2018-05-15 04:42] LABS: #Lymphocytes 1.2 thou/uL (1.20-3.40); #Monocytes 0.7 thou/uL (0.11-0.59); #Neutrophils 6.3 thou/uL (1.40-6.50); %Basophils 0.1 % (0.0-1.0); %Eosinophils 0.2 % (0.0-10.0); %Lymphocytes 14.5 % (21.0-51.0); %Monocytes 8.1 % (0.0-10.0); Hemoglobin 9.7 g/dL (14.0-18.0); Mean Corpuscular HGB CONC 32.8 g/dL (32.0-36.0); Mean Corpuscular Hemoglobin 29.1 pg (27.0-31.0); Mean Corpuscular Volume 88.6 fL (78.0-98.0); Mean Platelet Volume 7.1 fL (7.4-10.4); Platelet Count 115 thou/uL (130-400); RBC Distribution Width 13.9 % (11.5-14.5); Red Blood Cell (RBC) Count 3.32 mill/uL (4.70-6.10); White Blood Cell (WBC) Count 8.2 thou/uL (4.8-10.8)
[2018-05-15] MEDS ORDERED: Sodium Chloride 0.9% 1,000 ML IV SCH (04:56)
--- NOTE | 2018-05-15 07:15 | PDOC.FM ---
- Subjective Subjective: Patient reports he feels fairly well this morning. Still having the "shakes" but denies headache, dizziness, chest pain, abdominal pain, nausea, vomiting, and diarrhea. Feels like his breathing has improved. Was given a dose of Lasix overnight due to concerns over fluid overload. - Objective MAR Reviewed: Yes Vital Signs & Weight: Vital Signs (12 hours) Temp Pulse Resp BP Pulse Ox 05/15/18 06:32 98.8 F 05/15/18 05:02 99.9 F H 101 H 16 113/52 L 93 L 05/15/18 04:00 94 L 05/15/18 00:00 100.6 F H 116 H 24 H 142/63 H 94 L 05/14/18 23:30 106 H 20 96 05/14/18 21:00 99.3 F 104 H 25 H 93 L Weight Weight 101.236 kg I&O: 05/14/18 05/15/18 05/16/18 06:59 06:59 06:59 Intake Total 1900 Output Total 3075 Balance -1175 Result Diagrams: 05/15/18 03:28 05/15/18 03:28 Phys Exam - Physical Examination Constitutional: NAD HEENT: moist MMs, sclera anicteric, oral pharynx no lesions Neck: no nodes, no JVD, supple, full ROM Respiratory: no wheezing, no rales, no rhonchi Rales at right lung base Cardiovascular: no significant murmur, no rub Mildly tachycardic . Regular rhythm. Gastrointestinal: soft, non-tender, no distention, positive bowel sounds Musculoskeletal: no edema, pulses present Neurological: non-focal, normal sensation, moves all 4 limbs Slight tremor of right forearm Lymphatic: no nodes Psychiatric: normal affect, A&O x 3 Skin: no rash, normal turgor, cap refill <2 seconds Dx/Plan (1) Sepsis due to pneumonia Code(s): J18.9 - PNEUMONIA, UNSPECIFIED ORGANISM; A41.9 - SEPSIS, UNSPECIFIED ORGANISM Status: Acute Plan: Continue IV antibiotics and fluids. Lactic acid improved. Urine and blood cultures pending. Urine streptococcal antigen ordered. O2 prn. (2) Community acquired bacterial pneumonia Code(s): J15.9 - UNSPECIFIED BACTERIAL PNEUMONIA Status: Acute Plan: Continue iv antibiotics. Blood cultures pending. Urine streptococcal antigen added. Continue O2 as needed. Will consider addition of steroid. (3) JAZMYN (acute kidney injury) Code(s): N17.9 - ACUTE KIDNEY FAILURE, UNSPECIFIED Status: Acute Plan: Improving with iv fluids. Continue to monitor for improvement. (4) Lactic acidosis Code(s): E87.2 - ACIDOSIS Status: Resolved Plan: Resolved with iv fluids (5) Cirrhosis Code(s): K74.60 - UNSPECIFIED CIRRHOSIS OF LIVER Status: Chronic Qualifiers: Hepatic cirrhosis type: unspecified hepatic cirrhosis Ascites presence: without ascites Qualified Code(s): K74.60 - Unspecified cirrhosis of liver Plan: Suspected to be 2/2 fatty liver disease. Patient says he does not have a doctor for cirrhosis. Will dose meds appropriately based on liver function and monitor for symptoms of ascites and encephalopathy. Likely appropriate for outpatient GI follow up (6) DMII (diabetes mellitus, type 2) Status: Chronic Qualifiers: Diabetes mellitus fci insulin use: without salvage determiner use Diabetes mellitus complication status: with unspecified complications Qualified Code(s) : E11.8 - Type 2 diabetes mellitus with unspecified complications Plan: Takes only metformin at home which is being held due to lactic acidosis. Continue Accuchecks and sliding scale insulin until metformin can safely be restarted. (7) Diastolic CHF Code(s): I50.30 - UNSPECIFIED DIASTOLIC (CONGESTIVE) HEART FAILURE Status: Chronic Qualifiers: Heart failure chronicity: unspecified Qualified Code(s): I50.30 - Unspecified diastolic (congestive) heart failure Plan: Strict I&Os. Gentle iv fluids. Patient requires fluids due to sepsis, will need to be monitored for signs of hypervolemia. (8) Asthma Code(s): J45.909 - UNSPECIFIED ASTHMA, UNCOMPLICATED Status: Chronic Qualifiers: Asthma severity: unspecified severity Asthma persistence: unspecified Asthma complication type: uncomplicated Qualified Code(s): J45.909 - Unspecified asthma, uncomplicated Plan: Continue Dulera and Duonebs. Will consider addition of oral steroid as patient is likely to have worsening asthma symptoms with pneumonia. Steroids may need to be used cautiously in the setting of cirrhosis. (9) HLD (hyperlipidemia) Code(s): E78.5 - HYPERLIPIDEMIA, UNSPECIFIED Status: Chronic Plan: Continue home statin (10) HTN (hypertension) Code(s): I10 - ESSENTIAL (PRIMARY) HYPERTENSION Status: Chronic Plan: BP normal to low normal overnight. Does not appear to take BP meds at home. Will monitor and treat if indicated.
[2018-05-15] MEDS: Mometasone/Formoterol 120 PUFF INHALER INH SCH ×2 (08:13→18:41)
[2018-05-15] MEDS: Enoxaparin Sodium 30 MG/0.3 ML SYRINGE SC SCH (08:56)
[2018-05-15] MEDS ORDERED: predniSONE 20 MG TAB PO SCH (09:00)
[2018-05-15 10:02] LABS: Strep pneumo Urine Ag NEGATIVE (NEGATIVE)
--- NOTE | 2018-05-15 11:32 | ADD-HP ---
ADDENDUM Please see the history and physical done by the resident for which I concur. The patient was seen, e valuated, and examined with the resident. CHIEF COMPLAINT: Fever, chills, and cough. HISTORY OF PRESENT ILLNESS: This is a 63-year-old gentleman who was just in the hospital 2 days befo re in the emergency room for abdominal pain. Still had some abdominal pain and nausea, but then star jesus getting fever and chills, and chest x-ray showed a pretty significant right-sided pneumonia. He is hypotensive and is getting IV fluids, and had extremely high lactic acid level. He states he has had pneumonia once that was over 5 years ago. He is not really having much other respiratory symptom s. He has a little bit of sore throat and that is really about it. No exposures, nonsmoker. Not ho rribly short of breath. Really, his biggest complaint is the fever and chills. PAST MEDICAL HISTORY: All per the resident's history and physical for which I concur. PAST SURGICAL HISTORY: All per the resident's history and physical for which I concur. REVIEW OF SYSTEMS: All per the resident's history and physical for which I concur. CURRENT HOME MEDICATIONS: All per the resident's history and physical for which I concur. PHYSICAL EXAMINATION: GENERAL: Currently with rigors. He is afebrile right now. VITAL SIGNS: Blood pressures in the 120 systolically, diastolic in the 30s to 40s; pulse rate right at 100; does not appear to be breathing too fast. O2 is 94% on 2 liters. HEENT: Does have moist mucosa. LUNGS: Seems fairly clear chest. Does have right-sided rhonchi and some rales. CARDIOVASCULAR: Tachycardic. ABDOMEN: Positive bowel sounds. Minimum tenderness. No rebound or guarding. EXTREMITIES: Trace edema currently. LABORATORY DATA: Significant for a white count actually not being that bad at 10.1, hemoglobin is 10 .1 as well. Does have high lactic acid at 7.7. Glucose is 214. Creatinine is 1.93, which is up fro m 2 days previously, although he has had some elevated troponin in the past. Urine does have lot of white blood cells as well. Chest x-ray, right-sided pneumonia. ASSESSMENT: Pneumonia, right-sided. PLAN: He is currently on Rocephin and Zithromax. Cultures have been done. He will be on IV fluids, nasal cannula O2, Tylenol, Advil, etc. Make sure he is on Lovenox for deep venous thrombosis prophy laxis. I am going to put him on sliding scale insulin currently and going to hold off his home medic josse until we can get him feeling better obviously. Currently, I do not see any reason to think he i s going to decompensate , he seems fairly stable right now.
[2018-05-15] MEDS ORDERED: cefTRIAXone\\ROCEPHIN 2 GM in Sodium Chloride 0.9% 100 ML IVPB SCH (15:00)
[2018-05-15] MEDS ORDERED: Azithromycin 500 MG in Sodium Chloride 0.9% 250 ML 250 ML IVPB SCH (15:00)
[2018-05-15] MEDS: Spironolactone 25 MG TAB PO SCH (16:54)
--- NOTE | 2018-05-15 17:37 | CON ---
DATE OF CONSULTATION: 05/15/2018 SERVICE: Pulmonary Medicine. REASON FOR CONSULTATION: IMCU patient. HISTORY OF PRESENT ILLNESS: The patient is a 63-year-old male with past medical history significant for cirrhosis. This was identified when he underwent a cholecystectomy recently. Either way, he is in his usual state of health, but for the last week or so he has had increasing lower extremity swelling, belly swelling, and weight gain. He has been having increasing dyspnea with exertion. On the day of presentation, he ended up having some shortness of breath, and rigors that occurred when he stood up. This occurred shortly following a nap. He presented to the emergency department where chest x -ray had findings consistent with a possible pneumonia. He had been coughing up a little bit of pale yellow sputum. Overnight, he got 3 liters of fluid and started coughing up some pink tinged fluid. His fever profile has improved overnight. This morning; however, he remains with a little bit of shortness of breath and tremulous. Otherwise, there has been no interval change to his condition. PHYSICAL EXAMINATION: VITAL SIGNS: Currently afebrile with a T-max overnight of 100.6, pulse 101, blood pressure 116/73, respirations 24, saturation 97% on 4 liters nasal cannula. GENERAL: The patient is awake and alert, in no apparent distress. LUNGS: Bilateral crackles are present. There is slightly more predominantly displayed on the right. I do not appreciate rhonchi or prolonged expiratory phase or wheezing. HEART: Normal rate, regular. ABDOMEN: Soft, nontender, nondistended. He has shifting dullness. There is no rebound or guarding. Bowel sounds are present. MUSCULOSKELETAL: No cyanosis or clubbing. He has 2+ pitting in the bilateral lower extremities. NEUROLOGIC: Grossly nonfocal. LABORATORY DATA: WBC 8.2, hemoglobin 9.7, platelets 115,000. D-dimer 0.81. A pH of 7.38, pCO2 of 28, pO2 of 61, corresponding to saturation 92%. Creatinine down trending to 1.38. Basic metabolic profile, liver function studies are otherwise unremarkable. Lactate was 4.6, but it is down trending to 2.2. Ammonia level is normal. Troponin x2 are negative. Urinalysis is positive for white blood cells, leukocyte esterase, but negative for nitrites. Urine strep antigen is unremarkable. Blood cultures x2 and urine culture are negative. IMAGING: Chest x-ray demonstrates a right-sided infiltrate in the right upper lobe and the right middle lobe. So far as I could tell, these were not present on the CT scan that was done the prior day for his abdominal discomfort presentation to the emergency room. ASSESSMENT: 1. Acute hypoxic respiratory failure. 2. Cirrhosis with volume overload state. 3. Community-acquired pneumonia, possible. 4. Obstructive sleep apnea, recent diagnosis. DISCUSSION AND PLAN: We will discontinue our IV fluids. No more boluses will be provided. Since he is cleared to his infectious profile, at this point his blood pressures are firmed up nicely, we will start diuresing him. He will likely need to go out of the hospital on spironolactone and Lasix with a GI consultation to look into his cirrhosis issue. Pulmonary Critical Care will continue to follow along while the patient remains in this location. From my perspective; however, he is stable for transition out of the IMCU to the medical unit. 70 minutes have been devoted to this patient in various activities. I personally reviewed all imaging studies and laboratory data noted within this document. For fifty percent of this time, I was interacting with the patient at the bedside or coordinating care with the care team. For the remainder of the time I was immediately available to the patient in the hospital unit. PHONG
[2018-05-15] MEDS: Atorvastatin Calcium 40 MG TAB PO SCH (20:01)
[2018-05-16] MEDS ORDERED: Vancomycin HCl 1 GM in Premix Bag 1 BAG IVPB SCH (03:00)
[2018-05-16 05:20] LABS: Anion Gap 16 mmol/L (10-20); BUN (Urea Nitrogen) 8 mg/dL (8.4-25.7); Calc. Creatinine Clearance 121 mL/min (70-130); Carbon Dioxide 25 mmol/L (23-31); Chloride 105 mmol/L (98-107); Estimated GFR-MDRD 84; Glucose 104 mg/dL (80-115); Magnesium 1.1 mg/dL (1.6-2.6); Phosphorus 2.5 mg/dL (2.3-4.7); Potassium 3.7 mmol/L (3.5-5.1); Sodium 142 mmol/L (136-145)
--- NOTE | 2018-05-16 05:58 | PDOC.FM ---
- Subjective Subjective: Patient doing well this morning. Still has cough and dyspnea but states both are improving. - Objective MAR Reviewed: Yes Vital Signs & Weight: Vital Signs (12 hours) Temp Pulse Resp BP Pulse Ox 05/16/18 04:05 99.3 F 92 18 130/66 96 05/16/18 00:05 99.4 F 99 20 121/58 L 96 05/15/18 20:00 99.6 F 100 20 129/67 95 Weight Weight 101.236 kg I&O: 05/14/18 05/15/18 05/16/18 06:59 06:59 06:59 Intake Total 1900 1341 Output Total 3075 0150 Balance -3803 -1979 Result Diagrams: 05/15/18 03:28 05/16/18 03:37 Phys Exam - Physical Examination Constitutional: NAD HEENT: moist MMs, sclera anicteric, oral pharynx no lesions Neck: no nodes, no JVD, supple, full ROM Respiratory: no wheezing, no rhonchi Right basilar rales Cardiovascular: RRR, no significant murmur, no rub Gastrointestinal: soft, non-tender, no distention, positive bowel sounds Musculoskeletal: pulses present, edema present 1+ edema to mid-friend bilaterally Neurological: non-focal, normal sensation, moves all 4 limbs Lymphatic: no nodes Psychiatric: normal affect, A&O x 3 Skin: no rash, normal turgor, cap refill <2 seconds Dx/Plan (1) Sepsis due to pneumonia Code(s): J18.9 - PNEUMONIA, UNSPECIFIED ORGANISM; A41.9 - SEPSIS, UNSPECIFIED ORGANISM Status: Acute Plan: Hospital Day 2 - Improving - Urine and blood cultures pending. - Urine streptococcal negative - Continue Azithromycin and Rocephin - day 3 of 5 - Continue supplemental oxygen - Stable for transfer to medical floor - Dr. Francis, pulmonology, following. Appreciate his recommendations (2) Community acquired bacterial pneumonia Code(s): J15.9 - UNSPECIFIED BACTERIAL PNEUMONIA Status: Acute Plan: Continue iv antibiotics. Day 3 of 5. (3) Cirrhosis Code(s): K74.60 - UNSPECIFIED CIRRHOSIS OF LIVER Status: Chronic Qualifiers: Hepatic cirrhosis type: unspecified hepatic cirrhosis Ascites presence: without ascites Qualified Code(s): K74.60 - Unspecified cirrhosis of liver Plan: Suspected to be 2/2 fatty liver disease. - Initially fluid overloaded - now improved - Continue Lasix and spironolactone - Outpatient GI consultation (4) JAZMYN (acute kidney injury) Code(s): N17.9 - ACUTE KIDNEY FAILURE, UNSPECIFIED Status: Acute Plan: Resolved with iv fluids. (5) DMII (diabetes mellitus, type 2) Status: Chronic Qualifiers: Diabetes mellitus penitentiary insulin use: without termite control representative use Diabetes mellitus complication status: with unspecified complications Qualified Code(s) : E11.8 - Type 2 diabetes mellitus with unspecified complications Plan: Takes only metformin at home. Continue Accuchecks and sliding scale insulin. (6) Diastolic CHF Code(s): I50.30 - UNSPECIFIED DIASTOLIC (CONGESTIVE) HEART FAILURE Status: Chronic Qualifiers: Heart failure chronicity: unspecified Qualified Code(s): I50.30 - Unspecified diastolic (congestive) heart failure Plan: Patient was initially fluid overloaded but now improved and diuresing well. Continue Lasix and spironolactone (7) Asthma Code(s): J45.909 - UNSPECIFIED ASTHMA, UNCOMPLICATED Status: Chronic Qualifiers: Asthma severity: unspecified severity Asthma persistence: unspecified Asthma complication type: uncomplicated Qualified Code(s): J45.909 - Unspecified asthma, uncomplicated Plan: Continue Dulera and Duonebs. (8) HLD (hyperlipidemia) Code(s): E78.5 - HYPERLIPIDEMIA, UNSPECIFIED Status: Chronic Plan: Continue home statin (9) HTN (hypertension) Code(s): I10 - ESSENTIAL (PRIMARY) HYPERTENSION Status: Chronic Plan: BP stable. Does not appear to take BP meds at home. Will monitor and treat if indicated. (10) Lactic acidosis Code(s): E87.2 - ACIDOSIS Status: Resolved Plan: 12/25 #1. Now resolved
[2018-05-16] MEDS: Mometasone/Formoterol 120 PUFF INHALER INH SCH ×2 (07:41→18:44)
[2018-05-16] MEDS ORDERED: predniSONE 20 MG TAB PO SCH (08:00)
[2018-05-16] MEDS: Enoxaparin Sodium 30 MG/0.3 ML SYRINGE SC SCH (08:37)
[2018-05-16] MEDS: Spironolactone 25 MG TAB PO SCH ×2 (08:39→16:17)
[2018-05-16] MEDS ORDERED: Furosemide 20 MG/2 ML VIAL SLOW IVP SCH (09:00)
[2018-05-16] MEDS ORDERED: Potassium Chloride 20 MEQ TAB PO SCH (14:45)
--- NOTE | 2018-05-16 14:49 | ADD-PRG ---
DATE OF SERVICE: 05/16/2018 Please see the note from the Dr. Cortes, for which I agree. The patient was seen and evaluated, exa mined and discussed with the residents by bedside. Mr. Chase is drastically improving. He is diuresing well. Breathing is better and has having ju st some minor diarrhea problems, but in general is improving as far as his pneumonia goes and anticip ate continued improvement and will be able to sent him up to the floor and anticipate probable discha rge tomorrow if everything continues in this right direction.
[2018-05-16] MEDS ORDERED: Magnesium Sulfate 4 GM in Sodium Chloride 0.9% 250 ML 250 ML IVPB SCH (15:00)
[2018-05-16] MEDS ORDERED: Vancomycin HCl 25 MG/ML Oral PO SCH (15:00)
--- NOTE | 2018-05-16 16:52 | PRG ---
DATE OF SERVICE: 05/16/2018 SERVICE: Pulmonary Medicine. INTERVAL HISTORY: The patient is doing absolutely fantastic from a breathing standpoint. He has bee n weaned down to 1-1/2 liters nasal cannula. Denies any chest pain, nausea, vomiting, fevers or chil ls. He is tolerating p.o. His strength is improving significantly. PHYSICAL EXAMINATION: VITAL SIGNS: Afebrile currently with a T-max of 100.5 overnight. Pulse 95, blood pressure 127/42, r espirations 18, saturation 95% on 2 liters nasal cannula. GENERAL: The patient is awake, alert, in apparent distress. LUNGS: Decent air entry. Dependent crackles are minimal. HEART: Normal rate, regular. ABDOMEN: Soft. Nontender, nondistended. Bowel sounds are positive. MUSCULOSKELETAL: No cyanosis or clubbing. There is no pitting in the bilateral lower extremities. NEUROLOGIC: Grossly nonfocal. LABORATORY DATA: WBC 8.2, hemoglobin 9.7, platelets 115,000. Neutrophil count is 77%. Basic metabo lic profile is unremarkable. Magnesium is low at 1.1. Potassium 3.7, sodium is up trending to 142. C. diff antigen and toxin are positive. ASSESSMENT: 1. Severe sepsis. 2. Clostridium difficile colitis. 3. Pneumonia, possible. 4. Cirrhosis with volume overload state, improved. 5. Obstructive sleep apnea, DISCUSSION AND PLAN: The patient will be put on p.o. vancomycin: Pulmonary Critical Care. At this point. Antibiotics directed at lung issues can be discontinued after total duration of 7 days. He w ill need a repeat chest x-ray in the outpatient setting or sooner if the lung issues get worse. Magn esium and potassium will both be replaced today. Pulmonary this point, he has no further requiremen ts for inpatient Pulmonary or Critical Care opinion and I will sign off. Please call with additional questions or concerns moving forward.
--- NOTE | 2018-05-16 18:14 | ADD-PRG ---
DATE OF SERVICE: 05/15/2018 ADDENDUM Please see note from Dr. Cortes for which I agree. The patient was seen and evaluated and examined with the residents by bedside and discussed. Mr. Chase is doing better from a respiratory status after we diuresed him some last night. Got 3 liters off of him. It sounds like basically his blood pressure was low so we are giving him IV flui ds to keep his blood pressure up and that worsened his respiratory status. Was on home CPAP, I belie ve, for a while last night, but doing better currently. Vancomycin was added, so he is on azithromyc in and Rocephin, vancomycin currently, but is satting a little bit better, less tachycardic and tachy pneic than he was last night. Consider the plan is to continue same management with oxygen, IV antib iotics, IV fluids, and will watch him and keep him from getting volume overloaded.
[2018-05-16] MEDS: Vancomycin HCl 25 MG/ML Oral PO SCH ×2 (18:25→23:19)
[2018-05-16] MEDS: Cefdinir 300 MG CAP PO SCH (20:04)
[2018-05-16] MEDS: Atorvastatin Calcium 40 MG TAB PO SCH (20:04)
[2018-05-17] MEDS: Vancomycin HCl 25 MG/ML Oral PO SCH ×4 (05:27→23:19)
--- NOTE | 2018-05-17 06:18 | PDOC.FM ---
- Subjective Subjective: Rahul Chase seen at bedside this morning. He had no acute events overnight and he has no complaints this morning. He states that his abdominal pain is much improved compared to yesterday and he did not have rigors or fevers last night. He is feeling much better. States he is having decreased frequency of loose bowel movements since yesterday. - Objective MAR Reviewed: Yes Vital Signs & Weight: Vital Signs (12 hours) Temp Pulse Resp BP Pulse Ox 05/16/18 21:00 98.8 F 91 18 94 L 05/16/18 19:54 98.8 F 91 18 139/70 94 L 05/16/18 18:44 67 12 95 Weight Weight 92.334 kg I&O: 05/15/18 05/16/18 05/17/18 06:59 06:59 06:59 Intake Total 1900 1581 362 Output Total 3075 5075 175 Balance -1176 -2361 187 Result Diagrams: 05/15/18 03:28 05/16/18 03:37 <Travis Fitzgerald - Last Filed: 05/17/18 08:02> - Objective Vital Signs & Weight: Vital Signs (12 hours) Temp Pulse Resp BP Pulse Ox 05/17/18 08:10 98.6 F 88 16 96 05/17/18 07:18 98.6 F 88 16 146/79 H 96 Weight Weight 92.334 kg I&O: 05/16/18 05/17/18 05/18/18 06:59 06:59 06:59 Intake Total 1581 362 Output Total 5075 175 Balance -3494 187 Result Diagrams: 05/15/18 03:28 05/16/18 03:37 <Sundar Kessler - Last Filed: 05/17/18 11:10> Phys Exam - Physical Examination Constitutional: NAD HEENT: moist MMs, sclera anicteric Neck: no JVD, supple, full ROM Respiratory: no wheezing, no rales, no rhonchi, clear to auscultation bilateral Cardiovascular: RRR, no significant murmur Gastrointestinal: soft, non-tender, no distention, positive bowel sounds Musculoskeletal: no edema, pulses present Neurological: non-focal, normal sensation Psychiatric: normal affect, A&O x 3 Skin: no rash <Travis Fitzgerald - Last Filed: 05/17/18 08:02> Dx/Plan (1) Sepsis due to pneumonia Code(s): J18.9 - PNEUMONIA, UNSPECIFIED ORGANISM; A41.9 - SEPSIS, UNSPECIFIED ORGANISM Status: Resolved (2) Community acquired bacterial pneumonia Code(s): J15.9 - UNSPECIFIED BACTERIAL PNEUMONIA Status: Acute (3) C. difficile colitis Status: Acute (4) JAZMYN (acute kidney injury) Code(s): N17.9 - ACUTE KIDNEY FAILURE, UNSPECIFIED Status: Resolved (5) Cirrhosis Code(s): K74.60 - UNSPECIFIED CIRRHOSIS OF LIVER Status: Chronic QualifierTitle: Hepatic cirrhosis type: unspecified hepatic cirrhosis Ascites presence: without ascites Qualified Code(s): K74.60 - Unspecified cirrhosis of liver (6) DMII (diabetes mellitus, type 2) Status: Chronic QualifierTitle: Diabetes mellitus detention insulin use: without detention use Diabetes mellitus complication status: with unspecified complications Qualified Code(s): E11.8 - Type 2 diabetes mellitus with unspecified complications (7) Asthma Code(s): J45.909 - UNSPECIFIED ASTHMA, UNCOMPLICATED Status: Chronic QualifierTitle: Asthma severity: unspecified severity Asthma persistence : unspecified Asthma complication type: uncomplicated Qualified Code(s): J45.909 - Unspecified asthma, uncomplicated (8) Diastolic CHF Code(s): I50.30 - UNSPECIFIED DIASTOLIC (CONGESTIVE) HEART FAILURE Status: Chronic QualifierTitle: Heart failure chronicity: unspecified Qualified Code(s): I50.30 - Unspecified diastolic (congestive) heart failure (9) HLD (hyperlipidemia) Code(s): E78.5 - HYPERLIPIDEMIA, UNSPECIFIED Status: Chronic (10) HTN (hypertension) Code(s): I10 - ESSENTIAL (PRIMARY) HYPERTENSION Status: Chronic - Plan Plan: 1) Sepsis 2/2 Community Acquired Pneumonia: sepsis now resolved - Hospital Day 2 - Improving - Urine and blood cultures negative to date - Urine streptococcal negative - Continue Azithromycin and Rocephin - day 4 of 5 - Continue supplemental oxygen - transferred to medical floor on 05/16 - Dr. Francis, pulmonology, following. Appreciate his recommendations 2) C Dif Colitis: - Continue PO vancomycin 3) Cirrhosis: - Suspected to be 2/2 fatty liver disease. - Initially fluid overloaded - now improved - Continue Lasix and spironolactone - Outpatient GI consultation 4) JAZMYN - resolved with IV fluids 5) DM2: - takes only metformin at home. Continue SSI and Accuchecks 6) CHF - Continue home meds, diuresing well 7) CAD - Continue home meds 8) Asthma - Continue home meds <Travis Fitzgerald - Last Filed: 05/17/18 08:02> Attending Addendum - Attending Addendum Date/Time: 05/17/18 [id number] I personally evaluated the patient and discussed the management with Dr. Fitzgerald I agree with the History, Examination, Assessment and Plan documented above with any addition or exceptions noted below.Patient saturating well on room air stable to dismiss home continued PNA treatment and coverage C. Dificile colitis patient with formed stool this am. Rec f/u outpatient C. Dif toxin few weeks post treatment. <Sundar Kessler - Last Filed: 05/17/18 11:10>
[2018-05-17] MEDS: Mometasone/Formoterol 120 PUFF INHALER INH SCH ×2 (06:56→19:44)
[2018-05-17] MEDS: Furosemide 20 MG TAB PO SCH (08:13)
[2018-05-17] MEDS: Enoxaparin Sodium 30 MG/0.3 ML SYRINGE SC SCH (08:13)
[2018-05-17] MEDS: Cefdinir 300 MG CAP PO SCH ×2 (08:13→20:06)
[2018-05-17] MEDS: Azithromycin 250 MG TAB PO SCH (08:13)
[2018-05-17] MEDS: Spironolactone 25 MG TAB PO SCH ×2 (08:14→17:23)
--- NOTE | 2018-05-17 08:49 | PRG ---
DATE OF SERVICE: 05/17/2018 The patient is doing well, has no complaints. PHYSICAL EXAMINATION: VITAL SIGNS: Temperature 98.6, pulse 88, respiration 16, O2 sat 96%, blood pressure 146/79. HEENT: Unremarkable. NECK: No JVD. LUNGS: Clear without wheezing or rhonchi. CARDIAC: S1, S2 regular, without murmur. ABDOMEN: Soft, obese, nontender, nondistended. EXTREMITIES: No clubbing, cyanosis or edema. LABORATORY DATA: No labs were done today. ASSESSMENT: 1. Sepsis. 2. Clostridium difficile colitis. 3. Doubt this is pneumonia. 4. Obstructive sleep apnea. PLAN: The patient is probably safe to be discharged on oral antibiotic therapy. No further recommen dations at this time. We will sign off.
--- NOTE | 2018-05-17 13:45 | DIS-2 ---
DATE OF ADMISSION: 05/14/2018 DATE OF DISCHARGE: 05/17/2018 RESIDENT: Travis Fitzgerald M.D. ADMITTING ATTENDING: Dr. Osito Dee DISCHARGE ATTENDING: Dr. Sundar Kessler CONSULTATIONS Pulmonology, Dr. Eddie Francis on 05/14/2018. PROCEDURES: 1. Chest x-ray on 05/14/2018. Impression; right-sided pneumonia. 2. Blood culture x2 taken from 05/14/2018, no growth at 48 hours. 3. Urine culture taken at 05/14/2018, no growth at 48 hours. 4. Clostridium difficile antigen toxin positive. PRIMARY DIAGNOSIS: Sepsis secondary to community-acquired pneumonia. SECONDARY DIAGNOSES: 1. Clostridium difficile colitis. 2. Diastolic congestive heart failure. 3. Hepatic steatosis. 4. Type 2 diabetes mellitus. 5. Hypertension. 6. Acute kidney injury. 7. Cirrhosis. 8. Gastroesophageal reflux disease. DISCHARGE MEDICATIONS: Resume home medications includin. Tramadol 50 mg p.o. b.i.d. p.r.n. 2. Metformin 1000 mg p.o. b.i.d. 3. Gabapentin 600 mg p.o. b.i.d. 4. Flomax 0.4 mg p.o. b.i.d. 5. Linaclotide 290 mcg p.o. at bedtime. 6. Atorvastatin calcium 40 mg p.o. at bedtime. 7. Advair Diskus 20/550 1 INH b.i.d. NEW HOME MEDICATIONS: 1. Cefdinir 300 mg p.o. b.i.d. 2. Vancomycin HCL 125 mg p.o. q.6 hours for 8 days. HISTORY OF PRESENT ILLNESS/HOSPITAL COURSE: Rahul Chase is a 63-year-old gentleman who was just in the hospital 2 days before coming to the emergency room today for abdominal pain. He still was having abdominal pain and nausea for the last 2 days. He started to get fever or chills. A chest x-ray showed a significant right-sided pneumonia. He was hypotensive in the ED and was started on fluids. He had an elevated lactic acid level at 7.7. The patient states that he had pneumonia once, but that was over 5 years ago. He has no exposures. He does not smoke. The patient's biggest complaint was fever and chills. The patient was started on Rocephin and Zithromax. Cultures were taken , urine and blood. He was given IV fluids, nasal cannula, Tylenol and Advil. He was put on sliding scale insulin for his diabetes. The patient's initial labs were white blood cell count 10.1, hemoglobin 10.1, hematocrit 30.8, platelets 122. The patient's initial lactic acid was 7.7, creatinine was 1.93, and urine was not a clean catch. Urine strep pneumonia antigen was negative Mr. Murdock improved from a respiratory status after some diuresis removing 3 liters off of him. The patient's blood pressure was low initially, IV fluids were given to increase blood pressure which worsened his respiratory status initially, but the patient improved after some Lasix was given. Vancomycin was added, at one point he was on azithromycin, Rocephin and vancomycin. PO Vancomycin was added because the patient was positive for C. diff. He stated that after the first night of his admission his abdomen became distended and he started having some diarrhea. Urine and blood cultures were eventually negative after 48 hours. The patient is appropriate for outpatient GI referral and follow up for cirrhosis. The patient to continue on p.o. vancomycin for at least 7 days, it was recommended that he get a repeat chest x-ray as an outpatient and a repeat C. difficile test. The patient's respiratory status improved on 05/17/2018 and he was cleared for discharge by both Pulmonology and the Medicine Team on 05/17/2015 with instructions to complete regimen for treatment of C. difficile colitis and for treatment of pneumonia and to follow up with primary care provider as well as GI doctor as an outpatient. Patient was not able to leave the hospital until the morning after discharge. DISPOSITION: Stable. The patient should do well if he continues with antibiotics and follows up with sports intern and primary care provider. DISCHARGE INSTRUCTIONS: 1. Diet: Heart healthy. 2. Activity: As tolerated. 3. Followup: Follow up with primary care provider and GI within 1-2 weeks. Patient discharged pending placement on April [facility]
[2018-05-17] MEDS: Atorvastatin Calcium 40 MG TAB PO SCH (20:06)
[2018-05-18] MEDS: Vancomycin HCl 25 MG/ML Oral PO SCH (05:44)
[2018-05-18] MEDS: Mometasone/Formoterol 120 PUFF INHALER INH SCH (06:21)
[2018-05-18 07:53] VITALS: BP 134/88; TEMP 98.7
[2018-05-18] MEDS: Furosemide 20 MG TAB PO SCH (08:24)
[2018-05-18] MEDS: Spironolactone 25 MG TAB PO SCH (08:24)
[2018-05-18] MEDS: Cefdinir 300 MG CAP PO SCH (08:24)
[2018-05-18] MEDS: Enoxaparin Sodium 30 MG/0.3 ML SYRINGE SC SCH (08:24)
[2018-05-18] MEDS: Azithromycin 250 MG TAB PO SCH (08:24)
== END 2018-05-18 09:12 | disposition home or self-care (01) | DRG 871 ==
LOC: ERS 14:46 → IMCU/EMU 17:12 → T4-B 05-16 10:31
PROVIDERS: ADMIT Student in an Organized Health Care Education/Training Program; ATTEND Student in an Organized Health Care Education/Training Program
DX: A41.9 Sepsis, unspecified organism (principal); J96.01 Acute respiratory failure with hypoxia; J15.9 Unspecified bacterial pneumonia; E87.2 Acidosis; I50.32 Chronic diastolic (congestive) heart failure; N17.9 Acute kidney failure, unspecified; E78.5 Hyperlipidemia, unspecified; I11.0 Hypertensive heart disease with heart failure; B96.89 Other specified bacterial agents as the cause of diseases classified elsewhere; G47.33 Obstructive sleep apnea (adult) (pediatric); K74.60 Unspecified cirrhosis of liver; R65.20 Severe sepsis without septic shock; E88.89 Other specified metabolic disorders; K21.9 Gastro-esophageal reflux disease without esophagitis
CPT/HCPCS: 36415; 36416; 51701; 71045; 74176; 80048; 80053; 81003; 81015; 82140; 82553; 82805; 83605; 83690; 83735; 83880; 84100; 84484; 85025; 85379; 87040; 87086; 87324; 87449; 87493; 87899; 93005; 94640; 94660; 94760; 96361; 96365; 96374; 96375; J0456; J0696; J1650; J1885; J1940; J2270; J3010; J3370; J3475; J7050; J7506; J7620; Q0162

== ENCOUNTER 2018-05-26 12:13 | Emergency (ER) | payer MEDICARE, MEDICAID ==
[2018-05-26] MEDS ORDERED: Ketorolac Tromethamine 30 MG/ML VIAL ONE (13:33)
[2018-05-26 13:46] LABS: #Eosinphils 0.1 thou/uL (0.0-0.7); #Lymphocytes 1.8 thou/uL (1.20-3.40); #Monocytes 0.9 thou/uL (0.11-0.59); %Basophils 0.4 % (0.0-1.0); %Eosinophils 1.6 % (0.0-10.0); %Lymphocytes 20.3 % (21.0-51.0); %Monocytes 9.8 % (0.0-10.0); %Neutrophils 67.8 % (42.0-75.0); Hemoglobin 11.3 g/dL (14.0-18.0); Mean Corpuscular HGB CONC 33.7 g/dL (32.0-36.0); Mean Corpuscular Hemoglobin 29.4 pg (27.0-31.0); Mean Corpuscular Volume 87.2 fL (78.0-98.0); Mean Platelet Volume 6.5 fL (7.4-10.4); Platelet Count 159 thou/uL (130-400); RBC Distribution Width 13.6 % (11.5-14.5); Red Blood Cell (RBC) Count 3.84 mill/uL (4.70-6.10); White Blood Cell (WBC) Count 8.8 thou/uL (4.8-10.8)
[2018-05-26 14:05] LABS: ALT (SGPT) 38 U/L (8-55); AST (SGOT) 33 U/L (5-34); Alkaline Phosphatase 127 U/L (40-150); Anion Gap 13 mmol/L (10-20); BUN (Urea Nitrogen) 18 mg/dL (8.4-25.7); Bilirubin, Total 0.5 mg/dL (0.2-1.2); Calc. Creatinine Clearance 0 mL/min (70-130); Calcium 9.4 mg/dL (7.8-10.44); Carbon Dioxide 28 mmol/L (23-31); Chloride 100 mmol/L (98-107); Estimated GFR-MDRD 49; Globulin 3.9 g/dL (2.4-3.5); Glucose 108 mg/dL (80-115); Protein, Total 7.9 g/dL (5.8-8.1); Sodium 137 mmol/L (136-145)
--- NOTE | 2018-05-26 14:09 | RAD ---
LUMBAR SPINE 3 VIEWS: Date: 05/26/18 HISTORY: Bilateral leg weakness, back pain. FINDINGS/IMPRESSION: No fracture, subluxation, or bony destruction is seen. Minimal degenerative change are noted. POS: [facility]
--- NOTE | 2018-05-26 14:10 | RAD ---
THORACIC SPINE 3 VIEWS: Date: 05/26/18 HISTORY: Back pain. FINDINGS/IMPRESSION: No fracture, subluxation, or bony destruction is seen. POS: [facility]
--- NOTE | 2018-05-29 15:11 | EKG ---
Test Reason : Blood Pressure : / mmHG Vent. Rate : 076 BPM Atrial Rate : 076 BPM P-R Int : 182 ms QRS Dur : 084 ms QT Int : 380 ms P-R-T Axes : 007 000 033 degrees QTc Int : 427 ms Normal sinus rhythm Normal ECG Confirmed by MELONIE DEVLIN D.O. ([id number]), communications editor RONNA TAPIA ([id number]) on 05/29/2018 3:11:41 PM Referred By: Confirmed By:MELONIE DEVLIN D.O.
== END 2018-05-26 15:59 | disposition home or self-care (01) ==
LOC: ERS 12:13
DX: M54.5 Low back pain (principal); M54.6 Pain in thoracic spine; M79.604 Pain in right leg; M79.605 Pain in left leg; I10 Essential (primary) hypertension; E78.5 Hyperlipidemia, unspecified; J45.909 Unspecified asthma, uncomplicated; Z79.899 Other long term (current) drug therapy; Z79.82 Long term (current) use of aspirin; Z79.84 Long term (current) use of oral hypoglycemic drugs
CPT/HCPCS: 36415; 72072; 72100; 80053; 85025; 93005; 96372; J1885

== ENCOUNTER 2018-07-04 09:43 | Emergency (ER) | payer MEDICARE, MEDICAID ==
[2018-07-04 10:18] LABS: #Eosinphils 0.2 thou/uL (0.0-0.7); #Lymphocytes 1.8 thou/uL (1.20-3.40); #Monocytes 0.5 thou/uL (0.11-0.59); #Neutrophils 6.7 thou/uL (1.40-6.50); %Basophils 0.2 % (0.0-1.0); %Lymphocytes 19.4 % (21.0-51.0); %Monocytes 5.2 % (0.0-10.0); %Neutrophils 73.2 % (42.0-75.0); Hemoglobin 12.6 g/dL (14.0-18.0); Mean Corpuscular HGB CONC 32.6 g/dL (32.0-36.0); Mean Corpuscular Hemoglobin 28.2 pg (27.0-31.0); Mean Corpuscular Volume 86.4 fL (78.0-98.0); Mean Platelet Volume 7.2 fL (7.4-10.4); Platelet Count 130 thou/uL (130-400); RBC Distribution Width 14.3 % (11.5-14.5); Red Blood Cell (RBC) Count 4.49 mill/uL (4.70-6.10); White Blood Cell (WBC) Count 9.1 thou/uL (4.8-10.8)
[2018-07-04 10:28] LABS: INR-International Normal Ratio 1.1; Prothrombin Time 14.2 SEC (12.0-14.7)
[2018-07-04 10:29] LABS: PTT 36.4 SEC (22.9-36.1)
[2018-07-04 10:42] LABS: ALT (SGPT) 35 U/L (8-55); AST (SGOT) 31 U/L (5-34); Albumin 4.2 g/dL (3.4-4.8); Alkaline Phosphatase 95 U/L (40-150); Anion Gap 16 mmol/L (10-20); BUN (Urea Nitrogen) 15 mg/dL (8.4-25.7); Bilirubin, Total 0.3 mg/dL (0.2-1.2); Calc. Creatinine Clearance 0 mL/min (70-130); Calcium 9.5 mg/dL (7.8-10.44); Carbon Dioxide 22 mmol/L (23-31); Chloride 103 mmol/L (98-107); Estimated GFR-MDRD 49; Globulin 3.5 g/dL (2.4-3.5); Glucose 113 mg/dL (80-115); Potassium 4.5 mmol/L (3.5-5.1); Protein, Total 7.7 g/dL (5.8-8.1); Sodium 136 mmol/L (136-145)
--- NOTE | 2018-07-04 12:36 | CT ---
CT BRAIN WITHOUT CONTRAST: HISTORY: Headache, dizziness. FINDINGS: Comparison is made with the exam of 02/12/18. No evidence of acute infarction, midline shift, or abnormal extraaxial fluid collections is seen. Th e ventricular size is normal and the basilar cisterns are patent. The bony calvarium is intact. The visualized paranasal sinuses and mastoid air cells well aerated. IMPRESSION: No CT evidence of acute intracranial process. POS: [facility]
--- NOTE | 2018-07-04 12:46 | RAD ---
PORTABLE CHEST 1 VIEW: DATE: 07/04/18. TIME: 9:54 a.m. HISTORY: Headache and fever. FINDINGS: The heart size is normal. The lungs are expanded without focal areas of consolidation, pneumothorax, or pleural effusions. IMPRESSION: No radiographic evidence of acute cardiopulmonary process. POS: [facility]
== END 2018-07-04 13:29 | disposition home or self-care (01) ==
LOC: ERS 09:43
DX: R51 Headache (principal); I10 Essential (primary) hypertension; E78.5 Hyperlipidemia, unspecified; J45.909 Unspecified asthma, uncomplicated; Z79.899 Other long term (current) drug therapy; Z79.82 Long term (current) use of aspirin; Z79.84 Long term (current) use of oral hypoglycemic drugs
CPT/HCPCS: 70450; 71045; 80053; 83605; 85025; 85610; 85730; 93005; 94760; 96360; 96361

== ENCOUNTER 2018-07-15 07:30 | Emergency (ER) | payer MEDICARE, MEDICAID ==
[2018-07-15 07:56] LABS: Hemoglobin 11.6 g/dL (14.0-18.0); Mean Corpuscular HGB CONC 32.9 g/dL (32.0-36.0); Mean Corpuscular Hemoglobin 28.3 pg (27.0-31.0); Red Blood Cell (RBC) Count 4.11 mill/uL (4.70-6.10); White Blood Cell (WBC) Count 5.7 thou/uL (4.8-10.8)
[2018-07-15 08:13] LABS: #Basophils 0.1 thou/uL (0.0-0.2); #Eosinphils 0.1 thou/uL (0.0-0.7); #Lymphocytes 1.6 thou/uL (1.20-3.40); #Monocytes 0.4 thou/uL (0.11-0.59); #Neutrophils 3.5 thou/uL (1.40-6.50); %Basophils 0.9 % (0.0-1.0); %Eosinophils 2.1 % (0.0-10.0); %Lymphocytes 28.6 % (21.0-51.0); %Monocytes 7.8 % (0.0-10.0); %Neutrophils 60.6 % (42.0-75.0); Mean Platelet Volume 7.4 fL (7.4-10.4); PLT Morphology Comment Appears Decreased; Platelet Count 100 thou/uL (130-400); RBC Distribution Width 14.2 % (11.5-14.5); RBC Morphology Normal
[2018-07-15] MEDS ORDERED: Metoclopramide HCl 10 MG/2 ML VIAL ONE (08:15)
[2018-07-15] MEDS ORDERED: diphenhydrAMINE 50 MG/ML VIAL ONE (08:15)
[2018-07-15 08:18] LABS: ALT (SGPT) 82 U/L (8-55); AST (SGOT) 110 U/L (5-34); Albumin 3.8 g/dL (3.4-4.8); Alkaline Phosphatase 99 U/L (40-150); Anion Gap 17 mmol/L (10-20); BUN (Urea Nitrogen) 15 mg/dL (8.4-25.7); Bilirubin, Total 0.3 mg/dL (0.2-1.2); CK (CPK) 136 U/L (30-200); Calc. Creatinine Clearance 0 mL/min (70-130); Calcium 8.4 mg/dL (7.8-10.44); Carbon Dioxide 20 mmol/L (23-31); Chloride 108 mmol/L (98-107); Estimated GFR-MDRD 47; Globulin 3.3 g/dL (2.4-3.5); Glucose 103 mg/dL (80-115); Potassium 4.8 mmol/L (3.5-5.1); Protein, Total 7.1 g/dL (5.8-8.1); Sodium 140 mmol/L (136-145)
[2018-07-15 08:22] LABS: CKMB 1.3 ng/mL (0-6.6); Troponin I Less than 0.010 ng/mL (< 0.028)
--- NOTE | 2018-07-15 09:17 | RAD ---
PA AND LATERAL CHEST: Date: 07/15/18 INDICATION: Dizziness and headache. COMPARISON: Prior study dated 07/04/18. FINDINGS: There is stable cardiomegaly. No focal consolidation, pleural effusion, or pneumothorax is evident. N o acute osseous abnormality is evident. IMPRESSION: No acute abnormality. POS: [facility]
--- NOTE | 2018-07-15 09:18 | CT ---
NONCONTRAST CT HEAD: Date: 07/15/18 HISTORY: Headache and dizziness. History of migraine headaches. Patient states that today's headache is locali zed to frontal region of head. COMPARISON: 07/04/18. FINDINGS: There is no evidence of a hemorrhage, acute infarction, mass effect, or midline shift. Minimal chroni c small vessel ischemic changes are noted. The ventricular system is normal in size, shape, and posit ion. There has been no interval change when compared to the prior exam. IMPRESSION: No acute intracranial abnormality is demonstrated. POS: [facility]
== END 2018-07-15 11:16 | disposition home or self-care (01) ==
LOC: ERS 07:30
DX: R51 Headache (principal); R42 Dizziness and giddiness; I10 Essential (primary) hypertension; J45.909 Unspecified asthma, uncomplicated; K74.60 Unspecified cirrhosis of liver; E78.5 Hyperlipidemia, unspecified; Z79.82 Long term (current) use of aspirin; Z79.899 Other long term (current) drug therapy; Z79.1 Long term (current) use of non-steroidal anti-inflammatories (NSAID); Z79.84 Long term (current) use of oral hypoglycemic drugs
CPT/HCPCS: 70450; 71046; 80053; 82550; 82553; 84484; 85025; 93005; 94760; 96365; 96375; J1200; J2765

== ENCOUNTER 2018-09-15 09:57 | Outpatient (CLI) | payer MEDICARE, OTHER ==
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
--- NOTE | 2018-09-15 13:55 | MRI ---
MRI LUMBAR SPINE: History: Lumbar radiculopathy, M54.16 Technique: Multiplanar, multisequence noncontrast enhanced MRI images of the lumbar spine obtained. FINDINGS: For the purposes of this dictation, the last freely mobile vertebral body will be considered to be th e L5 vertebral body. All other vertebral bodies numbered according to this. T12-L1, L1-2, L2-3: Unremarkable. L3-4: There is a minimal broad based disc bulge and mild facet hypertrophy. A small amount of fluid i s seen in the L3-4 facet joints. The central canal and neural foramen are patent. L4-5: There is mild disc desiccation. There is a mild broad based disc bulge with bilateral facet and ligamentum flavum hypertrophy. This results in mild central and lateral recess stenosis. Mild bilate ral neural foraminal narrowing is seen. No significant evidence of nerve root compression seen. L5-S1: Unremarkable. IMPRESSION: Minimal broad based disc bulges at L3-4 and L4-5. No significant evidence of central or neural forami nal narrowing seen. POS: [facility]O
== END 2018-09-15 09:58 | disposition home or self-care (01) ==
LOC: BICMRI 09:57
PROVIDERS: ATTEND Physician Assistant Surgical
DX: M51.16 Intervertebral disc disorders with radiculopathy, lumbar region (principal); M54.5 Low back pain; M43.16 Spondylolisthesis, lumbar region; M51.37 Other intervertebral disc degeneration, lumbosacral region; M46.97 Unspecified inflammatory spondylopathy, lumbosacral region
CPT/HCPCS: 72110; 72148